=== PATIENT | female | born 1940 | race Caucasian/White ===

== ENCOUNTER 2022-09-12 12:41 | Emergency (ER) | payer MEDICARE, SELFPAY ==
[2022-09-12] VITALS (17 sets, daily range): BP systolic 127–182; BP diastolic 63–80; PULSE 52–98; RESP 16–25; TEMP 36.7; O2SAT 95–100; BMI 26.5
--- NOTE | 2022-09-12 12:49 | XR_ITS ---
The [address] [address] Patient Name: BETY JOHNSON MRN: [id number] date: 1940 Sex: F Assigned Patient Location: ER Current Patient Location: ER Accession/Order Number: [id number] Exam Date: 09/12/2022 13:03 Report Date: 09/12/2022 13:20 At the request of: CONSUELO LO Procedure: XR chest 1V EXAM: XR chest 1V HISTORY: chest pain COMPARISON: None. TECHNIQUE: Single view of the chest FINDINGS: Heart size normal. No focal consolidation, pleural effusion, pulmonary congestion or pneumothorax. XR/XR chest 1V IMPRESSION: No acute findings. Electronically authenticated by: WILIAN RAM Date: 09/12/2022 13:20
--- NOTE | 2022-09-12 12:49 | ECG_ITS ---
The [facility] Test Date: 2022-09-12 Pat Name: BETY JOHNSON Department: Room: - Gender: Female [employer]: : 1940 Requested By: ALEXIS PEREYRA Order Number: [id number] Reading MD: IRIS ELY Measurements Intervals [place] Rate: 68 P: 37 PA: 174 QRS: 50 QRSD: 82 T: 51 QT: 384 QTc: 402 Interpretive Statements 1100 Sinus rhythm 8102 Low QRS voltage in chest leads 9120 atypical ECG No previous ECG available for comparison Electronically Signed On 09-13-2022 7:07:44 EDT by IRIS ELY
--- NOTE | 2022-09-12 12:51 | ED.CHESTPAI1 ---
HPI - Chest Pain General Chief Complaint: Chest Pain Stated Complaint: CHEST PAIN AND DIZZINESS Time Seen by Provider: 09/12/22 12:46 History of Present Illness HPI narrative: 81-year-old female presents to the emergency department for chest pain. It started fifteen or twenty minutes ago when she was sitting at home. It's on the right side of her chest and goes through to her back. She states she got clammy when it happened. She has no personal history of heart disease. She states that the pain is letting up somewhat now. It was moderate. No unusual activity or any sort of injury. Related Data Home Medications Medication Instructions Recorded Confirmed amlodipine 5 mg tablet 5 mg PO DAILY 09/12/22 09/12/22 dorzolamide 22.3 mg-timolol 6.8 1 drp ophthalmic (eye) Q12H 09/12/22 09/12/22 mg/mL eye drops latanoprost 0.005 % eye drops 1 drp ophthalmic (eye) DAILY 09/12/22 09/12/22 lisinopril 10 mg tablet 10 mg PO DAILY 09/12/22 09/12/22 meclizine 12.5 mg tablet 12.5 mg PO TID PRN dizziness 09/12/22 09/12/22 omeprazole 20 mg capsule,delayed 20 mg PO DAILY 09/12/22 09/12/22 release Allergies Allergy/AdvReac Type Severity Reaction Status Date / Time No Known Drug Allergies Allergy Verified 09/12/22 12:53 Review of Systems ROS Narrative A ten point review of systems is negative except as noted above. Exam Narrative Exam Narrative: Nurses note and vital signs reviewed and patient is not hypoxic. General: The patient appears well and in no apparent distress. Patient is resting comfortably on cart. Skin: Warm, dry, no pallor noted. There is no rash noted. Head: Normocephalic, atraumatic Eye: Normal conjunctiva, no drainage Ears, Nose, Mouth, and Throat: oral mucosa is moist. Nares patent. Cardiovascular: Regular Rate and Rhythm Respiratory: Patient is in no distress, no accessory muscle use, lungs are clear to auscultation, no wheezing, rales or rhonchi Back: non-tender GI: soft and nontender Musculoskeletal: The patient has no evidence of calf tenderness, no pitting edema, symmetrical pulses noted bilaterally Neurological: A&O, normal speech Psychiatric: Cooperative Constitutional Vital Signs, click to edit/add: Last Vital Signs Temp 98.1 F 09/12/22 12:45 Pulse 54 L 09/12/22 14:40 Resp 19 09/12/22 14:40 BP 151/74 H 09/12/22 14:30 Pulse Ox 99 09/12/22 14:40 O2 Del Method Room Air 09/12/22 12:45 Course Vital Signs Vital signs: Vital Signs Temperature 98.1 F 09/12/22 12:45 Pulse Rate 78 09/12/22 12:45 Respiratory Rate 20 09/12/22 12:45 Blood Pressure 182/78 H 09/12/22 12:45 Pulse Oximetry 100 09/12/22 12:45 Oxygen Delivery Method Room Air 09/12/22 12:45 Temperature 98.1 F 09/12/22 12:45 Pulse Rate 54 L 09/12/22 14:40 Respiratory Rate 19 09/12/22 14:40 Blood Pressure 151/74 H 09/12/22 14:30 Pulse Oximetry 99 09/12/22 14:40 Oxygen Delivery Method Room Air 09/12/22 12:45 MDM - Chest Pain MDM Narrative Medical decision making narrative: workup is negative including two sets of troponin. Chest x-ray also negative. She's been having side effects of the lisinopril including a cough. She was supposed to see her PCP today. We'll have her stop the lisinopril for now and she'll call her PCP and reschedule the appointment, preferably in a few days. Treatment diagnosis and follow-up were discussed with the patient. At this point I do not suspect cardiac etiology. Treatment, diagnosis and follow-up were discussed with the patient and her . Differential Diagnosis Differential diagnosis: Likely pneumothorax, stable angina, atypical chest pain, st elevation myocardial infarction, costochondritis and chest pain Lab Data Attestation: I reviewed the patient's lab results. Labs: Lab Results 09/12/22 09/12/22 Range/Units 12:55 13:58 WBC 6.0 (4.0-11.0) 10^3/uL RBC 4.60 (4.20-5.40) 10^6/uL Hgb 14.3 (12.0-16.0) g/dL Hct 41.5 (36.0-48.0) % MCV 90.2 (81.0-99.0) fL MCH 31.1 (26.7-34.0) pg MCHC 34.5 (29.9-35.2) g/dL RDW 12.1 (11.0-15.0) % Plt Count 318 (150-450) 10^3/uL MPV 9.1 L (9.5-13.5) fL Neut % (Auto) 65.0 (43.0-75.0) % Lymph % (Auto) 25.9 (20.5-60.0) % Hickman % (Auto) 6.8 (1.7-12.0) % Eos % (Auto) 1.3 (0.9-7.0) % Baso % (Auto) 0.7 (0.2-2.0) % Neut # (Auto) 3.9 (1.4-6.5) 10^3/uL Lymph # (Auto) 1.6 (1.2-3.8) 10^3/uL Hickman # (Auto) 0.4 (0.3-0.8) 10^3/uL Eos # (Auto) 0.1 (0.0-0.7) 10^3/uL Baso # (Auto) 0.0 (0.0-0.1) 10^3/uL Abs Immat Gran (auto) 0.02 (0.00-0.03) 10^3/uL Imm/Tot Granulo (auto) 0.3 (0.0-0.5) % Sodium 135 L (136-145) mmol/L Potassium 4.1 (3.5-5.1) mmol/L Chloride 101 (98-107) mmol/L Carbon Dioxide 25.2 (21.0-32.0) mmol/L Anion Gap 12.9 BUN 10.0 (7.0-18.0) mg/dL Creatinine 0.75 (0.55-1.02) mg/dL Est GFR ( Amer) >60 (>=60) Est GFR (Non-Af Amer) >60 (>=60) BUN/Creatinine Ratio 13.3 Glucose 138 H (74-106) mg/dL Calcium 9.3 (8.5-10.1) mg/dL Troponin I High Sens 17.3 15.7 (4.0-51.3) pg/mL Imaging Data Chest x-ray: Radiologist's impression: no acute findings ECG Data Attestation: I personally reviewed and interpreted this ECG as follows: (EKG on my interpretation shows sinus rhythm with a rate of 68. No acute changes.) ECG interpretation date: 09/12/22 ECG interpretation time: 12:54 Heart Score History: Slightly/Non-Suspicious ECG: Normal Age: >65 years Risk Factors: 1 or 2 Risk Factors Troponin: <Normal Limit Total Heart Score Recommendations & Risks:: 3 Discharge Plan Discharge Chief Complaint: Chest Pain Clinical Impression: Chest pain Patient Disposition: Home, Self-Care Time of Disposition Decision: 14:50 Condition: Good Mode of Transportation: Private Vehicle Prescriptions / Home Meds: No Action amlodipine 5 mg tablet 5 mg PO DAILY dorzolamide-timolol 22.3-6.8 mg/mL drops 1 drp ophthalmic (eye) Q12H latanoprost 0.005 % drops 1 drp OPHTHALMIC (EYE) DAILY lisinopril 10 mg tablet 10 mg PO DAILY meclizine 12.5 mg tablet 12.5 mg PO TID PRN (Reason: dizziness) omeprazole 20 mg capsule,delayed release(DR/EC) 20 mg PO DAILY Instructions: Chest Pain (ED) Additional Instructions: discontinue lisinopril; call today to reschedule your appointment with Dr. Pérez Stand Alone Forms: Portal Instructions Referrals: Vidya Pérez MD [Primary Care Provider] - 1 week
[2022-09-12] MEDS: NITROGLYCERIN 0.4 MG TAB.SUBL PO ×2 (12:59→13:30)
[2022-09-12] MEDS: ASPIRIN 81 MG TAB.CHEW 324 MG PO (13:00)
[2022-09-12 13:06] LABS: Basophils Percent Auto 0.7 % (0.2-2.0); Eosinophils Absolute Auto 0.1 10^3/uL (0.0-0.7); Eosinophils Percent Auto 1.3 % (0.9-7.0); Hematocrit 41.5 % (36.0-48.0); Hemoglobin 14.3 g/dL (12.0-16.0); Immature Granulocytes Abs Auto 0.02 10^3/uL (0.00-0.03); Immature Granulocytes Pct Auto 0.3 % (0.0-0.5); Lymphocytes Absolute Auto 1.6 10^3/uL (1.2-3.8); Lymphocytes Percent Auto 25.9 % (20.5-60.0); Mean Corpuscular HGB Conc 34.5 g/dL (29.9-35.2); Mean Corpuscular Hemoglobin 31.1 pg (26.7-34.0); Mean Corpuscular Volume 90.2 fL (81.0-99.0); Mean Platelet Volume 9.1 fL (9.5-13.5); Monocytes Absolute Auto 0.4 10^3/uL (0.3-0.8); Monocytes Percent Auto 6.8 % (1.7-12.0); Neutrophils Absolute Auto 3.9 10^3/uL (1.4-6.5); Platelet Count 318 10^3/uL (150-450); Red Cell Distribution Width 12.1 % (11.0-15.0)
[2022-09-12 13:19] LABS: Anion Gap 12.9; BUN Creatinine Ratio 13.3; Calcium 9.3 mg/dL (8.5-10.1); Carbon Dioxide 25.2 mmol/L (21.0-32.0); Chloride 101 mmol/L (98-107); Estimated GFR (African America >60 (>=60); Estimated GFR (Non-African Ame >60 (>=60); Glucose 138 mg/dL (74-106); Potassium 4.1 mmol/L (3.5-5.1); Sodium 135 mmol/L (136-145); Troponin I High Sensitivity 17.3 pg/mL (4.0-51.3)
[2022-09-12 14:21] LABS: Troponin I High Sensitivity 15.7 pg/mL (4.0-51.3)
== END 2022-09-12 14:58 | disposition home or self-care (01) ==
PROVIDERS: Emergency Provider Emergency Medicine; PCP Family Medicine
DX: R07.9 Chest pain, unspecified (principal); Z79.899 Other long term (current) drug therapy
CPT/HCPCS: 36415; 71045; 80048; 84484; 85025; 93005; 99285

== ENCOUNTER 2022-11-07 07:50 | Outpatient (OUT) | payer MEDICARE, SELFPAY ==
--- NOTE | 2022-11-07 | NM_ITS ---
Patient: BETY JOHNSON Exam Date: 11/07/2022 : 1940 Gender:F Ordering : RICHMOND GR Admission #: [id number] Family : DR Vidya Pérez M.D. Order #: [id number] CLICK HERE TO VIEW EXAM RADIOLOGY REPORT PROCEDURE: NM WILBUR PERF SPECT REST STR COMPARISON: None. INDICATIONS: CHEST PAIN TECHNIQUE: Exam Description: Stress/Rest one day protocol gated SPECT Rest Imagin.6 mCi Tc-99m Cardiolite IV on 11/07/2022 Stress Imaging 31.5 mCi Tc-99m Cardiolite IV on 11/07/2022 Exercise Protocol: Power Heart Rate (bpm): Rest: 53 Max: 121 PMHR: 85 Blood Pressure: Rest: 124/78 Max: 184/86 Exercise Time: Minutes: 4 Seconds: 32 Stage Reached: Stage: 1 Mets 4.6 Symptoms: Rest and peak stress ECG findings were normal and the exercise portion of the study was normal per attending physician Dr. Gr . For more details please see separate cardiac stress test report. FINDINGS: QUALITY OF STUDY: Excellent. PERFUSION DEFECT: None. LOCATION: N/A SIZE: N/A. SEVERITY: N/A. TYPE: N/A. WALL MOTION: Normal. LV SIZE: Normal. 55 mL. TID / TCD: None; 0.8 LVEF: Normal. Calculated EF 78%. SUMMARY: Myocardial perfusion imaging study is NORMAL. CONCLUSION: 1. No reversible ischemia 2. Normal exercise test Dictated by: Storm Hernandez MD on 11/08/2022 at 10:54 Approved by: Storm Hernandez MD on 11/08/2022 at 10:56
--- NOTE | 2022-11-07 | PCN_ITS ---
CARDIAC STRESS TEST Requesting Physician:? Savanna Ramos M.D. Procedure Date:? 11/07/2022 ORDERING PROVIDER:? Savanna Ramos M.D. INDICATIONS:? Chest pain. STRESS TEST TYPE:? Treadmill with nuclear myocardial perfusion scan. Resting EKG:? Sinus bradycardia. Protocol:? Power Resting heart rate:? 53 Peak heart rate:? 121 Peak maximal heart rate percentage:? 85% Resting blood pressure:? 124/78 Peak blood pressure:? 184/86 Exercise time:? 4 minutes, 32 seconds Stage reached:? 1 Max METS:? 4.6 Reason for termination:? Target heart rate achieved. Heart rate recovery:? Normal. Chronotropic response index:? Abnormal, 0.77. Functional capacity:? Average. Blood pressure response:? Normal. CONCLUSIONS: 1.? Abnormal resting EKG with sinus bradycardia. 2.? No definite EKG changes meeting criteria for ischemia. 3.? Reyes treadmill score of 4, portending intermediate risk for angiographic coronary artery disease.? 4.? Please refer to separately interpreted and reported nuclear myocardial perfusion imaging. [facility]
== END 2022-11-07 07:51 | disposition home or self-care (01) ==
LOC: NM 07:51
PROVIDERS: PCP Family Medicine; Visit Provider Internal Medicine Cardiovascular Disease
DX: R07.9 Chest pain, unspecified (principal)
CPT/HCPCS: 78452; 93017; A9500

== ENCOUNTER 2022-11-09 09:57 | Outpatient (OUT) | payer MEDICARE, SELFPAY ==
--- NOTE | 2022-11-09 10:38 | CA_ITS ---
Patient: BETY JOHNSON Exam Date: 11/09/2022 : 1940 Gender:F Ordering : RICHMOND GR Admission #: [id number] Family : DR Vidya Pérez M.D. Order #: [id number] CLICK HERE TO VIEW EXAM ECHOCARDIOGRAM REPORT PROCEDURE: CA ECHO DOPPLER COMPLETE INDICATIONS: Dyspnea, hypertension COMPARISON: None. DESCRIPTION: COMPLETE ECHOCARDIOGRAM Real-time transthoracic echocardiography with 2D, M-mode, spectral and color flow Doppler performed. QUALITY: Technical quality was good. LEFT VENTRICLE: Normal chamber size. Mild concentric left ventricular hypertrophy. LV EF: Global left ventricular systolic function is normal; visually estimated ejection fraction is 60 to 65%. No obvious wall motion abnormalities. DIASTOLIC: Normal diastolic function. ATRIAL SEPTUM: Visually appears intact. LEFT ATRIUM: Normal chamber size. RIGHT ATRIUM: Normal chamber size. RIGHT VENTRICLE: Normal chamber size. Normal right ventricular systolic function. TRICUSPID VALVE: Normal mobility and thickness. No stenosis with trivial regurgitation. No evidence of pulmonary hypertension. RVSP 28 mmHg MITRAL VALVE: Normal mobility and thickness. No evidence of mitral valve stenosis. There is no mitral annular calcification. Mild mitral regurgitation. AORTIC VALVE: Normal trileaflet appearance. No visible sclerosis. Normal leaflet mobility. No evidence of aortic valve stenosis. Mild aortic regurgitation. AORTIC ROOT: Normal diameter and appearance. PULMONIC VALVE: Normal thickness and mobility. No stenosis. Mild regurgitation. PERICARDIUM: No evidence of pericardial effusion. IVC: Collapses with inspirations. CONCLUSION: 1. Global left ventricular systolic function is normal; visually estimated ejection fraction is 60 to 65% 2. Mildly increased left ventricular wall thickness 3. Normal diastolic function 4. Right ventricle is normal in size and systolic function 5. Mild mitral regurgitation 6. Mild aortic regurgitation 7. Mild pulmonic regurgitation Adult Echocardiography Procedure Report Left Ventricle LVEDD (3.7 - 5.6 cm): 3.72 cm LVESD (2.2 - 4.0 cm): 2.85 cm LVIVS thickness (0.6 - 1.2 cm): 1.06 cm LVPW thickness (0.5 - 1.0 cm): 1.02 cm e': 0.12 m/s E - e': 7.46 LVOT Max Gradient: 4.63 mm[Hg] LVOT Area (cm2): 1.08 m/s Peak Velocity (LVOT): 1.08 m/s Mean Velocity (LVOT): 0.73 m/s LVOT Diameter 1.79 cm Left Atrium LA Volume Index (2D A2C): 31.71 ml/m2 Left Atrium Systolic Dimension: 3.69 cm Mitral Valve MV E to A Ratio: 0.89 Mitral Valve A-Wave Peak Velocity: 0.97 m/s Mitral Valve E-Wave Peak Velocity: 0.86 m/s Right Ventricle Aorta AO Root Diam: 2.79 cm Aortic Valve AoV Area (Peak Cassius): 2.38 cm2, 2.38 cm2 Peak Velocity(Antegrade Flow): 1.13 m/s Peak Gradient(Antegrade Flow): 5.15 mm[Hg] Tricuspid Valve Peak Velocity (Regurgitant Flow): 2.26 m/s, 2.51 m/s, 2.49 m/s Pulmonic Valve Mean Gradient: 1.78 mm[Hg], 2.03 mm[Hg] Mean Velocity: 0.62 m/s, 0.66 m/s Peak Velocity: 0.92 m/s, 0.88 m/s Peak Gradient: 3.10 mm[Hg], 3.22 mm[Hg], 3.50 mm[Hg] Right Atrium Right Atrium Systolic Pressure: 32.02 ml, 32.02 ml Dictated by: Jacqueline Eric M.D. on 11/10/2022 at 16:45 Approved by: Jacqueline Eric M.D. on 11/10/2022 at 16:50
== END 2022-11-09 09:58 | disposition home or self-care (01) ==
LOC: CARD 09:57
PROVIDERS: PCP Family Medicine; Visit Provider Internal Medicine Cardiovascular Disease
DX: R06.02 Shortness of breath (principal); I08.8 Other rheumatic multiple valve diseases
CPT/HCPCS: 93306

== ENCOUNTER 2023-01-01 15:01 | Outpatient (OUT) | payer MEDICARE, SELFPAY ==
[2023-01-01 15:53] LABS: Anion Gap 13.5; BUN Creatinine Ratio 19.2; Calcium 8.2 mg/dL (8.5-10.1); Carbon Dioxide 28.1 mmol/L (21.0-32.0); Chloride 106 mmol/L (98-107); Estimated GFR (African America >60 (>=60); Estimated GFR (Non-African Ame >60 (>=60); Glucose 91 mg/dL (74-106); Potassium 3.6 mmol/L (3.5-5.1); Sodium 144 mmol/L (136-145)
== END 2023-01-01 15:02 | disposition home or self-care (01) ==
LOC: LAB 15:02
PROVIDERS: PCP Family Medicine; Visit Provider Internal Medicine Cardiovascular Disease
DX: I11.9 Hypertensive heart disease without heart failure (principal)
CPT/HCPCS: 36415; 80048

== ENCOUNTER 2023-04-06 10:51 | Outpatient (OUT) | payer MEDICARE, SELFPAY ==
--- NOTE | 2023-04-06 10:54 | MM_ITS ---
Patient Name: BETY JOHNSON MR#: [id number] : 1940 Exam Date: 04/06/2023 Ordering Doctor: DR Vidya Préez M.D. RADIOLOGY REPORT PROCEDURE: MM TOMOSYNTHESIS SCREENING BI COMPARISON: MG MAMM SCREEN CHRIS W CAD, 10/18/2018. MG MAMM SCREEN 3D CHRIS CAD, 12/07/2021. INDICATIONS: screening Calculator Name NCI Breast Cancer Risk Assessment Tool 5 Year Breast Cancer Risk 2.00% Lifetime Breast Cancer Risk 3.00% Personal Breast Cancer No Personal Ovarian Cancer No Treatments None Family Cancers None LOCATION: The [facility] BREAST COMPOSITION: Heterogeneously dense,which may obscure small masses. FINDINGS: DIAGNOSTIC CATEGORY 2--BENIGN FINDING. NO CHANGE FROM COMPARISON. Scattered benign-appearing calcifications are present. Scattered benign-appearing lymph nodes are present. RIGHT BREAST: No significant suspicious finding. LEFT BREAST: No significant suspicious finding. RECOMMENDATIONS: ROUTINE MAMMOGRAM AND CLINICAL EVALUATION IN 12 MONTHS. PLEASE NOTE: A NORMAL MAMMOGRAM DOES NOT EXCLUDE THE POSSIBILITY OF BREAST CANCER. A CLINICALLY SUSPICIOUS PALPABLE LUMP SHOULD BE BIOPSIED. Dictated by: Storm Hernandez MD on 04/06/2023 at 12:47 Approved by: Storm Hernandez MD on 04/06/2023 at 13:00
--- OUTSIDE RECORDS SUMMARY | 2023-04-06 11:01 | XMS_ITS | CCD ---
Author Name Unknown Address [address] [place] [address] Organization [facility] Care Team Providers Care Organizational Effectiveness Director Name Role Phone DR VIDYA PEREYRA Primary Care Unavailable GABI WARD Admitting Unavailable GABI WARD Attending Unavailable GABI WARD Consulting Unavailable ALINA MATOS Consulting UnavailVERNON Mariscal Consulting Unavailable HAFSA, DR VIDYA Mello Admitting Unavailable HAFSA, DR VIDYA Mello Attending Unavailable HAFSA, DR VIDYA Mello Primary Care Unavailable ROACH, DR VINICIUS Gonzalez Consulting Unavailable HAFSA, DR VIDYA Mello Consulting Unavailable Vidya Pereyra Unavailable Sneha Jaramillo Unavailable DO Joce Moreno Primary Care Provider MD Vidya Pereyra Attending Provider [phone] Vidya Pereyra Admitting Unavailable Vidya Pereyra Attending Unavailable Joce Moreno Primary Care Unavailable EULA NIETO Attending Unavailable SAVANNA RAMOS Attending Unavailable SAVANNA RAMOS Attending Unavailable Allergies Allergy Classification Reported Allergen(s) Allergy Type Date of Onset Reaction(s) Facility (1 source) Sulfonamides (Antibiotic) Drug allergy (disorder) [facility] Repository (8 sources) Sulfacetamide / Sulfur Drug Allergy Unknown [employer] Other (6 sources) Sulfamethoxazole / Trimethoprim Drug Allergy 09-01-19 Unknown [employer] Other (1 source) patient allergy list reviewed by nurse or physicia Propensity to adverse reactions 04-21-19 Comment:Done [employer] Other (1 source) Allergies Reconciled Propensity to adverse reactions Unknown [employer] Other (1 source) Sulfamethoxazole / Trimethoprim; Translations: [SULFAMETHOXAZOLE-T RIMETHOPRIM] Drug Allergy 10-28-19 [facility] Repository (1 source) Sulfonamides (Antibiotic); Translations: [SULFA (SULFONAMIDE ANTIBIOTICS)] Propensity to adverse reactions to drug (disorder) 10-28-19 [facility] Repository Medications Current Medications Medication Drug Class(es) Dates Sig (Normalized) Sig (Original) amLODIPine 5 mg oral tablet (8 sources) Dihydropyridine Calcium Channel Nhung amLODIPine Besylate 5 MG TAKE 1 TABLET BY MOUTH EVERY DAY FOR 90 DAYS for 90 Active azithromycin 250 mg oral tablet (1 source) Macrolide Antimicrobial Start: 06-15-2022 Azithromycin 250 MG as directed Orally 2 tabs po today, then 1 tab daily x 4 more days for 5 June, Active ciprofloxacin 250 mg oral tablet (2 sources) Quinolone Antimicrobial Start: 12-05-2022 take 1 tablet by mouth every twelve hours Ciprofloxacin HCl 250 MG 1 tablet Orally every 12 hrs for 5 day(s) Nov, Active lisinopril 10 mg oral tablet (4 sources) Angiotensin Converting Enzyme Inhibitor take 1 tablet by mouth every twenty-four hours Lisinopril 10 MG 1 tablet Orally Once a day for 90 days Active losartan potassium 50 mg oral tablet (4 sources) Angiotensin 2 Receptor Nhung take 1 tablet by mouth every twenty-four hours Losartan Potassium 50 MG 1 tablet once a day for 30 days Active take 1 tablet by tiana th every twenty-four hours Losartan Potassium 25 MG 1 tablet Orally Once a day for 30 days Active meclizine hydrochloride 12.5 mg oral tablet (2 sources) Antiemetic Start: 09-06-2022 take 1 tablet by mouth every eight hours Meclizine HCl 12.5 MG 1 tablet as needed Orally every 8 hrs for 10 days Sep, Active omeprazole 20 mg delayed release oral capsule (8 sources) Proton Pump Inhibitor take 1 capsule by mouth once daily Omeprazole 20 MG Take 1 capsule by mouth once daily for 90 Active take 1 tablet by mouth once manny y Omeprazole 20 MG 1 tablet 30 minutes before morning meal Orally Once a day Active simvastatin 20 mg oral tablet (8 sources) HMG-CoA Reductase Inhibitor take 1 tablet by mouth every twenty-four hours Simvastatin 20 MG 1 tablet in the evening Orally Once a day Active Completed/Discontinued Medications Medication Drug Class(es) Dates Sig (Normalized) Sig (Original) acetaminophen 325 mg / HYDROcodone bitartrate 5 mg oral tablet (1 source) Opioid Agonist take 1 tablet by tiana th every six hours HYDROcodone-Acetami nophen 5-325 MG 1 tablet as needed Orally every 6 hrs Not-Taking Problems Active Problems Problem Classification Problem Date Documented Date Episodic/Chronic Chronic obstructive pulmonary disease and bronchiectasis (1 source) Bronchitis, not specified as acute or chronic Episodic Conditions associated with dizziness or vertigo (6 sources) Benign paroxysmal positional vertigo; Translations: [Benign paroxysmal vertigo, unspecified ear] Onset: 05-29-2017 Episodic Disorders of lipid metabolism (7 sources) Hyperlipidemia, unspecified; Translations: [Hyperlipidemia] Onset: 12-07-2021 Chronic E Codes: Struck by; against (1 source) Striking against or struck by other objects, initial encounter; Translations: [STRIKING AGNST/STRUCK OTH OBJ INIT] Onset: 02-01-2022 Episodic Esophageal disorders (3 sources) Gastroesophageal reflux disease without esophagitis; Translations: [Gastro-esophageal reflux disease without esophagitis] Chronic Essential hypertension (14 sources) Essential (primary) hypertension; Translations: [Essential hypertension] Onset: 02-01-2022 Chronic Genitourinary symptoms and ill-defined conditions (5 sources) Dysuria; Translations: [Dysuria] Onset: 10-12-2016 Episodic Headache; including migraine (4 sources) Headache; including migraine; Translations: [HEADACHE UNSPECIFIED] Onset: 01-28-2022 Heart valve disorders (4 sources) Nonrheumatic aortic (valve) insufficiency; Translations: [Nonrheumatic mitral (valve) insufficiency] Onset: 12-18-2022 Chronic Hypertension with complications and secondary hypertension (2 sources) Hypertensive heart disease without heart failure; Translations: [Hypertensive heart disease without heart failure] Onset: 12-18-2022 Chronic Immunizations and screening for infectious disease (3 sources) Vaccination given; Translations: [Encounter for immunization] Episodic Nonspecific chest pain (11 sources) Chest pain; Translations: [Chest pain, unspecified] Onset: 04-20-2014 Episodic Osteoarthritis (3 sources) Osteoarthritis; Translations: [Polyosteoarthritis, unspecified] Onset: 04-27-2014 Chronic Other aftercare (1 source) Other chcf (current) drug therapy; Translations: [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 THERAPY] Onset: 02-01-2022 Episodic Other injuries and conditions due to external causes (3 sources) History of fall; Translations: [History of falling] Episodic Other screening for suspected conditions (not mental disorders or infectious disease) (1 source) Encounter for screening mammogram for malignant neoplasm of breast; Translations: [ENC SCR MAMMO MALIG NEOPLASM BREAST] Onset: 12-12-2021 Episodic Past or Other Problems Problem Classification Problem Date Documented Da te Episodic/Chronic Acute bronchitis (3 sources) Acute bronchitis; Translations: [Acute bronchitis, unspecified] Onset: 04-28-2015 Episodic Headache; including migraine (1 source) Headache; Translations: [Headache] Onset: 05-29-2017 Episodic Inflammatory diseases of female pelvic organs (3 sources) Acute vaginitis; Translations: [Acute vaginitis] Onset: 09-14-2014 Episodic Other gastrointestinal disorders (3 sources) Heartburn; Translations: [Heartburn] Onset: 04-20-2014 Episodic Other injuries and conditions due to external causes (1 source) Closed fracture; Translations: [Closed fracture of unspecified bone] Onset: 01-28-2013 Episodic Other lower respiratory disease (2 sources) Other forms of dyspnea; Translations: [Other forms of dyspnea] Onset: 10-27-2022 Episodic Spondylosis; intervertebral disc disorders; other back problems (2 sources) Low back pain; Translations: [Lumbago] Onset: 01-27-2013 Episodic Results Test Name Value Interpretation Reference Range Facility Office Visiton 03-02-2023 Follow-up visit [id number] Ana Mays 1940 F Date Provider Department Center 03/02/2023 120-EULA NIETO LYNDA [place] Family History Problem Relation Age of Onset Coronary artery disease Father Cancer Daughter Family Status - Relation Status Age at Father Daughter Other Level of Service:66448 CO OFFICE/OUTPATIENT ESTABLISHED LOW MDM 20 MIN Normal [facility] Office Visiton 12-18-2022 Follow-up visit [id number] Ana Mays 1940 F Date Provider Department Center 12/18/2022 3848-SAVANNA RAMOS Family History Problem Relation Age of Onset Coronary artery disease Father Cancer Daughter Family Status - Relation Status Age at Father Daughter Other Level of Service:30766 CO OFFICE/OUTPATIENT ESTABLISHED MOD MDM 30-39 MIN Normal [facility] Urine Cultureon 12-05-2022 Bacteria identified Cx Nom (U) Reason for Exam Dysuria Urine Reason for Exam: Dysuria : Urine 20,000 colonies/ml mixed bacterial skin contaminants 2 Days PERFORMED BY: [facility] [address] [id number] PATHOLOGIST [employer]ER WILFRED SALAS M.D. Normal [facility] Comment on above: Performed By: #### C UU #### [facility] [address] [place] [address] [facility] Office Visiton 10-27-2022 Follow-up visit [id number] Ana Mays 1940 F Date Provider Department Center 10/27/2022 SAVANNA MCDANIEL [facility] Family History Problem Relation Age of Onset Coronary artery disease Father Cancer Daughter Family Status - Relation Status Age at Father Daughter Other Level of Service:29900 CO OFFICE/OUTPATIENT NEW MODERATE MDM 45-59 MINUTES Normal [facility] CARDIAC CRIS ADMITon 022 CK [Catalytic activity/Vol] 58 U/L Normal 26-192 [facility] Comment on above: Performed By: #### C MADM #### [facility] [address] [address] [address] Lamberto Hamm CK.MB [Mass/Vol] 1.23 ng/mL Normal <=3.[address] [facility] Comment on above: Performed By: #### C MADM #### [facility] [address] [address] [address] Lamberto Hamm HSTROP 10.2 pg/mL Normal 4.0-51.3 [facility] Comment on above: Result Comment: CUT- OFF POINTS HAVE BEEN ESTABLISHED BASED ON THE FOURTH UNIVERSAL DEFINITIONS OF MYOCARDIAL INFARCTION. THE UPPER REFERENCE LIMIT (URL) OF TROPONIN, DEFINED THE 99TH PERCENTILE OF cTnI DISTRIBUTION IN A REFERENCE POPULATION, HAS BEEN CONFIRMED THE DECISION THRESHOLD FOR [place] DIAGNOSIS. Performed By: #### C MADM #### [facility] [address] [address] [address] Lamberto Hamm WILBUR 59 ng/mL Normal 9-82 [facility] Comment on above: Performed By: #### C MADM #### [facility] [address] [place] [address] Dr. Lamberto Hamm CBC AUTO DIFFon 01-28-2022 BASO # 0.0 103/ul Normal 0.0-0.1 [facility] Comment on above: Performed By: #### C BC #### [facility] [address] [place] [address] Dr. Lamberto Hamm Basophils/100 WBC (Bld) 0.5 % Normal 0.2-2.0 [facility] Comment on above: Performed By: #### C BC #### [facility] [address] [place] [address] Dr. Lamberto Hamm EO # 0.2 103/ul Normal 0.0-0.7 [facility] Comment on above: Performed By: #### C BC #### [facility] [address] [place] [address] Dr. Lamberto Hamm Eosinophils/100 WBC (Bld) 3.2 % Normal 0.9-7.0 [facility] Comment on above: Performed By: #### C BC #### [facility] [address] [place] [address] Dr. Lamberto Hamm Erythrocyte distribution width (RBC) [Ratio] 12.4 % Normal 11.0-15.0 [facility] Comment on above: Performed By: #### C BC #### [facility] [address] [place] [address] Dr. Lamberto Hamm Hematocrit (Bld) [Volume fraction] 40.3 % Normal 36.0-48.0 [facility] Comment on above: Performed By: #### C BC #### [facility] [address] [place] [address] Dr. Lamberto Hamm Hemoglobin (Bld) [Mass/Vol] 13.9 g/dL Normal 12.0-16.0 [facility] Comment on above: Performed By: #### C BC #### [facility] [address] [place] [address] Dr. Lamberto Hamm IG # 0.01 10e3/ul Normal 0.00-0.03 [facility] Comment on above: Performed By: #### C BC #### [facility] [address] [place] [address] Dr. Lamberto Hamm IG % 0.2 % Normal 0.0-0.5 [facility] Comment on above: Performed By: #### C BC #### [facility] [address] [place] [address] Dr. Lamberto Hamm LYMPH # 1.0 103/ul Critically low 1.2-3.8 [facility] Comment on above: Performed By: #### C BC #### [facility] [address] [place] [address] Dr. Lamberto Hamm Lymphocytes/100 WBC (Bld) 17.4 % Critically low 20.5-60.0 [facility] Comment on above: Performed By: #### C BC #### [facility] [address] [place] [address] Dr. Lamberto Hamm MANUAL DIFF REQ NO Normal [facility] Comment on above: Performed By: #### C BC #### [facility] [address] [place] [address] Dr. Lamberto Hamm MCH (RBC) [Entitic mass] 30.8 pg Normal 26.7-34.0 [facility] Comment on above: Performed By: #### C BC #### [facility] [address] [place] [address] Dr. Lamberto Hamm MCHC (RBC) [Mass/Vol] 34.5 g/dL Normal 29.9-35.2 [facility] Comment on above: Performed By: #### C BC #### [facility] [address] [place] [address] Dr. Lamberto Hamm MCV (RBC) [Entitic vol] 89.2 fL Normal 81.0-99.0 [facility] Comment on above: Performed By: #### C BC #### [facility] [address] [place] [address] Dr. Lamberto Hamm MONO # 0.5 103/ul Normal 0.3-0.8 [facility] Comment on above: Performed By: #### C BC #### [facility] [address] [place] [address] Dr. Lamberto Hamm Monocytes/100 WBC (Bld) 7.7 % Normal 1.7-12.0 [facility] Comment on above: Performed By: #### C BC #### [facility] [address] [place] [address] Dr. Lamberto Hamm NEUT # 4.2 103/ul Normal 1.4-6.5 [facility] Comment on above: Performed By: #### C BC #### [facility] [address] [place] [address] Dr. Lamberto Hamm Neutrophils/100 WBC (Bld) 71.0 % Normal 43.0-75.0 [facility] Comment on above: Performed By: #### C BC #### [facility] [address] [place] [address] Dr. Lamberto Hamm Platelet mean volume (Bld) [Entitic vol] 9.5 fL Normal 9.5-13.5 [facility] Comment on above: Performed By: #### C BC #### [facility] [address] [place] [address] Dr. Lamberto Hamm PLT 284 103/ul Normal 150-450 [facility] Comment on above: Performed By: #### C BC #### [facility] [address] [place] [address] Dr. Lamberto Hamm RBC 4.52 106/ul Normal 4.20-5.40 [facility] Comment on above: Performed By: #### C BC #### [facility] [address] [place] [address] Dr. Lamberto Hamm WBC 5.9 103/ul Normal 4.0-11.0 [facility] Comment on above: Performed By: #### C BC #### [facility] [address] [place] [address] HEAD WO CONon 01-28-2022 CT HEAD WO CON EXAMINATION: CT HEAD WO CON HISTORY: Headache CT head 11/12/2019 TECHNIQUE: CT examination of the head without IV contrast. Dose reduction techniques were achieved by using automated exposure control and/or adjustment of mA and/or kV according to patient size and/or use of iterative reconstruction technique. FINDINGS: Calvarium/skull base: No evidence of acute fracture or destructive lesion. Mastoids and middle ears demonstrate no substantial mucosal disease. Paranasal sinuses: No air fluid levels. Brain: No acute intracranial hemorrhage. No acute large vascular territory infarct. Minimal parenchymal volume loss with associated prominence of the ventricular system and sulci. Similar focal area of hypoattenuation along the anterior left frontal horn of the lateral ventricle unchanged from 2019 likely relating to remote infarct versus sequela small vessel disease. No mass lesion or mass effect. No hydrocephalus. Intracranial atherosclerosis. IMPRESSION: 1. No CT evidence for acute intracranial process. 2. Mild senescent changes detailed above. Electronically authenticated by: ALINA MATOS Date: 2022-01-28 09:32 Normal [facility] PROF 14(COMP METB)on 022 Albumin [Mass/Vol] 3.6 g/dL Normal 3.4-5.0 [facility] Comment on above: Performed By: #### C MP #### [facility] [address] [place] [address] Dr. Lamberto Hamm Albumin/Globulin [Mass ratio] 1.0 {ratio} Normal [facility] Comment on above: Performed By: #### C MP #### [facility] [address] [place] [address] Dr. Lamberto Hamm ALP [Catalytic activity/Vol] 84 U/L Normal 46-116 [facility] Comment on above: Performed By: #### C MP #### [facility] [address] [address] [address] Lamberto Hamm ALT [Catalytic activity/Vol] 23 U/L Normal 14-59 [facility] Comment on above: Performed By: #### C MP #### [facility] [address] [place] [address] Dr. Lamberto Hamm Anion gap [Moles/Vol] 15.1 mmol/L Normal [facility] Comment on above: Performed By: #### C MP #### [facility] [address] [address] [address] Lamberto Hamm AST [Catalytic activity/Vol] 20 U/L Normal 15-37 [facility] Comment on above: Performed By: #### C MP #### [facility] [address] [address] [address] Lamberto Hamm Bilirubin [Mass/Vol] 0.5 mg/dL Normal 0.2-1.0 [facility] Comment on above: Performed By: #### C MP #### [facility] [address] [place] [address] Dr. Lamberto Hamm Calcium [Mass/Vol] 9.0 mg/dL Normal 8.5-10.1 [facility] Comment on above: Performed By: #### C MP #### [facility] [address] [place] [address] Dr. Lamberto Hamm Chloride [Moles/Vol] 102 mmol/L Normal 98-107 [facility] Comment on above: Performed By: #### C MP #### [facility] [address] [place] [address] Dr. Lamberto Hamm CO2 [Moles/Vol] 26.8 mmol/L Normal 21.0-32.0 [facility] Comment on above: Performed By: #### C MP #### [facility] [address] [place] [address] Dr. Lamberto Hamm Creatinine [Mass/Vol] 0.66 mg/dL Normal 0.55-1.02 [facility] Comment on above: Performed By: #### C MP #### [facility] [address] [place] [address] Dr. Lamberto Hamm EGFR-AF CHADIAN >60 Normal >=[address] [facility] Comment on above: Performed By: #### C MP #### [facility] [address] [place] [address] Dr. Lamberto Hamm EGFR-NON AF CHADIAN >60 Normal >=60 [facility] Comment on above: Performed By: #### C MP #### [facility] [address] [place] [address] Dr. Lamberto Hamm Globulin (S) [Mass/Vol] 3.6 g/dL Normal [facility] Comment on above: Performed By: #### C MP #### [facility] [address] [address] [address] Lamberto Hamm Glucose [Mass/Vol] 103 mg/dL Normal 74-106 [facility] Comment on above: Performed By: #### C MP #### [facility] [address] [address] [address] Lamberto Hamm Potassium [Moles/Vol] 3.9 mmol/L Normal 3.5-5.1 [facility] Comment on above: Performed By: #### C MP #### [facility] [address] [address] [address] Lamberto Hamm Protein [Mass/Vol] 7.2 g/dL Normal 6.4-8.2 [facility] Comment on above: Performed By: #### C MP #### [facility] [address] [address] [address] Lamberto Hamm Sodium [Moles/Vol] 140 mmol/L Normal 136-145 [facility] Comment on above: Performed By: #### C MP #### [facility] [address] [address] [address] Lamberto Hamm Urea nitrogen [Mass/Vol] 8.0 mg/dL Normal 7.0-18.0 [facility] Comment on above: Performed By: #### C MP #### [facility] [address] [address] [address] Lamberto Hamm Urea nitrogen/Creatinin e [Mass ratio] 12.1 mg/mg Normal [facility] Comment on above: Performed By: #### C MP #### [facility] [address] [address] [address] Lamberto Hamm XR CHEST 1 Von 01-28-2022 XR CHEST 1 V EXAM: XR CHEST 1 V INDICATION: Dizziness. COMPARISON: None. TECHNIQUE: Single frontal view of the chest FINDINGS: Normal cardiomediastinal contours. Mild biapical pleural parenchymal scarring. No consolidative process. Probable subcentimeter calcified granuloma in the right lower lung field. No pleural effusion or pneumothorax. No acute osseous abnormality. IMPRESSION: No acute cardiopulmonary process. Electronically authenticated by: VERNON CLEANING Date: 2022-01-28 09:27 Normal [facility] CBC AUTO DIFFon 12-07-2021 BASO # 0.0 103/ul Normal 0.0-0.1 [facility] Comment on above: Performed By: #### C BC #### [facility] [address] [address] [address] Lamberto Hamm Basophils/100 WBC (Bld) 0.5 % Normal 0.2-2.0 [facility] Comment on above: Performed By: #### C BC #### [facility] [address] [place] [address] Dr. Lamberto Hamm EO # 0.1 103/ul Normal 0.0-0.7 [facility] Comment on above: Performed By: #### C BC #### [facility] [address] [place] [address] Dr. Lamberto Hamm Eosinophils/100 WBC (Bld) 1.3 % Normal 0.9-7.0 [facility] Comment on above: Performed By: #### C BC #### [facility] [address] [place] [address] Dr. Lamberto Hamm Erythrocyte distribution width (RBC) [Ratio] 12.0 % Normal 11.0-15.0 [facility] Comment on above: Performed By: #### C BC #### [facility] [address] [place] [address] Dr. Lamberto Hamm Hematocrit (Bld) [Volume fraction] 41.9 % Normal 36.0-48.0 [facility] Comment on above: Performed By: #### C BC #### [facility] [address] [place] [address] Dr. Lamberto Hamm Hemoglobin (Bld) [Mass/Vol] 13.9 g/dL Normal 12.0-16.0 [facility] Comment on above: Performed By: #### C BC #### [facility] [address] [place] [address] Dr. Lamberto Hamm IG # 0.02 10e3/ul Normal 0.00-0.03 [facility] Comment on above: Performed By: #### C BC #### [facility] [address] [place] [address] Dr. Lamberto Hamm IG % 0.3 % Normal 0.0-0.5 [facility] Comment on above: Performed By: #### C BC #### [facility] [address] [place] [address] Dr. Lamberto Hamm LYMPH # 1.7 103/ul Normal 1.2-3.8 [facility] Comment on above: Performed By: #### C BC #### [facility] [address] [place] [address] Dr. Lamberto Hamm Lymphocytes/100 WBC (Bld) 27.0 % Normal 20.5-60.0 [facility] Comment on above: Performed By: #### C BC #### [facility] [address] [place] [address] Dr. Lamberto Hamm MANUAL DIFF REQ NO Normal [facility] Comment on above: Performed By: #### C BC #### [facility] [address] [place] [address] Dr. Lamberto Hamm MCH (RBC) [Entitic mass] 30.5 pg Normal 26.7-34.0 [facility] Comment on above: Performed By: #### C BC #### [facility] [address] [place] [address] Dr. Lamberto Hamm MCHC (RBC) [Mass/Vol] 33.2 g/dL Normal 29.9-35.2 [facility] Comment on above: Performed By: #### C BC #### [facility] [address] [place] [address] Dr. Lamberto Hamm MCV (RBC) [Entitic vol] 91.9 fL Normal 81.0-99.0 [facility] Comment on above: Performed By: #### C BC #### [facility] [address] [place] [address] Dr. Lamberto Hamm MONO # 0.5 103/ul Normal 0.3-0.8 [facility] Comment on above: Performed By: #### C BC #### [facility] [address] [address] [address] Lamberto Hamm Monocytes/100 WBC (Bld) 7.9 % Normal 1.7-12.0 [facility] Comment on above: Performed By: #### C BC #### [facility] [address] [address] [address] Lamberto Hamm NEUT # 4.0 103/ul Normal 1.4-6.5 [facility] Comment on above: Performed By: #### C BC #### [facility] [address] [address] [address] Labmerto Hamm Neutrophils/100 WBC (Bld) 63.0 % Normal 43.0-75.0 [facility] Comment on above: Performed By: #### C BC #### [facility] [address] [place] [address] Dr. Lamberto Hamm Platelet mean volume (Bld) [Entitic vol] 9.6 fL Normal 9.5-13.5 [facility] Comment on above: Performed By: #### C BC #### [facility] [address] [place] [address] Dr. Lamberto Hamm PLT 308 103/ul Normal 150-450 [facility] Comment on above: Performed By: #### C BC #### [facility] [address] [place] [address] Dr. Lamberto Hamm RBC 4.56 106/ul Normal 4.20-5.40 [facility] Comment on above: Performed By: #### C BC #### [facility] [address] [place] [address] Dr. Lamberto Hamm WBC 6.4 103/ul Normal 4.0-11.0 [facility] Comment on above: Performed By: #### C BC #### [facility] [address] [place] [address] Dr. Lamberto Hamm LIPID PROFILEon 12-07-2021 CHOL-HDL RATIO NORM SEE BELOW Normal [facility] Comment on above: Result Comment: 3.3 - 4.4 LOW RISK 4.4 - 7.1 AVERAGE RISK 7.1 - 11.0 MODERATE RISK >11.0 HIGH RISK Performed By: #### C MP, LIPID #### [facility] [address] [address] [address] Lamberto Hamm Cholesterol [Mass/Vol] 218 mg/dL Critically high <=200 [facility] Comment on above: Performed By: #### C MP, LIPID #### [facility] [address] [address] [address] Lamberto Hamm Cholesterol in HDL [Mass/Vol] 77 mg/dL Critically high 40-60 [facility] Comment on above: Performed By: #### C MP, LIPID #### [facility] [address] [place] [address] Dr. Lamberto Hamm Cholesterol in LDL [Mass/Vol] 121.6 mg/dL Normal [facility] Comment on above: Performed By: #### C MP, LIPID #### [facility] [address] [place] [address] Dr. Lamberto Hamm Cholesterol.total/ Cholesterol in HDL [Mass ratio] 2.8 {ratio} Normal [facility] Comment on above: Performed By: #### C MP, LIPID #### [facility] [address] [place] [address] Dr. Lamberto Hamm HDL NORMAL > or = 60 mg/dl - LO W CARDIOVASCULAR RISK <40 mg/dl - HIGH CARDIOVASCULAR RISK Normal [facility] Comment on above: Performed By: #### C MP, LIPID #### [facility] [address] [place] [address] Dr. Lamberto Hamm LDL CALC NORMAL SEE BELOW Normal [facility] Comment on above: Result Comment: <100 mg/dl OPTIMAL 100 - 129 mg/dl NEAR OR ABOVE OPTIMAL 130 - 159 mg/dl BORDERLINE HIGH 160 - 189 mg/dl HIGH >190 mg/dl VERY HIGH Performed By: #### C MP, LIPID #### [facility] [address] [place] [address] Dr. Lamberto Hamm Triglyceride [Mass/Vol] 97 mg/dL Normal <=150 [facility] Comment on above: Performed By: #### C MP, LIPID #### [facility] [address] [address] [address] Lamberto Hamm VLDL CALC 19.4 mg/dL Normal [facility] Comment on above: Performed By: #### C MP, LIPID #### [facility] [address] [address] [address] Lamberto Hamm MG MAMM SCREEN 3D CHRIS CADon 12-07-2021 MG MAMM SCREEN 3D CHRIS CAD Patient: ANA MAYS Exam Date: 12/07/2021 : 1940 Gender:F Ordering : DR VIDYA PEREYRA M.D. Admission #: [id number] Family : Order #: [id number] CLICK HERE TO VIEW EXAM RADIOLOGY REPORT PROCEDURE: MAMMOGRAM SCREENING 3D BILATERAL CAD COMPARISON: MG MAMM SCREEN CHRIS W CAD, 06/22/2017. MG MAMM SCREEN CHRIS W CAD, 10/18/2018. INDICATIONS: Screening mammography Calculator Name NCI Breast Cancer Risk Assessment Tool 5 Year Breast Cancer Risk 2.00% Lifetime Breast Cancer Risk 3.40% Personal Breast Cancer No Personal Ovarian Cancer No Treatments None Family Cancers None LOCATION: [facility] BREAST COMPOSITION: Heterogeneously dense,which may obscure small masses. FINDINGS: DIAGNOSTIC CATEGORY 2--BENIGN FINDING. NO CHANGE FROM COMPARISON. Scattered benign-appearing calcifications are present. Scattered benign-appearing lymph nodes are present. RIGHT BREAST: No significant suspicious finding. LEFT BREAST: No significant suspicious finding. RECOMMENDATIONS: ROUTINE MAMMOGRAM AND CLINICAL EVALUATION IN 12 MONTHS. PLEASE NOTE: A NORMAL MAMMOGRAM DOES NOT EXCLUDE THE POSSIBILITY OF BREAST CANCER. A CLINICALLY SUSPICIOUS PALPABLE LUMP SHOULD BE BIOPSIED. Dictated by: Vinicius Hernandez MD on 12/07/2021 at 12:54 Approved by: Vinicius Hernandez MD on 12/07/2021 at 13:05 Normal [facility] PROF 14(COMP METB)on 022 Albumin [Mass/Vol] 3.8 g/dL Normal 3.4-5.0 [facility] Comment on above: Performed By: #### C MP, LIPID #### [facility] [address] [address] [address] Lamberto Hamm Albumin/Globulin [Mass ratio] 1.0 {ratio} Normal [facility] Comment on above: Performed By: #### C HAILY, LIPID #### [facility] [address] [address] [address] Lamberto Hamm ALP [Catalytic activity/Vol] 92 U/L Normal 46-116 [facility] Comment on above: Performed By: #### C MP, LIPID #### [facility] [address] [address] [address] Lamberto Hamm ALT [Catalytic activity/Vol] 22 U/L Normal 14-59 [facility] Comment on above: Performed By: #### C MP, LIPID #### [facility] [address] [address] [address] Lamberto Hamm Anion gap [Moles/Vol] 11.0 mmol/L Normal [facility] Comment on above: Performed By: #### C MP, LIPID #### [facility] [address] [address] [address] Lamberto Hamm AST [Catalytic activity/Vol] 17 U/L Normal 15-37 [facility] Comment on above: Performed By: #### C MP, LIPID #### [facility] [address] [address] [address] Lamberto Hamm Bilirubin [Mass/Vol] 0.6 mg/dL Normal 0.2-1.0 [facility] Comment on above: Performed By: #### C MP, LIPID #### [facility] [address] [address] [address] Lamberto Hamm Calcium [Mass/Vol] 9.4 mg/dL Normal 8.5-10.1 [facility] Comment on above: Performed By: #### C MP, LIPID #### [facility] [address] [address] [address] Lamberto Hamm Chloride [Moles/Vol] 101 mmol/L Normal 98-107 [facility] Comment on above: Performed By: #### C MP, LIPID #### [facility] [address] [address] [address] Lamberto Hamm CO2 [Moles/Vol] 30.0 mmol/L Normal 21.0-32.0 [facility] Comment on above: Performed By: #### C MP, LIPID #### [facility] [address] [address] [address] Lamberto Hamm Creatinine [Mass/Vol] 0.72 mg/dL Normal 0.55-1.02 [facility] Comment on above: Performed By: #### C MP, LIPID #### [facility] [address] [address] [address] Lamberto Hamm EGFR-AF CHADIAN >60 Normal >=[address] [facility] Comment on above: Performed By: #### C MP, LIPID #### [facility] [address] [address] [address] Lamberto Hamm EGFR-NON AF CHADIAN >60 Normal >=60 [facility] Comment on above: Performed By: #### C MP, LIPID #### [facility] [address] [place] [address] Dr. Lamberto Hamm Globulin (S) [Mass/Vol] 3.8 g/dL Normal [facility] Comment on above: Performed By: #### C MP, LIPID #### [facility] [address] [place] [address] Dr. Lamberto Hamm Glucose [Mass/Vol] 100 mg/dL Normal 74-106 [facility] Comment on above: Performed By: #### C MP, LIPID #### [facility] [address] [place] [address] Dr. Lamberto Hamm Potassium [Moles/Vol] 4.0 mmol/L Normal 3.5-5.1 [facility] Comment on above: Performed By: #### C MP, LIPID #### [facility] [address] [place] [address] Dr. Lamberto Hamm Protein [Mass/Vol] 7.6 g/dL Normal 6.4-8.2 [facility] Comment on above: Performed By: #### C MP, LIPID #### [facility] [address] [place] [address] Dr. Lamberto Hamm Sodium [Moles/Vol] 138 mmol/L Normal 136-145 [facility] Comment on above: Performed By: #### C MP, LIPID #### [facility] [address] [place], [place] [address] Dr. Lamberto Hmam Urea nitrogen [Mass/Vol] 14.0 mg/dL Normal 7.0-18.0 [facility] Comment on above: Performed By: #### C MP, LIPID #### [facility] [address] [place], [place] [address] Dr. Lamberto Hamm Urea nitrogen/Creatinin e [Mass ratio] 19.4 mg/mg Normal [facility] Comment on above: Performed By: #### C MP, LIPID #### [facility] [address] [place], [place] [address] Dr. Lamberto Hamm Vital Signs Date Time Vital Sign Value Performing Clinician Facility 12-05-2022 09:30-0400 Body height 152.4 cm Vidya Pereyra Other [facility] Other 12-05-2022 09:30-0400 Body mass index (BMI) [Ratio] 27.77 kg/m2 Vidya Pereyra Other [facility] Other 12-05-2022 09:30-0400 Body weight 64.5 kg Vidya Pereyra Other [facility] Other 12-05-2022 09:30-0400 Diastolic blood pressure 81 mm[Hg] Vidya Pereyra Other [facility] Other 12-05-2022 09:30-0400 Systolic blood pressure 145 mm[Hg] Vidya Pereyra Other [facility] Other 10-16-2022 10:30-0400 Body height 152.4 cm Vidya Pereyra Other [facility] Other 10-16-2022 10:30-0400 Body mass index (BMI) [Ratio] 27.85 kg/m2 Vidya Pereyra Other [facility] [employer] Other 10-16-2022 10:30-0400 Body weight 64.68 kg Vidya Pereyra Other [facility] Other 10-16-2022 10:30-0400 Diastolic blood pressure 81 mm[Hg] Vidya Pereyra Other [facility] [employer] Other 10-16-2022 10:30-0400 Respiratory rate 12 /min Vidya Pereyra Other [facility] Other 10-16-2022 10:30-0400 Systolic blood pressure 179 mm[Hg] Vidya Pereyra Other [facility] [employer] Other 09-15-2022 12:00-0400 Body height 152.4 cm Vidya Pereyra Other [facility] Other 09-15-2022 12:00-0400 Body mass index (BMI) [Ratio] 28.51 kg/m2 Vidya Pereyra Other [facility] Other 09-15-2022 12:00-0400 Body weight 66.23 kg Vidya Pereyra Other [facility] Other 09-15-2022 12:00-0400 Diastolic blood pressure 77 mm[Hg] Vidya Pereyra Other [facility] Other 09-15-2022 12:00-0400 Systolic blood pressure 157 mm[Hg] Vidya Pereyra Other [facility] Other 09-06-2022 13:30-0400 Body height 152.4 cm Sneha Jaramillo Other [facility] Other 09-06-2022 13:30-0400 Body mass index (BMI) [Ratio] 28.12 kg/m2 Sneha Jaramillo Other [facility] Other 09-06-2022 13:30-0400 Body weight 65.32 kg Sneha Agrawalleidy Other [facility] Other 09-06-2022 13:30-0400 Diastolic blood pressure 68 mm[Hg] nSeha Agrawalleidy Other [employer] Other 09-06-2022 13:30-0400 Systolic blood pressure 118 mm[Hg] Sneha Agrawalleidy Other [employer] Other 06-15-2022 10:45-0400 Body height 152.4 cm Vidya Pereyra Other [employer] Other 06-15-2022 10:45-0400 Body mass index (BMI) [Ratio] 27.92 kg/m2 Vidya Pereyra Other [employer] Other 06-15-2022 10:45-0400 Body temperature 97.9 [degF] Vidya Pereyra Other [facility] Other 06-15-2022 10:45-0400 Body weight 64.86 kg Vidya Pereyra Other [employer] Other 06-15-2022 10:45-0400 Diastolic blood pressure 68 mm[Hg] Vidya Pereyra Other [employer] Other 06-15-2022 10:45-0400 SaO2% (BldA) [Mass fraction] 96 % Vidya Pereyra Other [employer] Other 06-15-2022 10:45-0400 Systolic blood pressure 132 mm[Hg] Vidya Pereyra Other [employer] Other 04-10-2022 11:00-0500 Body height 152.4 cm Vidya Pereyra Other [employer] Other 04-10-2022 11:00-0500 Body mass index (BMI) [Ratio] 27.53 kg/m2 Vidya Pereyra Other [employer] Other 04-10-2022 11:00-0500 Body weight 63.96 kg Vidya Pereyra Other [employer] Other 04-10-2022 11:00-0500 Diastolic blood pressure 72 mm[Hg] Vidya Pereyra Other [employer] Other 04-10-2022 11:00-0500 SaO2% (BldA) [Mass fraction] 96 % Vidya Pereyra Other [employer] Other 04-10-2022 11:00-0500 Systolic blood pressure 138 mm[Hg] Vidya Pereyra Other [employer] Other Encounters Encounter Date Encounter Type Care Provider Facility Start: 03-02-2023 End: 03-02-2023 ambulatory EULA NIETO [facility] Start: 12-18-2022 End: 12-18-2022 [facility] Start: 12-11-2022 End: 12-11-2022 ambulatory Vidya Pereyra Other [employer] Other Start: 12-11-2022 Telephone encounter Vidya Pereyra [facility] Start: 12-05-2022 Office outpatient vi sit 15 minutes Vidya Pereyra [facility] Start: 12-05-2022 End: 12-05-2022 ambulatory Vidya Pereyra Facility:[facility] Start: 12-05-2022 End: 12-05-2022 ambulatory DO Joce Moreno Work Phone: [facility] Work Phone: Start: 12-05-2022 End: 12-05-2022 Departed Referred DO Joce Moreno Work Phone: [facility] [place] Work Phone: Start: 10-27-2022 End: 10-27-2022 ambulatory SAVANNA [facility] Start: 10-16-2022 End: 10-16-2022 ambulatory Vidya Pereyra Other [employer] Other Start: 10-16-2022 Office outpatient vi sit 15 minutes Vidya Pereyra [facility] Start: 09-15-2022 End: 09-15-2022 ambulatory Vidya Pereyra Other [employer] Other Start: 09-15-2022 Office outpatient vi sit 15 minutes Vidya Pereyra [facility] Start: 09-12-2022 End: 09-12-2022 ambulatory Vidya Pereyra Other [employer] Other Start: 09-12-2022 Telephone encounter Vidya Pereyra [facility] Start: 09-06-2022 End: 09-06-2022 ambulatory Sneha Jaramillo Other [employer] Other Start: 09-06-2022 Office outpatient vi sit 15 minutes Sneha Jaramillo [facility] Start: 06-15-2022 End: 06-15-2022 ambulatory Vidya Pereyra Other [employer] Other Start: 06-15-2022 Office outpatient vi sit 15 minutes Vidya Pereyra [facility] Start: 04-10-2022 End: 04-10-2022 ambulatory Vidya Pereyra Other [employer] Other Start: 04-10-2022 Office outpatient vi sit 15 minutes Vidya Pereyra [facility] Start: 01-31-2022 Adult health examination Sneha Ella Other [employer] Other Start: 01-28-2022 End: 01-28-[address] VIDYA PEREYRA Facility:[facility] Start: 12-07-2021 End: 12-08-[address] VIDYA PEREYRA Facility:[facility] Procedures Date Procedure Procedure Detail Performing Clinician Start: 09-14-2014 Screening mammography J tim Agrawalleidy Other Start: 11-14-2012 General examination of patient Sneha Agrawalleidy Other Screening for malign ant neoplasm of breast Sneha Agrawalleidy Other Plan of Treatment Date Care Activity Detail Author Start: 12-05-2022 Bacteria identified in Urine by Culture [facility] Immunizations Immunization Date Immunization Notes Care Provider Fa [facility] 11-12-2019 influenza virus vaccine, split virus (incl. purified surface antigen) Sneha Ella Other [employer] Other 12-04-2018 influenza virus vaccine, split virus (incl. purified surface antigen) Sneha Ella Other [employer] Other 10-10-2018 pneumococcal Conjuga te, unspecified formulation; Translations: [Need for prophylactic vaccination against Streptococcus pneumoniae (pneumococcus)] Sneha Jaramillo Other [employer] Other 10-10-2018 pneumococcal polysaccharide vaccine, 23 valent Sneha Jaramillo Other [employer] Other 11-22-2017 influenza virus vaccine, split virus (incl. purified surface antigen) Sneha Jaramillo Other [employer] Other 06-07-2017 pneumococcal conjuga te vaccine, 13 valent Sneha Ella Other [employer] Other 12-12-2016 influenza virus vaccine, split virus (incl. purified surface antigen) Sneha Ella Other [employer] Other Payers Date Payer Category Payer Self-pay [id number] 1957 Medicare [id number] 1957 Unknown [id number] 1940 Unknown [id number] 1940 Unknown [id number] [id number] Medicare Medicare Outpatient [id number] 3A [id number] Unknown [id number] [id number] Social History Date Type Detail Facility Sex Assigned At [employer] Other Start: 1940 Sex Assigned At Female F [facility] Clinical Notes 04-10-2022 to 03-02-2023 Note Date & Type Note Facility 03-02-2023 Note Hypertension is much improved in office and pt states b/p at home and review of b/p log shows HTN is well controlled at home Continue losartan 100 mg and norvasc 5 mg Repeat renal function after increased losartan dose remained stable [facility] 03-02-2023 Note [facility] CARDIOLOGY PROGR ESS NOTE HPI: Ana Mays is a 82 y.o. female here for HTN re-evaluation HPI Patient here for 3 mo follow up atypical chest pain, DEJESUS, hypertension, and valve disorder. Losartan was increased to 100mg daily at last apt in Dec [address] Ramos. She is doing well with medication increase. Still denies chest pain, SOB, and palpitations. Ana Mays is a 82 y.o. female with a past medical history of HTN. She reports b/p at home is always < 130/80 and well controlled. Lexiscan stress test and echocardiogram were performed. Lexiscan stress test with was without evidence of ischemia. Echocardiogram demonstrated mild valvular abnormalities, but otherwise, was unremarkable. Review of Systems Musculoskeletal: Positive for muscle weakness. Neurological: Positive for headaches. All other systems reviewed and are negative Visit Vitals BP 149/72 (BP Location: Left arm, Patient Position: Sitting) Pulse 57 Ht 1.549 m (5' 1 ) Wt 62.6 kg (138 lb) SpO2 99% BMI 26.07 kg/m??? Smoking Status Never BSA 1.64 m??? Allergies Allergen Reactions Bactrim [Sulfamethoxazole-Trimethoprim] Sulfa (Sulfonamide Antibiotics) Medications: Current Outpatient Medications on File Prior to Visit Medication Sig Dispense Refill amLODIPine (Norvasc) 5 mg tablet Take 5 mg by mouth in the morning. losartan (Cozaar) 100 mg tablet Take 1 tablet (100 mg) by mouth once daily as directed. 90 tablet 3 omeprazole (PriLOSEC) [address] capsule Take 20 mg by mouth in the morning. simvastatin (Zocor) 20 mg tablet Take 20 mg by mouth at bedtime. [DISCONTINUED] losartan (Cozaar) 50 mg tablet Take 1 tablet (50 mg) by mouth once daily as directed. 90 tablet 3 No current facility-administered medications on file prior to visit. Physical Exam: Constitutional: Appearance: Normal appearance. Without apparent distress HENT: Head: Normocephalic and atraumatic. Nose: Nose normal. Mouth/Throat: Mouth: Mucous membranes are moist. Eyes: Extraocular Movements: Extraocular movements intact. Conjunctiva/sclera: Conjunctivae normal. Neck: Vascular: No JVD. Cardiovascular: Rate and Rhythm: Normal rate and regular rhythm. Pulses: Dorsalis pedis pulses are 3 on the right side and 3on the left side. Posterior tibial pulses are 3 on the right side and 3 on the left side. Heart sounds: Normal heart sounds, S1 normal and S2 normal. Pulmonary: Effort: Pulmonary effort is normal. Breath sounds: Normal breath sounds. Abdominal: General: Bowel sounds are normal. Palpations: Abdomen is soft. Musculoskeletal: General: Normal range of motion. Cervical back: Normal range of motion. Right lower leg: No edema. Left lower leg: No edema. Skin: General: Skin is warm and dry. Capillary Refill: Capillary refill takes less than 2 seconds. Neurological: General: No focal deficit present. Mental Status: She is alert and oriented to person, place, and time. Psychiatric: Mood and Affect: Mood normal. Behavior: Behavior normal. Thought Content: Thought content normal. Judgment: Judgment normal. Labs: 01/01/23 renal function normal, GFR normal, K+ normal 09/12/22 CBC normal BUN 10, CR 0.75, GFR > 60 - normal Last lab values have been reviewed CV Testing: No echocardiogram results found for the past 12 months Assessment/Plan: Primary hypertension Hypertension is much improved in office and pt states b/p at home and review of b/p log shows HTN is well controlled at home Continue losartan 100 mg and norvasc 5 mg Repeat renal function after increased losartan dose remained stable Continue meds as prescribed, RTC 3-6 months [facility] 03-02-2023 Note Patient here for 3 m o follow up atypical chest pain, DEJESUS, hypertension, and valve disorder. Losartan was increased to 100mg daily at last apt in Dec [address] Ramos. She is doing well with medication increase. Still denies chest pain, SOB, and palpitations. Review of Systems Musculoskeletal: Positive for muscle weakness. Neurological: Positive for headaches. All other systems reviewed and are negative. [facility] 12-18-2022 Note Cardiology Clinic No te Chief Complaint: chest pain HPI: Ana Mays is a 82 y.o. female with a past medical history of HTN referred to Cardiology clinic for evaluation of single episode of chest pain. Given her symptoms, Lexiscan stress test and echocardiogram were performed. Lexiscan stress test with was without evidence of ischemia. Echocardiogram demonstrated mild valvular abnormalities, but otherwise, was unremarkable. He presents today for follow-up. Patient adamantly denies any cardiac complaints or concerns. Patient denies any chest pain or shortness of breath. Patient denies any lower extremity edema, orthopnea, or proximal nocturnal dyspnea. No near-syncope or syncope. No dizziness or lightheadedness. She denies any recurrence of chest pain. She does state that her Bp has been elevated at home, in the 140'-160's systolic. Cardiology ROS: GENERAL: Denies fever, chills, night sweats, weight loss. HEENT: Denies changes in vision, photophobia, changes in hearing, epistaxis, oral bleeding. CARDIOVASCULAR: As per HPI RESPIRATORY: Denies SOB, coughing, wheezing GI: Denies abdominal pain, nausea/vomiting, heartburn, melena/hematochezia. RENAL: Denies dysuria, hematuria, flank pain. MSK: Denies muscle weakness/pain, arthralgias/joint pain. NEUROLOGIC: Denies LOC, weakness, numbness, headaches. SKIN: Denies abnormal rashes or bleeding. PSYCH: Denies significant anxiety, depression, sleep disturbances. Past Medical History She has a past medical history of Dizziness, GERD (gastroesophageal reflux disease), Hyperlipidemia, and Hypertension. Surgical History She has a past surgical history that includes Tubal ligation and Kyphosis surgery. Social History She reports that she has never smoked. She has never used smokeless tobacco. She reports that she does not currently use alcohol. No history on file for drug use. Family History Family History Problem Relation Name Age of Onset Coronary artery disease Father Cancer Daughter Medications Current Outpatient Medications on File Prior to Visit Medication Sig Dispense Refill amLODIPine (Norvasc) 5 mg tablet Take 5 mg by mouth in the morning. losartan (Cozaar) 50 mg tablet Take 1 tablet (50 mg) by mouth once daily as directed. 90 tablet 3 omeprazole (PriLOSEC) [address] capsule Take 20 mg by mouth in the morning. simvastatin (Zocor) 20 mg tablet Take 20 mg by mouth at bedtime. No current facility-administered medications on file prior to visit. Allergies Bactrim [sulfamethoxazole-trimethoprim] and Sulfa (sulfonamide antibiotics) Physical Exam VITAL SIGNS: BP 165/71 (BP Location: Left arm, Patient Position: Sitting) Pulse 63 Ht 1.549 m (5' 1 ) Wt 65.8 kg (145 lb) SpO2 98% BMI 27.40 kg/m??? Constitutional: Well developed, Well nourished, No acute distress, Non-toxic appearance. HENT: Normocephalic, Atraumatic, Bilateral external ears have normal appearance, Nose appears normal, nares are patent. Eyes: PERRLA, EOMI, Conjunctiva normal, No discharge. Neck: Normal range of motion, No tenderness, Supple, No stridor. No cervical lymphadenopathy noted. Cardiovascular: Normal heart rate, Normal rhythm, No murmurs, No rubs, No gallops. Thorax & Lungs: Normal breath sounds, No respiratory distress, No wheezing, No chest tenderness to palpation. Abdomen: Bowel sounds normal, Soft, Nontender, No masses, No pulsatile masses. Skin: Warm, Dry, No erythema, No rash. Back: No tenderness, No CVA tenderness. Extremities: Intact distal pulses, No edema, No tenderness, No cyanosis, No clubbing. Musculoskeletal: Grossly normal strength in extremities Neurologic: Alert & oriented x 3, no gross focal neurological deficits Psychiatric: Affect normal, Judgment normal, Mood normal. EKG results: No results found for this or any previous visit (from the past 4464 hour(s)). Echo results: No echocardiogram results found for the past 12 months Radiology: No image results found. Impression: -Atypical chest pain, low risk lexiscan stress test -Dyspnea on exertion, echo and stress test unremarkable. This has resolved. 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 All questions were answered. Patient voices understanding and is agreeable with current plan. -Patient was educated on red flag symptoms. Strict return precautions were provided. Patient verbalizes understanding -Follow-up in cardiology clinic in 3 months, or sooner as needed Savanna Ramos MD Interventional Cardiology [facility] 12-18-2022 Note Patient here for fol low up echo and stress test. Losartan was increased to 50mg in Oct 2022 at last apt. She states BP has been running around 139-140's systolic. She says dizziness and palpitations have resolved. Denies chest pain and SOB. Review of Systems Musculoskeletal: Positive for muscle weakness. Neurological: Positive for headaches. All other systems reviewed and are negative. [facility] 12-05-2022 Evaluation note Encounter Date Diagnosis Assessment Notes Nov, Dysuria (ICD-10 - R30.0) Culture pending. Treat empirically in meantime. Improve hydration. [employer] Other 09-22-2023 NoteNew patient here to establish care. Ref from Dr. Pereyra for hypertension and dizziness. She was seen in [facility] ED in Sep [address] Pereyra ordered stress test but she has declined for now. She denies recurrent chest pain and SOB. Dizziness is improving she says. Does feel occasional palpitations. Review of Systems Cardiovascular: Positive for palpitations. Musculoskeletal: Positive for muscle weakness. Neurological: Positive for dizziness, headaches and light-headedness. All other systems reviewed and are negative.[facility] 10-27-2022 NoteCardiology Clinic Note Chief Complaint: chest pain HPI: Ana Mays is a 81 y.o. female with a past medical history of HTN referred to Cardiology clinic for evaluation of chest pain. Patient States that she had a single episode of chest pain that radiated from her back towards her right flank area. She denies any substernal chest pain. No recurrence of chest pain. This single episode occurred at rest. She denies any recurrence. She denies any lower extremity edema, orthopnea, paroxysmal nocturnal dyspnea. She does endorse some shortness of breath with exertion, but states that this has been ongoing. No additional complaints or concerns at the present time. Patient denies any previous history of CVA, PVD, DM, HTN, Depressed LVEF, and CAD. Cardiology ROS: GENERAL: Denies fever, chills, night sweats, weight loss. HEENT: Denies changes in vision, photophobia, changes in hearing, epistaxis, oral bleeding. CARDIOVASCULAR: As per HPI RESPIRATORY: Denies SOB, coughing, wheezing GI: Denies abdominal pain, nausea/vomiting, heartburn, melena/hematochezia. RENAL: Denies dysuria, hematuria, flank pain. MSK: Denies muscle weakness/pain, arthralgias/joint pain. NEUROLOGIC: Denies LOC, weakness, numbness, headaches. SKIN: Denies abnormal rashes or bleeding. PSYCH: Denies significant anxiety, depression, sleep disturbances. Past Medical History She has a past medical history of Dizziness, GERD (gastroesophageal reflux disease), Hyperlipidemia, and Hypertension. Surgical History She has a past surgical history that includes Tubal ligation and Kyphosis surgery. Social History She reports that she has never smoked. She has never used smokeless tobacco. She reports that she does not currently use alcohol. No history on file for drug use. Family History Family History Problem Relation Name Age of Onset Coronary artery disease Father Cancer Daughter Medications Current Outpatient Medications on File Prior to Visit Medication Sig Dispense Refill amLODIPine (Norvasc) 5 mg tablet Take 5 mg by mouth in the morning. losartan (Cozaar) 25 mg tablet 25 mg 1 (one) time each day. omeprazole (PriLOSEC) [address] capsule Take 20 mg by mouth in the morning. simvastatin (Zocor) 20 mg tablet No current facility-administered medications on file prior to visit. Allergies Bactrim [sulfamethoxazole-trimethoprim] and Sulfa (sulfonamide antibiotics) Physical Exam VITAL SIGNS: BP 162/85 (BP Location: Left arm, Patient Position: Sitting) Pulse 61 Ht 1.549 m (5' 1 ) Wt 65.3 kg (144 lb) SpO2 99% BMI 27.21 kg/m??? Constitutional: Well developed, Well nourished, No acute distress, Non-toxic appearance. HENT: Normocephalic, Atraumatic, Bilateral external ears have normal appearance, Nose appears normal, nares are patent. Eyes: PERRLA, EOMI, Conjunctiva normal, No discharge. Neck: Normal range of motion, No tenderness, Supple, No stridor. No cervical lymphadenopathy noted. Cardiovascular: Normal heart rate, Normal rhythm, No murmurs, No rubs, No gallops. Thorax & Lungs: Normal breath sounds, No respiratory distress, No wheezing, No chest tenderness to palpation. Abdomen: Bowel sounds normal, Soft, Nontender, No masses, No pulsatile masses. Skin: Warm, Dry, No erythema, No rash. Back: No tenderness, No CVA tenderness. Extremities: Intact distal pulses, No edema, No tenderness, No cyanosis, No clubbing. Musculoskeletal: Grossly normal strength in extremities Neurologic: Alert & oriented x 3, no gross focal neurological deficits Psychiatric: Affect normal, Judgment normal, Mood normal. EKG results: No results found for this or any previous visit (from the past 4464 hour(s)). Echo results: No echocardiogram results found for the past 12 months Radiology: No image results found. Impression: -Atypical chest pain -Dyspnea on exertion -Hypertension, poorly controlled Plan: -Given episode of chest pain and dyspnea on exertion, will obtain Lexiscan myocardial perfusion scan to assess for ischemia -We will obtain echocardiogram to assess LVEF, wall motion, and valvular function -We will increase losartan to 50 mg daily for better control blood pressure -Optimize medical management -Aggressive risk factor modification -Plan of care discussed with patient. All questions were answered. Patient voices understanding and is agreeable with current plan. -Patient was educated on red flag symptoms. Strict return precautions were provided. Patient verbalizes understanding -Follow-up in cardiology clinic in 6 weeks, or sooner as needed Thank you for allowing us to participate in the care of your patient. Please do not hesitate to contact cardiology with any questions or concerns. Savanna Ramos MD Interventional Cardiology [facility]09-11-2023 Evaluation note* Encounter Date Diagnosis Assessment Notes Treatment Notes Treatment Clinical Notes Oct, Essential (primary) hypertension (ICD-10 - I10) 158/64 on recheck. est w Dr. Garcia. She agrees to referral as her bps are labile. She declines stress test that was ordered in September - denies further chest pain from the 09/12 ER visit. Oct, Lightheaded (ICD-10 - R42) Discussed differential - notes visual issues (cataracts, glaucoma, ) and labile bps at home and at office. Will proceed with the referral to Cardiology. [employer] Other 08-11-2023 Evaluation note* Encounter Date Diagnosis Assessment Notes Treatment Notes Treatment Clinical Notes Sep, Essential (primary) hypertension (ICD-10 - I10) Add losartan to the Norvasc for improved BP control. Limit salt and walk daily as able. Apr, Chest pain, unspecified (ICD-10 - R07.9) Chest pain Discussed symptoms. Pt agrees to stress test. Will arrange at the hospital to r/o CAD. [employer] Other 08-02-2023 Evaluation note* Encounter Date Diagnosis Assessment Notes Treatment Notes Treatment Clinical Notes Sep, Vertigo (ICD-10 - R42) Discussed diagnosis with patient and instructed to take medications as prescribed. Antivert 12.5 mg po Q8 hours prn. Do not lie flat on your back. Prop yourself up slightly and keep eyes open - this may reduce the spinning feeling. Move slowly so that you do not fall. Do not drive while you are having vertigo. Seek immediate evaluation with any new or worsening SX, otherwise follow up with PCP. Continue to monitor blood pressure and call next week with updated numbers [employer] Other 05-11-2023 Evaluation note* Encounter Date Diagnosis Assessment Notes Treatment Notes Treatment Clinical Notes June, Bronchitis (ICD-10 - J40) Encouraged her to continue mucinex, rest, fluids. Call or ER if not improving. [employer] Other 03-06-2023 Evaluation note* Encounter Date Diagnosis Assessment Notes Treatment Notes Treatment Clinical Notes Apr, Essential (primary) hypertension (ICD-10 - I10) Blood pressure remains well controlled at this time. Denies cardiac symptoms. Shows no signs or symptoms or poor control. Patient to continue with above medication and we will continue to monitor. Advised to pay attention to body and symptoms. Any developing patterns. Stay well hydrated. [employer] Other Evaluation noteNo InformationNort [employer] Other Evaluation noteNo assessment information available [facility] Work Phone: History general Narrative - Reported* Type Description Date Medical History Esophageal reflux Medical History high cholesterol Surgical History tubal ligation Hospitalization History see above [employer] Other Summary Purpose Family History No Family History Records FoundNo Family History Records FoundNo Family History Records Found Advance Directives No Advanced Directives Records Found Advance Directive Response Recorded Date/ Time Advance Directives No January 8:55pm Reason for Referral Reason *FU 10/23 Dr. Janki jerez at [facility]3]. - Last OV and today, [facility] on 09/12 - lightheadedness, uncontrolled HTN Diagnosis 1 Essential (primary) hypertension (I10) Referral Organization [facility] cassia Referring Provider First Name Vidya Referring Provider Last Name Hafsa Referring Provider Specialty Family [facility] cine Referred Organization [facility] Referred Provider Alcon Cormier V Referred Address [address] [place], [place],[address] Referred Provider Specialty Cardiovascul ar Disease Referral Priority Routine General Notes Veronica Mahan 11:39:32 AM >received today, attachments made, notes locked, referral faxed Clinical Notes P: [phone] F: [id number] Additional Source Comments INFORMATION SOURCE (unrecogn ized section and content) DATE CREATED AUTHOR 02/01/2022 [facility] DATE CREATED AUTHOR AUTHOR'S ORGANIZ ATION 12/11/2022 [facility] DATE CREATED AUTHOR AUTHOR'S ORGANIZ ATION 03/03/2023 [facility] REASON FOR VISIT (unrecogniz ed section and content) BLOOD PRESSURESore Throat- C OVID NegativeBPER Follow UpTBHBP/ Stress Test Discussionuti, pressure on bladderurine culture Care Teams (unrecognized sec tion and content) Team Status: Active Member Role Status Dates Joce Moreno DO Primary Care Provider Active Team Status: Inactive Member Role Status Dates Joce Moreno DO Primary Care Provider Active Vidya Pereyra MD Attending Provider Active Goals (unrecognized section and content) Goals may be documented in a n alternate section FOR RECORDS PERTAINING TO PATIENTS WHO ARE OR HAVE BEEN ENROLLED IN A CHEMICAL DEPENDENCY/SUBSTANCEABUSE PROGRAM, SOME INFORMATION MAY BE OMITTED. This clinical summary was aggregated from multiple sources. Caution should be exercised in using it in the provision of clinical care. This summary normalizes information from multiple sources, and as a consequence, information in this document may materially change the coding, format and clinical context of patient data. In addition, data may be omitted in some cases. CLINICAL DECISIONS SHOULD BE BASED ON THE PRIMARY CLINICAL RECORDS. [facility] [employer]. provides no warranty or guarantee of the accuracy or completeness of information in this document.
== END 2023-04-06 10:52 | disposition home or self-care (01) ==
LOC: MAMMO 10:51
PROVIDERS: PCP Family Medicine; Visit Provider Family Medicine
DX: Z12.31 Encounter for screening mammogram for malignant neoplasm of breast (principal)
CPT/HCPCS: 77063; 77067

== ENCOUNTER 2023-08-02 10:35 | Outpatient (OUT) | payer MEDICARE, SELFPAY ==
--- NOTE | 2023-08-02 10:43 | US_ITS ---
The [address] [address] Patient Name: BETY JOHNSON MRN: [id number] date: 1940 Sex: F Assigned Patient Location: [place] Current Patient Location: [place] Accession/Order Number: [id number] Exam Date: 08/02/2023 10:45 Report Date: 08/02/2023 11:46 At the request of: ALEXIS PEREYRA Procedure: US pelvis EXAMINATION: US pelvis HISTORY: r10.30, abdominal pain COMPARISON: No relevant comparison available. FINDINGS: Transabdominal images The uterus is poorly visualized, grossly normal in size, contour and echotexture measuring 4.6 x 1.9 x 4 cm. 5 mm echogenic focus in the lower uterine segment likely a calcification, nonspecific. The endometrium is not clearly visualized The ovaries are not seen US/US pelvis IMPRESSION: Very limited transabdominal images demonstrating a 5 mm nonspecific myometrial calcification Nonvisualization of the ovaries and endometrium Electronically authenticated by: VINICIUS DELONG Date: 08/02/2023 11:46
--- OUTSIDE RECORDS SUMMARY | 2023-08-02 10:56 | XMS_ITS | CCD ---
Author Organization [facility] Care Team Providers Care Budget Counselor Name Role Phone DR VIDYA PEREYRA Primary Care Unavailable GABI WARD Admitting Unavailable GABI WARD Attending Unavailable GABI WARD Consulting Unavailable ALINA MATOS Consulting UnavailVERNON Mariscal Consulting Unavailable HAFSA, DR VIDYA Mello Admitting Unavailable HAFSA, DR VIDYA Mello Attending Unavailable HAFSA, DR VIDYA Mello Primary Care Unavailable WEST, DR VINICIUS Gonzalez Consulting Unavailable HAFSA, DR VIDYA Mello Consulting Unavailable Vidya Pereyra Unavailable Sneha Jaramillo Unavailable DO Joce Moreno Primary Care Provider MD Vidya Pereyra Attending Provider EULA NIETO Attending Unavailable SAVANNA RAMOS Attending Unavailable SAVANNA RAMOS Attending Unavailable SAVANNA RAMOS Attending Unavailable DO Joce Moreno Primary Care Provider MD Vidya Pereyra Attending Provider Vidya Pereyra Attending Unavailable Vidya Pereyra Admitting Unavailable Joce Moreno Primary Care Unavailable Joce Moreno Primary Care Unavailable Vidya Pereyra Attending Unavailable Vidya Pereyra Admitting Unavailable Allergies Allergy Classification Reported Allergen(s) Allergy Type Date of Onset Reaction(s) Facility (1 source) Sulfonamides (Antibiotic) Drug allergy (disorder) [facility] Repository (8 sources) Sulfacetamide / Sulfur Drug Allergy Unknown [facility] Other (6 sources) Sulfamethoxazole / Trimethoprim Drug Allergy 09-01-19 15 Unknown [facility] Other (1 source) patient allergy list reviewed by nurse or physicia Propensity to adverse reactions 04-21-19 15 Comment:Done [facility] Other (1 source) Allergies Reconciled Propensity to adverse reactions Unknown [facility] Other (1 source) Sulfamethoxazole / Trimethoprim; Translations: [SULFAMETHOXAZOLE-T RIMETHOPRIM] Drug Allergy 10-28-19 [facility] Repository (1 source) Sulfonamides (Antibiotic); Translations: [SULFA (SULFONAMIDE ANTIBIOTICS)] Propensity to adverse reactions to drug (disorder) 10-28-19 [facility] Repository (3 sources) Sulfacetamide; Translations: [sulfacetamide] Drug Allergy 07-23-19 [facility] (3 sources) Sulfamethoxazole; Translations: [sulfamethoxazole] Drug Allergy 07-23-19 [facility] (3 sources) Sulfur; Translations: [sulfur] Drug Allergy 07-23-19 [facility] (3 sources) Trimethoprim; Translations: [trimethoprim] Drug Allergy 07-23-19 [facility] Medications Current Medications Medication Drug Class(es) Dates Sig (Normalized) Sig (Original) amLODIPine 5 mg oral tablet (10 sources) Dihydropyridine Calcium Channel Nhung Start: 07-23-2023 take 1 tablet by mouth once daily Amlodipine Active 1 TAB PO Daily July 23, 2023 12:00am FreeTextSig: TAKE 1 TABLET BY MOUTH EVERY DAY FOR 90 DAYS; Note: Source Status: Taking; Refills: 1; Qty: 90 Tablet; Provider: Hafsa Mello amLODIPine Besyl ate 5 MG TAKE 1 TABLET BY MOUTH [...] Active losartan potassium 50 mg oral tablet (6 sources) Angiotensin 2 Receptor Nhung Start: 07-23-2023 take 1 tablet by mouth once daily Losartan Active 100 MG PO Daily July 23, 2023 12:00am FreeTextSi tablet once a day; Note: Source Status: Taking; Refills: 2; Qty: 30 Tablet; Provider: Hafsa Dasilva ( ) take 1 tablet by tiana th every twenty-four hours Losartan Potassium 50 MG [...] 8 hrs for 10 days Sep, Active nitrofurantoin, macrocrystals 25 mg / nitrofurantoin, monohydrate 75 mg oral capsule (2 sources) Nitrofuran Antibacterial Start: 07-23-2023 take 1 capsule by mouth twice daily at mealtime Nitrofurantoin Monohyd/M-Cryst (Macrobid) 100 mg capsule Active 100 MG PO Twice daily July 23, 2023 12:00am must administer with a meal/food omeprazole 20 mg delayed release oral capsule (12 sources) Proton Pump Inhibitor Start: 04-27-2023 End: 04-27-2023 take 20 mg by mouth once daily Omeprazole Active 20 MG PO Daily April 27, 2023 2:04pm take 1 capsule by mouth once bhupinder ly Omeprazole 20 MG Take 1 capsule by mouth once daily for 90 Active take 1 tablet by mouth once manny y Omeprazole 20 MG 1 tablet 30 minutes before morning meal Orally Once a day Active simvastatin 20 mg oral tablet (10 sources) HMG-CoA Reductase Inhibitor Start: 07-23-2023 take 1 tablet by mouth once daily in the evening Simvastatin Active 20 MG PO Daily July 23, 2023 12:00am FreeTextSi tablet in the evening Orally Once a day; Note: Source Status: Taking; Provider: Hafsa Dasilva ( ) take 1 tablet by tiana th every twenty-four hours Simvastatin 20 MG 1 tablet in the evenin g Orally Once a day Active Completed/Discontinued Medications Medication Drug Class(es) Dates Sig (Normalized) Sig (Original) acetaminophen 325 mg / HYDROcodone bitartrate 5 mg oral tablet (1 source) Opioid Agonist take 1 tablet by every six hours HYDROcodone-Acetami nophen 5-325 MG 1 tablet as needed Orally every 6 hrs Not-Taking Problems Active Problems Problem Classification Problem Date Documented Date Episodic/Chronic Abdominal pain (5 sources) Abdominal pain; Translations: [Unspecified abdominal pain] Onset: 07-23-2023 07-23-2023 Episodic Chronic obstructive pulmonary disease and bronchiectasis (1 [...] hypertension; Translations: [Essential hypertension] Onset: 02-01-2022 Chronic Headache; including migraine (4 sources) Headache; including [...] Vaccination given; Translations: [Encounter for immunization] Episodic Osteoarthritis (3 sources) Osteoarthritis; Translations: [Polyosteoarthritis, unspecified] Onset: 04-27-2014 Chronic Other aftercare (1 source) Other buttermaker (current) drug therapy; 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] Onset: 02-01-2022 Episodic Other [...] Translations: [Acute bronchitis, unspecified] Onset: 04-28-2015 Episodic Genitourinary symptoms and ill-defined conditions (5 sources) Dysuria; Translations: [Dysuria] Onset: 10-12-2016 Episodic Headache; including migraine (1 source) Headache; Translations: [Headache] Onset: 05-29-2017 Episodic Inflammatory diseases of female pelvic organs (3 sources) Acute vaginitis; Translations: [Acute vaginitis] Onset: 09-14-2014 Episodic Nonspecific chest pain (11 sources) Chest pain; Translations: [Chest pain, unspecified] Onset: 04-20-2014 Episodic Other gastrointestinal disorders (3 sources) Heartburn; [...] Test Name Value Interpretation Reference Range Facility Urine Cultureon 07-23-2023 Bacteria identified Cx Nom (U) 50,000 colonies/ml mixed bacterial skin contaminants 2 Days PERFORMED BY: [address] [place] [address] PATHOLOGIST CERAMIC ENGINEERING PROFESSOR WILFRED Scott [facility] Comment on above: Performed By: #### C UU #### [address] Office Visiton 03-02-2023 Follow-up visit [id number] Ana Mays 1940 Date Provider Department Center 03/02/2023 EULA MILES LYNDA Osorio [facility] Family History Problem Relation Age of Onset Coronary artery disease Father Cancer Daughter Family Status - Relation Status Age at Father Daughter Other Level of Service:00240 AL OFFICE/OUTPATIENT ESTABLISHED LOW MDM 20 MIN Normal [facility] Office Visiton 12-18-2022 Follow-up visit [id number] Ana Mays 1940 Date Provider Department [facility] Jo [facility] Family History Problem Relation Age of Onset Coronary artery disease Father Cancer Daughter Family Status - Relation Status Age at Father Daughter Other Level of Service:36471 AL OFFICE/OUTPATIENT ESTABLISHED MOD MDM 30-39 MIN Normal [facility] Urine Cultureon 12-05-2022 Bacteria identified Cx Nom (U) Reason for Exam Dysuria Urine Reason for Exam: Dysuria : Urine 20,000 colonies/ml mixed bacterial skin contaminants 2 Days PERFORMED BY: [place] [address] PATHOLOGIST CERAMIC ENGINEERING PROFESSOR WILFRED SALAS M.D. Normal [facility] Comment on above: Performed By: #### C UU #### [address] Office Visiton 10-27-2022 Follow-up visit [id number] Ana Mays 1940 Provider Department [facility] Family History Problem Relation Age of Onset Coronary artery disease Father Cancer Daughter Family Status - Relation Status Age at Father Daughter Other Level of Service:28503 AL OFFICE/OUTPATIENT NEW MODERATE MDM 45-59 MINUTES Normal [facility] CARDIAC CRIS ADMITon 022 CK [Catalytic activity/Vol] 58 U/L Normal 26-192 [facility] Comment on above: Performed By: #### C MADM #### [facility] [address] [address] [address] Lamberto Hamm CK.MB [Mass/Vol] 1.23 ng/mL Normal <=3.60 [facility] Comment on above: Performed By: #### C MADM #### [facility] [address] [place] [address] Dr. Lamberto Hamm HSTROP 10.2 pg/mL Normal 4.0-51.3 [facility] Comment on above: Result Comment: CUT- OFF POINTS HAVE BEEN ESTABLISHED BASED ON THE FOURTH UNIVERSAL DEFINITIONS OF MYOCARDIAL INFARCTION. THE UPPER REFERENCE LIMIT (URL) OF TROPONIN, DEFINED THE 99TH PERCENTILE OF cTnI DISTRIBUTION IN A REFERENCE POPULATION, HAS BEEN CONFIRMED THE DECISION THRESHOLD FOR SD DIAGNOSIS. Performed By: #### C MADM #### [facility] [address] [place] [address] Dr. Lamberto Hamm WILBUR 59 ng/mL Normal 9-82 [facility] Comment on above: Performed By: #### C MADM #### [facility] [address] [place] [address] Dr. Lamberto Hamm CBC AUTO DIFFon 01-28-2022 BASO # 0.0 103/ul Normal 0.0-0.1 [facility] Comment on above: Performed By: #### C BC #### [facility] [address] [place] [address] Dr. Lamberto Hamm Basophils/100 WBC (Bld) 0.5 % Normal 0.2-2.0 [facility] Comment on above: Performed By: #### C BC #### [facility] [address] [place] [address] Dr. Lamberto Hamm EO # 0.2 103/ul Normal 0.0-0.7 [facility] Comment on above: Performed By: #### C BC #### [facility] [address] [place] [address] Dr. Lamberto Hamm Eosinophils/100 WBC (Bld) 3.2 % Normal 0.9-7.0 [facility] Comment on above: Performed By: #### C BC #### [facility] [address] [place] [address] Dr. Lamberto Hamm Erythrocyte distribution width (RBC) [Ratio] 12.4 % Normal 11.0-15.0 [facility] Comment on above: Performed By: #### C BC #### [facility] [address] [place] [address] Dr. Lamberto Hamm Hematocrit (Bld) [Volume fraction] 40.3 % Normal 36.0-48.0 [facility] Comment on above: Performed By: #### C BC #### [facility] [address] [place] [address] Dr. Lamberto Hamm Hemoglobin (Bld) [Mass/Vol] 13.9 g/dL Normal 12.0-16.0 [facility] Comment on above: Performed By: #### C BC #### [facility] [address] [place] [address] Dr. Lamberto Hamm IG # 0.01 10e3/ul Normal 0.00-0.03 [facility] Comment on above: Performed By: #### C BC #### [facility] [address] [place] [address] Dr. Lamberto Hamm IG % 0.2 % Normal 0.0-0.5 [facility] Comment on above: Performed By: #### C BC #### [facility] [address] [place] [address] Dr. Lamberto Hamm LYMPH # 1.0 103/ul Critically low 1.2-3.8 [facility] Comment on above: Performed By: #### C BC #### [facility] [address] [place] [address] Dr. Lamberto Hamm Lymphocytes/100 WBC (Bld) 17.4 % Critically low 20.5-60.0 [facility] Comment on above: Performed By: #### C BC #### [facility] [address] [place] [address] Dr. Lamberto Hamm MANUAL DIFF REQ NO Normal [facility] Comment on above: Performed By: #### C BC #### [facility] [address] [place] [address] Dr. Lamberto Hamm MCH (RBC) [Entitic mass] 30.8 pg Normal 26.7-34.0 [facility] Comment on above: Performed By: #### C BC #### [facility] [id number] Lamberto Hamm MCHC (RBC) [Mass/Vol] 34.5 g/dL Normal 29.9-35.2 [facility] Comment on above: Performed By: #### C BC #### [facility] [address] [address] [address] Lamberto Hamm MCV (RBC) [Entitic vol] 89.2 fL Normal 81.0-99.0 [facility] Comment on above: Performed By: #### C BC #### [facility] [address] [place] [address] Dr. Lamberto Hamm MONO # 0.5 103/ul Normal 0.3-0.8 [facility] Comment on above: Performed By: #### C BC #### [facility] [address] [place] [address] Dr. Lamberto Hamm Monocytes/100 WBC (Bld) 7.7 % Normal 1.7-12.0 [facility] Comment on above: Performed By: #### C BC #### [facility] [address] [place] [address] Dr. Lamberto Hamm NEUT # 4.2 103/ul Normal 1.4-6.5 [facility] Comment on above: Performed By: #### C BC #### [facility] [address] [place] [address] Dr. Lamberto Hamm Neutrophils/100 WBC (Bld) 71.0 % Normal 43.0-75.0 [facility] Comment on above: Performed By: #### C BC #### [facility] [address] [place] [address] Dr. Lamberto Hamm Platelet mean volume (Bld) [Entitic vol] 9.5 fL Normal 9.5-13.5 [facility] Comment on above: Performed By: #### C BC #### [facility] [address] [place] [address] Dr. Lamberto Hamm PLT 284 103/ul Normal 150-450 [facility] Comment on above: Performed By: #### C BC #### [facility] [address] [address] [address] Lamberto Hamm RBC 4.52 106/ul Normal 4.20-5.40 [facility] Comment on above: Performed By: #### C BC #### [facility] [address] [address] [address] Lamberto Hamm WBC 5.9 103/ul Normal 4.0-11.0 [facility] Comment on above: Performed By: #### C BC #### [facility] [address] [address] [address] HEAD WO CONon [...] ALINA MATOS Date: 2022-01-28 09:32 Normal [facility] PROF 14(COMP METB)on 022 Albumin [Mass/Vol] 3.6 g/dL Normal 3.4-5.0 [facility] Comment on above: Performed By: #### C MP #### [facility] [address] [place] [address] Dr. Lamberto Hamm Albumin/Globulin [Mass ratio] 1.0 {ratio} Normal [facility] Comment on above: Performed By: #### C MP #### [facility] [address] [place] [address] Dr. Lamberto Hamm ALP [Catalytic activity/Vol] 84 U/L Normal 46-116 [facility] Comment on above: Performed By: #### C MP #### [facility] [address] [address] [address] Lamberto Hamm ALT [Catalytic activity/Vol] 23 U/L Normal 14-59 [facility] Comment on above: Performed By: #### C MP #### [facility] [address] [place] [address] Dr. Lamberto Hamm Anion gap [Moles/Vol] 15.1 mmol/L Normal [facility] Comment on above: Performed By: #### C MP #### [facility] [address] [place] [address] Dr. Lamberto Hamm AST [Catalytic activity/Vol] 20 U/L Normal 15-37 [facility] Comment on above: Performed By: #### C MP #### [facility] [address] [place] [address] Dr. Lamberto Hamm Bilirubin [Mass/Vol] 0.5 mg/dL Normal 0.2-1.0 [facility] Comment on above: Performed By: #### C MP #### [facility] [address] [place] [address] Dr. Lamberto Hamm Calcium [Mass/Vol] 9.0 mg/dL Normal 8.5-10.1 [facility] Comment on above: Performed By: #### C MP #### [facility] [address] [address] [address] Lamberto Hamm Chloride [Moles/Vol] 102 mmol/L Normal 98-107 [facility] Comment on above: Performed By: #### C MP #### [facility] [address] [address] [address] Lamberto Hamm CO2 [Moles/Vol] 26.8 mmol/L Normal 21.0-32.0 [facility] Comment on above: Performed By: #### C MP #### [facility] [address] [place] [address] Dr. Lamberto Hamm Creatinine [Mass/Vol] 0.66 mg/dL Normal 0.55-1.02 [facility] Comment on above: Performed By: #### C MP #### [facility] [address] [address] [address] Lamberto Hamm EGFR-AF GIBRALTARIAN >60 Normal >=60 [facility] Comment on above: Performed By: #### C MP #### [facility] [address] [address] [address] Lamberto Hamm EGFR-NON AF GIBRALTARIAN >60 Normal >=60 [facility] Comment on above: Performed By: #### C MP #### [facility] [address] [address] [address] Lamberto Hamm Globulin (S) [Mass/Vol] 3.6 g/dL Normal [facility] Comment on above: Performed By: #### C MP #### [facility] [address] [address] [address] Lamberto Hamm Glucose [Mass/Vol] 103 mg/dL Normal 74-106 [facility] Comment on above: Performed By: #### C MP #### [facility] [address] [address] [address] Lamberto Hamm Potassium [Moles/Vol] 3.9 mmol/L Normal 3.5-5.1 [facility] Comment on above: Performed By: #### C MP #### [facility] [address] [address] [address] Lamberto Hamm Protein [Mass/Vol] 7.2 g/dL Normal 6.4-8.2 [facility] Comment on above: Performed By: #### C MP #### [facility] [address] [address] [address] Lamberto Hamm Sodium [Moles/Vol] 140 mmol/L Normal 136-145 [facility] Comment on above: Performed By: #### C MP #### [facility] [address] [address] [address] Lamberto Hamm Urea nitrogen [Mass/Vol] 8.0 mg/dL Normal 7.0-18.0 [facility] Comment on above: Performed By: #### C MP #### [facility] [address] [address] [address] Lamberto Hamm Urea nitrogen/Creatinin e [Mass ratio] 12.1 mg/mg Normal [facility] Comment on above: Performed By: #### C MP #### [facility] [address] [place] [address] Dr. Lamberto Hamm XR CHEST 1 Von [...] VERNON CLEANING Date: 2022-01-28 09:27 Normal [facility] CBC AUTO DIFFon 12-07-2021 BASO # 0.0 103/ul Normal 0.0-0.1 [facility] Comment on above: Performed By: #### C BC #### [facility] [address] [place] [address] Dr. Lamberto Hamm Basophils/100 WBC (Bld) 0.5 % Normal 0.2-2.0 [facility] Comment on above: Performed By: #### C BC #### [facility] [address] [place] [address] Dr. Lamberto Hamm EO # 0.1 103/ul Normal 0.0-0.7 [facility] Comment on above: Performed By: #### C BC #### [facility] [address] [address] [address] Lamberto Hamm Eosinophils/100 WBC (Bld) 1.3 % Normal 0.9-7.0 [facility] Comment on above: Performed By: #### C BC #### [facility] [address] [address] [address] Lamberto Hamm Erythrocyte distribution width (RBC) [Ratio] 12.0 % Normal 11.0-15.0 [facility] Comment on above: Performed By: #### C BC #### [facility] [address] [place] [address] Dr. Lamberto Hamm Hematocrit (Bld) [Volume fraction] 41.9 % Normal 36.0-48.0 [facility] Comment on above: Performed By: #### C BC #### [facility] [address] [place] [address] Dr. Lamberto Hamm Hemoglobin (Bld) [Mass/Vol] 13.9 g/dL Normal 12.0-16.0 [facility] Comment on above: Performed By: #### C BC #### [facility] [address] [place] [address] Dr. Lamberto Hamm IG # 0.02 10e3/ul Normal 0.00-0.03 [facility] Comment on above: Performed By: #### C BC #### [facility] [address] [place] [address] Dr. Lamberto Hamm IG % 0.3 % Normal 0.0-0.5 [facility] Comment on above: Performed By: #### C BC #### [facility] [address] [place] [address] Dr. Lamberto Hamm LYMPH # 1.7 103/ul Normal 1.2-3.8 [facility] Comment on above: Performed By: #### C BC #### [facility] [address] [place] [address] Dr. Lamberto Hamm Lymphocytes/100 WBC (Bld) 27.0 % Normal 20.5-60.0 [facility] Comment on above: Performed By: #### C BC #### [facility] [address] [place] [address] Dr. Lamberto Hamm MANUAL DIFF REQ NO Normal [facility] Comment on above: Performed By: #### C BC #### [facility] [address] [place] [address] Dr. Lamberto Hamm MCH (RBC) [Entitic mass] 30.5 pg Normal 26.7-34.0 [facility] Comment on above: Performed By: #### C BC #### [facility] [address] [place] [address] Dr. Lamberto Hamm MCHC (RBC) [Mass/Vol] 33.2 g/dL Normal 29.9-35.2 [facility] Comment on above: Performed By: #### C BC #### [facility] [address] [place] [address] Dr. Lamberto Hamm MCV (RBC) [Entitic vol] 91.9 fL Normal 81.0-99.0 [facility] Comment on above: Performed By: #### C BC #### [facility] [address] [address] [address] Lamberto Hamm MONO # 0.5 103/ul Normal 0.3-0.8 [facility] Comment on above: Performed By: #### C BC #### [facility] [address] [place] [address] Dr. Lamberto Hamm Monocytes/100 WBC (Bld) 7.9 % Normal 1.7-12.0 [facility] Comment on above: Performed By: #### C BC #### [facility] [address] [place] [address] Dr. Lamberto Hamm NEUT # 4.0 103/ul Normal 1.4-6.5 [facility] Comment on above: Performed By: #### C BC #### [facility] [address] [place] [address] Dr. Lamberto Hamm Neutrophils/100 WBC (Bld) 63.0 % Normal 43.0-75.0 [facility] Comment on above: Performed By: #### C BC #### [facility] [address] [place] [address] Dr. Lamberto Hamm Platelet mean volume (Bld) [Entitic vol] 9.6 fL Normal 9.5-13.5 [facility] Comment on above: Performed By: #### C BC #### [facility] [address] [place] [address] Dr. Lamberto Hamm PLT 308 103/ul Normal 150-450 [facility] Comment on above: Performed By: #### C BC #### [facility] [address] [place] [address] Dr. Lamberto Hamm RBC 4.56 106/ul Normal 4.20-5.40 [facility] Comment on above: Performed By: #### C BC #### [facility] [address] [address] [address] Lamberto Hamm WBC 6.4 103/ul Normal 4.0-11.0 [facility] Comment on above: Performed By: #### C BC #### [facility] [address] [address] [address] Lamberto Hamm LIPID PROFILEon 12-07-2021 CHOL-HDL RATIO NORM SEE BELOW Normal [facility] Comment on above: Result Comment: 3.3 - 4.4 LOW RISK 4.4 - 7.1 AVERAGE RISK 7.1 - 11.0 MODERATE RISK >11.0 HIGH RISK Performed By: #### C MP, LIPID #### [facility] [address] [place] [address] Dr. Lamberto Hamm Cholesterol [Mass/Vol] 218 mg/dL Critically high <=200 [facility] Comment on above: Performed By: #### C MP, LIPID #### [facility] [address] [place] [address] Dr. Lamberto Hamm Cholesterol in HDL [Mass/Vol] 77 mg/dL Critically high 40-60 [facility] Comment on above: Performed By: #### C MP, LIPID #### [facility] [address] [address] [address] Lamberto Hamm Cholesterol in LDL [Mass/Vol] 121.6 mg/dL Normal [facility] Comment on above: Performed By: #### C MP, LIPID #### [facility] [address] [place] [address] Dr. Lamberto Hamm Cholesterol.total/ Cholesterol in HDL [Mass ratio] 2.8 {ratio} Normal [facility] Comment on above: Performed By: #### C MP, LIPID #### [facility] [address] [place] [address] Dr. Lamberto Hamm HDL NORMAL > or = 60 mg/dl - LO W CARDIOVASCULAR RISK <40 mg/dl - HIGH CARDIOVASCULAR RISK Normal [facility] Comment on above: Performed By: #### C MP, LIPID #### [facility] [address] [address] [address] Lamberto Hamm LDL CALC NORMAL SEE BELOW Normal [facility] Comment on above: Result Comment: <100 mg/dl OPTIMAL 100 - 129 mg/dl NEAR OR ABOVE OPTIMAL 130 - 159 mg/dl BORDERLINE HIGH 160 - 189 mg/dl HIGH >190 mg/dl VERY HIGH Performed By: #### C MP, LIPID #### [facility] [address] [address] [address] Lamberto Hamm Triglyceride [Mass/Vol] 97 mg/dL Normal <=150 [facility] Comment on above: Performed By: #### C MP, LIPID #### [facility] [address] [address] [address] Lamberto Hamm VLDL CALC 19.4 mg/dL Normal [facility] Comment on above: Performed By: #### C MP, LIPID #### [facility] [address] [address] [address] Lamberto Hamm MG MAMM SCREEN 3D CHRIS CADon 12-07-2021 MG MAMM SCREEN 3D CHRIS CAD Patient: ANA MAYS Exam Date: 12/07/2021 : 1940 Gender:F Ordering : DR VIDYA PEREYRA M.D. Admission #: [id number] Family : Order #: [id number] CLICK HERE TO VIEW EXAM RADIOLOGY REPORT [...] Treatments None Family Cancers None LOCATION: [facility] BREAST COMPOSITION: Heterogeneously dense,which may obscure small [...] Hernandez MD on 12/07/2021 at 13:05 Normal [facility] PROF 14(COMP METB)on 022 Albumin [Mass/Vol] 3.8 g/dL Normal 3.4-5.0 [facility] Comment on above: Performed By: #### C MP, LIPID #### [facility] [address] [place] [address] Dr. Lamberto Hamm Albumin/Globulin [Mass ratio] 1.0 {ratio} Normal [facility] Comment on above: Performed By: #### C MP, LIPID #### [facility] [address] [place] [address] Dr. Lamberto Hamm ALP [Catalytic activity/Vol] 92 U/L Normal 46-116 [facility] Comment on above: Performed By: #### C MP, LIPID #### [facility] [address] [place] [address] Dr. Lamberto Hamm ALT [Catalytic activity/Vol] 22 U/L Normal 14-59 [facility] Comment on above: Performed By: #### C MP, LIPID #### [facility] [address] [place] [address] Dr. Lamberto Hamm Anion gap [Moles/Vol] 11.0 mmol/L Normal [facility] Comment on above: Performed By: #### C MP, LIPID #### [facility] [address] [place] [address] Dr. Lamberto Hamm AST [Catalytic activity/Vol] 17 U/L Normal 15-37 [facility] Comment on above: Performed By: #### C MP, LIPID #### [facility] [address] [place] [address] Dr. Lamberto Hamm Bilirubin [Mass/Vol] 0.6 mg/dL Normal 0.2-1.0 [facility] Comment on above: Performed By: #### C MP, LIPID #### [facility] [address] [place] [address] Dr. Lamberto Hamm Calcium [Mass/Vol] 9.4 mg/dL Normal 8.5-10.1 [facility] Comment on above: Performed By: #### C MP, LIPID #### [facility] [address] [place] [address] Dr. Lamberto Hamm Chloride [Moles/Vol] 101 mmol/L Normal 98-107 [facility] Comment on above: Performed By: #### C MP, LIPID #### [facility] [address] [place] [address] Dr. Lamberto Hamm CO2 [Moles/Vol] 30.0 mmol/L Normal 21.0-32.0 [facility] Comment on above: Performed By: #### C MP, LIPID #### [facility] [address] [place] [address] Dr. Lamberto Hamm Creatinine [Mass/Vol] 0.72 mg/dL Normal 0.55-1.02 [facility] Comment on above: Performed By: #### C MP, LIPID #### [facility] [address] [place] [address] Dr. Lamberto Hamm EGFR-AF GIBRALTARIAN >60 Normal >=60 [facility] Comment on above: Performed By: #### C MP, LIPID #### [facility] [address] [place] [address] Dr. Lamberto Hamm EGFR-NON AF GIBRALTARIAN >60 Normal >=60 [facility] Comment on above: Performed By: #### C MP, LIPID #### [facility] [address] [place] [address] Dr. Lamberto Hamm Globulin (S) [Mass/Vol] 3.8 g/dL Normal [facility] Comment on above: Performed By: #### C MP, LIPID #### [facility] [address] [place] [address] Dr. Lamberto Hamm Glucose [Mass/Vol] 100 mg/dL Normal 74-106 [facility] Comment on above: Performed By: #### C MP, LIPID #### [facility] [address] [place] [address] Dr. Lamberto Hamm Potassium [Moles/Vol] 4.0 mmol/L Normal 3.5-5.1 [facility] Comment on above: Performed By: #### C MP, LIPID #### [facility] [address] [address] [address] Lamberto Hamm Protein [Mass/Vol] 7.6 g/dL Normal 6.4-8.2 [facility] Comment on above: Performed By: #### C MP, LIPID #### [facility] [address] [address] [address] Lamberto Hamm Sodium [Moles/Vol] 138 mmol/L Normal 136-145 [facility] Comment on above: Performed By: #### C MP, LIPID #### [facility] [address] [address] [address] Lamberto Hamm Urea nitrogen [Mass/Vol] 14.0 mg/dL Normal 7.0-18.0 [facility] Comment on above: Performed By: #### C MP, LIPID #### [facility] [address] [address] [address] Lamberto Hamm Urea nitrogen/Creatinin e [Mass ratio] 19.4 mg/mg Normal [facility] Comment on above: Performed By: #### C MP, LIPID #### [facility] [address] [address] [address] Lamberto Hamm Vital Signs Date Time Vital Sign Value Performing Clinician Facility 07-23-2023 15:47-0400 Body height 152.4 cm DO Joce FNZ Work Phone: [facility] 07-23-2023 10:08-0400 Body height 152.4 cm [facility] 07-23-2023 10:08-0400 Body mass index (BMI) [Ratio] 27.1 kg/m2 [facility] 07-23-2023 10:08-0400 Body weight 63.04 kg [facility] 07-23-2023 10:08-0400 Diastolic blood pressure 73 mm[Hg] [facility] 07-23-2023 10:08-0400 Heart rate 55 /min [facility] 07-23-2023 10:08-0400 Systolic blood pressure 169 mm[Hg] [facility] 12-05-2022 09:30-0400 Body height 152.4 cm Vidya Pereyra Other [facility] Other 12-05-2022 09:30-0400 Body mass index (BMI) [Ratio] 27.77 kg/m2 Vidya Pereyra Other [facility] Other 12-05-2022 09:30-0400 Body weight 64.5 kg Vidya Pereyra Other [facility] Other 12-05-2022 09:30-0400 Diastolic blood pressure 81 mm[Hg] Vidya Pereyra Other [facility] Other 12-05-2022 09:30-0400 Systolic blood pressure 145 mm[Hg] Vidya Pereyra Other [facility] Other 10-16-2022 10:30-0400 Body height 152.4 cm Vidya Pereyra Other [facility] Other 10-16-2022 10:30-0400 Body mass index (BMI) [Ratio] 27.85 kg/m2 Vidya Pereyra Other [facility] Other 10-16-2022 10:30-0400 Body weight 64.68 kg Vidya Pereyra Other [facility] Other 10-16-2022 10:30-0400 Diastolic blood pressure 81 mm[Hg] Vidya Pereyra Other [facility] Other 10-16-2022 10:30-0400 Respiratory rate 12 /min Vidya Pereyra Other [facility] Other 10-16-2022 10:30-0400 Systolic blood pressure 179 mm[Hg] Vidya Pereyra Other [facility] Other 09-15-2022 12:00-0400 Body height 152.4 cm Vidya Pereyra Other [facility] Other 09-15-2022 12:00-0400 Body mass index (BMI) [Ratio] 28.51 kg/m2 Vidya Pereyra Other [facility] Other 09-15-2022 12:00-0400 Body weight 66.23 kg Viday Pereyra Other [facility] Other 09-15-2022 12:00-0400 Diastolic blood pressure 77 mm[Hg] Vidya Pereyra Other [facility] Other 09-15-2022 12:00-0400 Systolic blood pressure 157 mm[Hg] Vidya Pereyra Other [facility] Other 09-06-2022 13:30-0400 Body height 152.4 cm Sneha Jaramillo Other [facility] Other 09-06-2022 13:30-0400 Body mass index (BMI) [Ratio] 28.12 kg/m2 Sneha Jaramillo Other [facility] Other 09-06-2022 13:30-0400 Body weight 65.32 kg Sneha Jaramillo Other [facility] Other 09-06-2022 13:30-0400 Diastolic blood pressure 68 mm[Hg] Sneha Jaramillo Other [facility] Other 09-06-2022 13:30-0400 Systolic blood pressure 118 mm[Hg] Sneha Jaramillo Other [facility] Other 06-15-2022 10:45-0400 Body height 152.4 cm Vidya Pereyra Other [facility] Other 06-15-2022 10:45-0400 Body mass index (BMI) [Ratio] 27.92 kg/m2 Vidya Pereyra Other [facility] Other 06-15-2022 10:45-0400 Body temperature 97.9 [degF] Vidya Pereyra Other [facility] Other 06-15-2022 10:45-0400 Body weight 64.86 kg Vidya Pereyra Other [facility] Other 06-15-2022 10:45-0400 Diastolic blood pressure 68 mm[Hg] Vidya Pereyra Other [facility] Other 06-15-2022 10:45-0400 SaO2% (BldA) [Mass fraction] 96 % Vidya Pereyra Other [facility] Other 06-15-2022 10:45-0400 Systolic blood pressure 132 mm[Hg] Vidya Pereyra Other [facility] Other 04-10-2022 11:00-0500 Body height 152.4 cm Vidya Pereyra Other [facility] Other 04-10-2022 11:00-0500 Body mass index (BMI) [Ratio] 27.53 kg/m2 Vidya Pereyra Other [facility] Other 04-10-2022 11:00-0500 Body weight 63.96 kg Vidya Pereyra Other [facility] Other 04-10-2022 11:00-0500 Diastolic blood pressure 72 mm[Hg] Vidya Pereyra Other [facility] Other 04-10-2022 11:00-0500 SaO2% (BldA) [Mass fraction] 96 % Vidya Pereyra Other [facility] Other 04-10-2022 11:00-0500 Systolic blood pressure 138 mm[Hg] Vidya Pereyra Other [facility] Other Encounters Encounter Date Encounter Type Care Provider Facility Start: 07-23-2023 End: 07-23-2023 Departed Referred DO Joce FNZ Work Phone: [facility] [place] Work Phone: Start: 07-23-2023 End: 07-23-2023 ambulatory DO Joce FNZ Work Phone: [facility] Work Phone: Start: 07-23-2023 End: 07-23-2023 Patient encounter procedure [facility] Work Phone: Start: 05-15-2023 End: 05-15-[address] [facility] Start: 04-27-2023 Non-patient / Non-visit [facility] [employer] Work Phone: Start: 03-02-2023 End: 03-02-2023 ambulatory [facility] Start: 12-18-2022 End: 12-18-[address] [facility] Start: 12-11-2022 End: 12-11-2022 ambulatory Vidya Pereyra Other [facility] [employer] Other Start: 12-11-2022 Telephone encounter Vidya Pereyra [facility] Start: 12-05-2022 Office outpatient vi sit 15 minutes Vidya Pereyra [facility] Start: 12-05-2022 End: 12-05-2022 ambulatory DO Joce Moreno Work Phone: [facility] Work Phone: Start: 12-05-2022 End: 12-05-2022 Departed Referred DO Joce FNZ Work Phone: [facility] [place] Work Phone: Start: 10-27-2022 End: 10-27-2022 ambulatory [facility]AV[facility]NA [facility] Start: 10-16-2022 End: 10-16-2022 ambulatory Vidya Pereyra Other [facility] Other Start: 10-16-2022 Office outpatient vi sit 15 minutes Vidya Pereyra [facility] Start: 09-15-2022 End: 09-15-2022 ambulatory Vidya Pereyra Other [facility] Other Start: 09-15-2022 Office outpatient vi sit 15 minutes Vidya Pereyra [facility] Start: 09-12-2022 End: 09-12-2022 ambulatory Vidya Pereyra Other [facility] Other Start: 09-12-2022 Telephone encounter Vidya Pereyra [facility] Start: 09-06-2022 End: 09-06-2022 ambulatory Sneha Jaramillo Other [facility] Other Start: 09-06-2022 Office outpatient vi sit 15 minutes Sneha Jaramillo [facility] Start: 06-15-2022 End: 06-15-2022 ambulatory Vidya Pereyra Other [facility] Other Start: 06-15-2022 Office outpatient vi sit 15 minutes Vidya Pereyra [facility] Start: 04-10-2022 End: 04-10-2022 ambulatory Vidya Pereyra Other [facility] Other Start: 04-10-2022 Office outpatient vi sit 15 minutes Vidya Pereyra [facility] Start: 01-31-2022 Adult health examination Sneha Jaramillo Other [facility] Other Start: 01-28-2022 End: 01-28-[address] VIDYA PEREYRA Facility:[facility] Start: 12-07-2021 End: 12-08-[address] VIDYA PEREYRA Facility:[facility] Procedures Date Procedure Procedure Detail Performing Clinician Start: 05-15-2023 Follow-up visit Follow-up SAVANNA RAMOS Start: 09-14-2014 Screening mammography Eva Jaramillo Other Start: 11-14-2012 General examination of patient Sneha Jaramillo Other Screening for malign ant neoplasm of breast Sneha Jaramillo Other Plan of Treatment Date Care Activity Detail Author Start: 07-24-2023 Bacteria identified in Urine by Culture [facility] Start: 07-23-2023 Bacteria identified in Urine by Culture [facility] Start: 12-05-2022 Bacteria identified in Urine by Culture [facility] Immunizations Immunization Date Immunization Notes Care Provider Fa cility 11-12-2019 influenza virus vaccine, split virus (incl. purified surface antigen) Sneha Jaramillo Other [facility] Other 11-12-2019 influenza virus vaccine, unspecified formulation [facility] 12-04-2018 influenza virus vaccine, split virus (incl. purified surface antigen) Sneha Jaramillo Other [facility] Other 12-04-2018 influenza virus vaccine, unspecified formulation [facility] 10-10-2018 pneumococcal Conjuga te, unspecified formulation; Translations: [Need for prophylactic vaccination against Streptococcus pneumoniae (pneumococcus)] Sneha Wall[employer]pana Other [email or web address] Other 10-10-2018 pneumococcal polysaccharide vaccine, 23 valent Sneha Jaramillo Other [facility] 11-22-2017 influenza virus vaccine, split virus (incl. purified surface antigen) Sneha Jaramillo Other [facility] [employer] Other 11-22-2017 influenza virus vaccine, unspecified formulation [facility] 06-07-2017 pneumococcal conjuga te vaccine, 13 valent Sneha Jaramillo Other [facility] 12-12-2016 influenza virus vaccine, split virus (incl. purified surface antigen) Sneha Jaramillo Other [facility] [employer] Other 12-12-2016 influenza virus vaccine, unspecified formulation [facility] Payers Date Payer Category Payer Self-pay [id number] 1957 Medicare [id number] 1957 Unknown [id number] 1940 Unknown [id number] 1940 Unknown [id number] [id number] [id number] Medicare Medicare Outpatient [id number] 3A [id number] Unknown [id number] Unknown [id number] [id number] [id number] Social History Date Type Detail Facility Sex Assigned At [facility] [employer] Other Start: 1940 Sex Assigned At Female [facility] Clinical Notes 04-10-2022 to 03-02-2023 Note Date & Type Note Facility 03-02-2023 Note Hypertension is much improved in office and pt states b/p at home and review of b/p log shows HTN is well controlled at home Continue losartan 100 mg and norvasc 5 mg Repeat renal function after increased losartan dose remained stable [facility] 03-02-2023 Note [facility]TP CARDIOLOGY PROGR ESS NOTE [...] Continue meds as prescribed, RTC 3-6 months [facility] 03-02-2023 Note Patient here for 3 m o follow up atypical chest pain, DEJEUSS, hypertension, and valve disorder. Losartan was increased to 100mg daily at last apt in Dec [address] Ramos. She is doing well with medication increase. Still denies chest pain, SOB, and palpitations. Review of Systems Musculoskeletal: Positive for muscle weakness. Neurological: Positive for headaches. All other systems reviewed and are negative. [facility] 12-18-2022 Note Cardiology Clinic No te Chief [...] as needed Savanna Ramos MD Interventional Cardiology [facility] 12-18-2022 Note Patient here for fol low up echo and stress test. Losartan was increased to 50mg in Oct 2022 at last apt. She states BP has been running around 139-140's systolic. She says dizziness and palpitations have resolved. Denies chest pain and SOB. Review of Systems Musculoskeletal: Positive for muscle weakness. Neurological: Positive for headaches. All other systems reviewed and are negative. [facility] 12-05-2022 Evaluation note Encounter Date Diagnosis Assessment Notes Nov, Dysuria (ICD-10 - R30.0) Culture pending. Treat empirically in meantime. Improve hydration. [facility] Other 09-22-2023 NoteNew patient here to establish care. Ref from Dr. Pereyra for hypertension and dizziness. She was seen in [facility] ED in Sep [address] Pereyra ordered stress test but she has declined for now. She denies recurrent chest pain and SOB. Dizziness is improving she says. Does feel occasional palpitations. Review of Systems Cardiovascular: Positive for palpitations. Musculoskeletal: Positive for muscle weakness. Neurological: Positive for dizziness, headaches and light-headedness. All other systems reviewed and are negative.[facility] 10-27-2022 NoteCardiology Clinic Note Chief Complaint: chest [...] or concerns. Savanna Ramos MD Interventional Cardiology [facility]09-11-2023 Evaluation note* Encounter Date Diagnosis Assessment Notes [...] Will proceed with the referral to Cardiology. [facility] Other 08-11-2023 Evaluation note* Encounter Date Diagnosis Assessment Notes Treatment Notes Treatment Clinical Notes Sep, Essential (primary) hypertension (ICD-10 - I10) Add losartan to the Norvasc for improved BP control. Limit salt and walk daily as able. Apr, Chest pain, unspecified (ICD-10 - R07.9) Chest pain Discussed symptoms. Pt agrees to stress test. Will arrange at the hospital to r/o CAD. [facility] Other 08-02-2023 Evaluation note* Encounter Date Diagnosis [...] and call next week with updated numbers [facility] Other 05-11-2023 Evaluation note* Encounter Date Diagnosis Assessment Notes Treatment Notes Treatment Clinical Notes June, Bronchitis (ICD-10 - J40) Encouraged her to continue mucinex, rest, fluids. Call or ER if not improving. [facility] Other 03-06-2023 Evaluation note* Encounter Date Diagnosis [...] symptoms. Any developing patterns. Stay well hydrated. [facility] Other Evaluation noteNo [employer] Other Evaluation noteNo assessment information available [facility] Work Phone: Evaluation note* Diagnosis Onset Date Resolution Status Abdominal pain acute [facility] Work Phone: History general Narrative - Reported* Type Description Date Medical History Esophageal reflux Medical History high cholesterol Surgical History tubal ligation Hospitalization History see above [facility] Other Summary Purpose Family History No Family History Records Found Relationship Condition Age at Onset Recorded Date/T collin brother Unknown daughter Malignant neoplasm Unknown father Heart disease Unknown Unknown family member Unknown Not Specified Unknown Advance Directives No Advanced Directives Records Found Advance Directive Response Recorded Date/ Time Advance Directives No January 8:55pm Reason for Referral Reason *FU 10/23 Dr. Janki jerez at [facility]. - Last OV and today, [facility] on 09/12 - lightheadedness, uncontrolled HTN Diagnosis 1 Essential (primary) hypertension (I10) Referral Organization [facility] Referring Provider First Name Vidya Referring Provider Last Name Hafsa Referring Provider Specialty Family Medi cine Referred Organization [facility] Referred Provider Alcon Cormier V Referred Address [address],[place], [place],[address] Referred Provider Specialty Cardiovascul ar Disease Referral Priority Routine General Notes Veronica Mahan 11:39:32 AM >received today, attachments made, notes locked, referral faxed Clinical Notes P: [id number] F: [id number] Chief Complaint and Reason for Visit Chief Complaint Amb Documentation possible UTI Reason for Visit Abdominal pain Additional Source Comments INFORMATION SOURCE (unrecogn ized section and content) DATE CREATED AUTHOR 02/01/2022 [facility] DATE CREATED AUTHOR AUTHOR'S ORGANIZ ATION 05/16/2023 [facility] DATE CREATED AUTHOR AUTHOR'S ORGANIZ ATION 07/27/2023 [facility] REASON FOR VISIT (unrecogniz ed section and content) BLOOD PRESSURESore Throat- C OVID NegativeBPER Follow UpTBHBP/ Stress Test Discussionuti, pressure on bladderurine culture Care Teams (unrecognized sec tion and content) Team Status: Active Member Role Status Dates Joce Moreno DO Primary Care Provider Active Team Status: Active Member Role Status Dates Joce Moreno DO Primary Care Provider Active Start: April 27, 2023 SUMI Larson Attending Provider Active Start : April 27, 2023 Team Status: Inactive Member Role Status Dates Joce Moreno DO Primary Care Provider Active Start: July 23, 2023 End: July 23, 2023 Vidya Pereyra MD Attending Provider Active St art: July 23, 2023 End: July 23, 2023 Team Status: Inactive Member Role Status Dates Joce Moreno , Primary Care Provider Active Vidya Pereyra MD [...] BE BASED ON THE PRIMARY CLINICAL RECORDS. [email or web address] [facility]. provides no warranty or guarantee of the accuracy or completeness of information in this document.
== END 2023-08-02 10:36 | disposition home or self-care (01) ==
PROVIDERS: PCP Family Medicine; Visit Provider Family Medicine
DX: R10.30 Lower abdominal pain, unspecified (principal)
CPT/HCPCS: 76856

== ENCOUNTER 2023-08-29 08:53 | Outpatient (OUT) | payer MEDICARE, SELFPAY ==
--- NOTE | 2023-08-29 09:13 | CT_ITS ---
[address] [address] Patient Name: BETY JOHNSON MRN: [id number] date: 1940 Sex: F Assigned Patient Location: LAB Current Patient Location: Accession/Order Number: [id number] Exam Date: 08/29/2023 10:15 Report Date: 08/30/2023 07:57 At the request of: ALEXIS PEREYRA Procedure: CT abdomen pelvis w con EXAMINATION: CT abdomen pelvis w con HISTORY: Abdominal Pain R10.9 COMPARISON: No relevant comparison available. TECHNIQUE: CT images were created with IV contrast. Axial, Coronal, and Sagittal images. Dose reduction techniques were achieved by using automated exposure control and/or adjustment of mA and/or kV according to patient size and/or use of iterative reconstruction technique. FINDINGS: LUNG BASES: No visible pulmonary or pleural disease. LIVER: No enlargement, atrophy, abnormal density, or significant focal lesion. BILIARY: No visible dilatation or calcification. PANCREAS: No lesion, fluid collection, ductal dilatation, or atrophy. SPLEEN: No enlargement or focal lesion. ADRENALS: No mass or enlargement. KIDNEYS: No obstructive uropathy. Right renal cortical hypodensities, simple cysts BOWEL/MESENTERY: No visible mass, obstruction, or bowel wall thickening. AORTA/VASCULAR: No aortic aneurysm. Moderate calcific atherosclerosis RETROPERITONEUM: No mass or adenopathy. LYMPH NODES: No adenopathy. URINARY BLADDER: No visible focal wall thickening, lesion, or calculus. PELVIC ORGANS: No visible mass. Pelvic organs appropriate for patient age. ABDOMINAL WALL: No mass or hernia. BONES: Moderate degenerative changes with no acute fracture or spondylolisthesis. 5 mm anterolisthesis of L5 in relation S1. T12 kyphoplasty OTHER: Negative. CT/CT abdomen pelvis w con IMPRESSION: No acute intraperitoneal abnormality Electronically authenticated by: VINICIUS DELONG Date: 08/30/2023 07:57
--- OUTSIDE RECORDS SUMMARY | 2023-08-29 09:15 | XMS_ITS | CCD ---
Author Organization [facility] Care Team Providers Care Sed Special Education Teacher Name Role Phone DR VIDYA PEREYRA Primary [...] Care Provider MD Vidya Pereyra Attending Provider DO Joce Moreno Primary Care Provider [phone] MD Vidya Pereyra Attending Provider [phone] Vidya Pereyra Attending Unavailable Vidya Pereyra Admitting Unavailable Joce Moreno Primary Care Unavailable Joce Moreno Primary Care Unavailable Vidya Pereyra Attending Unavailable Vidya Pereyra Admitting Unavailable SAVANNA RAMOS Attending Unavailable SAVANNA RAMOS Attending Unavailable EULA NIETO Attending Unavailable SAVANNA RAMOS Attending Unavailable Allergies Allergy Classification Reported Allergen(s) Allergy Type Date of Onset Reaction(s) Facility (1 source) Sulfonamides (Antibiotic) Drug allergy (disorder) [facility] (8 sources) Sulfacetamide / Sulfur Drug Allergy Unknown [facility] Other (6 sources) Sulfamethoxazole / Trimethoprim Drug Allergy 09-01-19 15 Unknown [facility] Other (1 source) patient allergy list reviewed by nurse or physicia Propensity to adverse reactions 04-21-19 15 Comment:Done [facility] Other (1 source) Allergies Reconciled Propensity to adverse reactions Unknown [facility] Other (4 sources) Sulfacetamide; Translations: [sulfacetamide] Drug Allergy 07-23-19 24 [facility] (4 sources) Sulfamethoxazole; Translations: [sulfamethoxazole] Drug Allergy 07-23-19 [facility] (4 sources) Sulfur; Translations: [sulfur] Drug Allergy 07-23-19 [facility] (4 sources) Trimethoprim; Translations: [trimethoprim] Drug Allergy 07-23-19 [facility] (1 source) Sulfamethoxazole / Trimethoprim; Translations: [SULFAMETHOXAZOLE-T RIMETHOPRIM] Drug Allergy 10-28-19 [facility] (1 source) Sulfonamides (Antibiotic); Translations: [SULFA (SULFONAMIDE ANTIBIOTICS)] Propensity to adverse reactions to drug (disorder) 10-28-19 [facility] Medications Current Medications Medication Drug Class(es) Dates Sig (Normalized) Sig (Original) amLODIPine 5 mg oral tablet (11 sources) Dihydropyridine Calcium Channel Nhung Start: 07-23-2023 [...] Active losartan potassium 50 mg oral tablet (7 sources) Angiotensin 2 Receptor Nhung Start: 07-23-2023 [...] / nitrofurantoin, monohydrate 75 mg oral capsule (3 sources) Nitrofuran Antibacterial Start: 07-23-2023 take 1 capsule by mouth twice daily at mealtime Nitrofurantoin Monohyd/M-Cryst (Macrobid) 100 mg capsule Active 100 MG PO Twice daily July 23, 2023 12:00am must administer with a meal/food omeprazole 20 mg delayed release oral capsule (15 sources) Proton Pump Inhibitor Start: 04-27-2023 End: 08-14-2023 take 20 mg by mouth once daily Omeprazole Active 20 MG PO Daily August 14, 2023 11:02am take 1 capsule by mouth once bhupinder ly Omeprazole 20 MG Take 1 capsule by mouth once daily for 90 Active take 1 tablet by mouth once manny y Omeprazole 20 MG 1 tablet 30 minutes before morning meal Orally Once a day Active simvastatin 20 mg oral tablet (12 sources) HMG-CoA Reductase Inhibitor Start: 07-23-2023 End: 08-14-2023 take 1 tablet by mouth once daily in the evening Simvastatin Active 20 MG PO Daily August 14, 2023 11:02am [employer] tablet in the evening Orally Once [...] Problem Date Documented Date Episodic/Chronic Abdominal pain (8 sources) Abdominal pain; Translations: [Unspecified abdominal pain] [...] 04-27-2014 Chronic Other aftercare (1 source) Other shelter (current) drug therapy; Translations: [OTH DENIAL MANAGEMENT REPRESENTATIVE CURRENT DRUG THERAPY] Onset: 02-01-2022 Episodic Other [...] Test Name Value Interpretation Reference Range Facility Laboratory - Chemistry and C hemistry - challengeon 07-23-2023 Bilirubin Ql (U) Negative [facility] Glucose (U) [Mass/Vol] Negative [facility] Ketones Ql (U) Negative [facility] pH (U) 5 [pH] [facility] Specific gravity (U) [Rel density] 1.000 [facility] Urobilinogen (U) [Mass/Vol] 0.2 mg/dL [facility] Laboratory - Specimen inform ationon 07-23-2023 Appearance (U) clear [facility] Color (U) yellow [facility] Laboratory - Urinalysison Leukocyte esterase Test strip Ql (U) Negative [facility] Nitrite Ql (U) Negative [facility] Protein Ql (U) Negative [facility] No Panel Informationon 07-22 Urine Occult Blood Negative [facility] Urine Cultureon 07-23-2023 Bacteria identified Cx Nom (U) 50,000 colonies/ml mixed bacterial skin contaminants 2 Days PERFORMED BY: [place] [address] PATHOLOGIST [employer] TEXTILE SUPERVISOR WILFRED SALAS M.D. Normal [facility] Comment on above: Performed By: #### C UU #### [address] Urine culture routineOrdered By: Vidya Pereyra on 07-23-2023 Bacteria identified Cx Nom (U) 2 Days [facility] Office Visiton 05-15-2023 Follow-up visit [id number] Ana Mays 1940 F Date Provider Department Center 05/15/2023 SAVANNA MCDANIEL Family History Problem Relation Age of Onset Coronary artery disease Father Cancer Daughter Family Status - Relation Status Age at Father Daughter Other Level of Service:[address]35 [place] OFFICE/OUTPATIENT ESTABLISHED LOW MDM 20 MIN Reason for Visit and Comments: Follow-up [363558] - 3 month follow up Normal [facility] Office Visiton 03-02-2023 Follow-up visit [id number] Ana Mays 1940 F Date Provider Department Center 03/02/2023 EULA MILES Family History Problem Relation Age of Onset Coronary artery disease Father Cancer Daughter Family Status - Relation Status Age at Father Daughter Other Level of Service:26294 [place] OFFICE/OUTPATIENT ESTABLISHED LOW MDM 20 MIN Normal [facility] Office Visiton 12-18-2022 Follow-up visit [id number] Ana Mays 1940 F Date Provider Department Center 12/18/2022 SAVANNA MCDANIEL Family History Problem Relation Age of Onset Coronary artery disease Father Cancer Daughter Family Status - Relation Status Age at Father Daughter Other Level of Service:56565 [place] OFFICE/OUTPATIENT ESTABLISHED MOD MDM 30-39 MIN Normal [facility] Urine Cultureon 12-05-2022 Bacteria identified Cx Nom (U) Reason for Exam Dysuria Urine Reason for Exam: Dysuria : Urine 20,000 colonies/ml mixed bacterial skin contaminants 2 Days PERFORMED BY: [facility] [address] [id number] PATHOLOGIST [employer] TEXTILE SUPERVISOR WILFRED SALAS M.D. Normal [facility] Comment on above: Performed By: #### C UU #### [place] [id number] [facility] Office Visiton 10-27-2022 Follow-up visit [id number] Ana Mays 1940 F Date Provider Department Center 10/27/[address] [facility] Family History Problem Relation Age of Onset Coronary artery disease Father Cancer Daughter Family Status - Relation Status Age at Father Daughter Other Level of Service:55245 [place] OFFICE/OUTPATIENT NEW MODERATE MDM 45-59 MINUTES Normal [facility] CARDIAC CRIS ADMITon 022 CK [Catalytic activity/Vol] 58 U/L Normal 26-192 [facility] Comment on above: Performed By: #### C MADM #### [facility] [address], [place] [address] Dr. Lamberto Hamm CK.MB [Mass/Vol] 1.23 ng/mL Normal <=3.60 [facility] Comment on above: Performed By: #### C MADM #### [facility] [address], [place] [address] Dr. Lamberto Hamm HSTROP 10.2 pg/mL Normal 4.0-51.3 [facility] Comment on above: Result Comment: CUT- OFF POINTS HAVE BEEN ESTABLISHED BASED ON THE FOURTH UNIVERSAL DEFINITIONS OF MYOCARDIAL INFARCTION. THE UPPER REFERENCE LIMIT (URL) OF TROPONIN, DEFINED THE 99TH PERCENTILE OF cTnI DISTRIBUTION IN A REFERENCE POPULATION, HAS BEEN CONFIRMED THE DECISION THRESHOLD FOR AR DIAGNOSIS. Performed By: #### C MADM #### [facility] [address] [place] [address] Dr. Lamberto Hamm WILBUR 59 ng/mL Normal 9-82 [facility] Comment on above: Performed By: #### C MADM #### [facility] [address] [place] [address] Dr. Lamberto Hamm CBC AUTO DIFFon 01-28-2022 BASO # 0.0 103/ul Normal 0.0-0.1 [facility] Comment on above: Performed By: #### C BC #### [facility] [address] [place] [address] Dr. Lamberto Hamm Basophils/100 WBC (Bld) 0.5 % Normal 0.2-2.0 [facility] Comment on above: Performed By: #### C BC #### [facility] [address] [place] [address] Dr. Lamberto Hamm EO # 0.2 103/ul Normal 0.0-0.7 [facility] Comment on above: Performed By: #### C BC #### [facility] [address] [place] [address] Dr. Lamberto Hamm Eosinophils/100 WBC (Bld) 3.2 % Normal 0.9-7.0 [facility] Comment on above: Performed By: #### C BC #### [facility] [address] [place] [address] Dr. Lamberto Hamm Erythrocyte distribution width (RBC) [Ratio] 12.4 % Normal 11.0-15.0 [facility] Comment on above: Performed By: #### C BC #### [facility] [address] [place] [address] Dr. Lamberto Hamm Hematocrit (Bld) [Volume fraction] 40.3 % Normal 36.0-48.0 [facility] Comment on above: Performed By: #### C BC #### [facility] [address] [place] [address] Dr. Lamberto Hamm Hemoglobin (Bld) [Mass/Vol] 13.9 g/dL Normal 12.0-16.0 [facility] Comment on above: Performed By: #### C BC #### [facility] [address] [place] [address] Dr. Lamberto Hamm IG # 0.01 10e3/ul Normal 0.00-0.03 [facility] Comment on above: Performed By: #### C BC #### [facility] [address] [place] [address] Dr. Lamberto Hamm IG % 0.2 % Normal 0.0-0.5 [facility] Comment on above: Performed By: #### C BC #### [facility] [address] [place] [address] Dr. Lamberto Hamm LYMPH # 1.0 103/ul Critically low 1.2-3.8 [facility] Comment on above: Performed By: #### C BC #### [facility] [address] [place] [address] Dr. Lamberto Hamm Lymphocytes/100 WBC (Bld) 17.4 % Critically low 20.5-60.0 [facility] Comment on above: Performed By: #### C BC #### [facility] [address] [place] [address] Dr. Lamberto Hamm MANUAL DIFF REQ NO Normal [facility] Comment on above: Performed By: #### C BC #### [facility] [address] [place] [address] Dr. Lamberto Hamm MCH (RBC) [Entitic mass] 30.8 pg Normal 26.7-34.0 [facility] Comment on above: Performed By: #### C BC #### [facility] [address] [place] [address] Dr. Lamberto Hamm MCHC (RBC) [Mass/Vol] 34.5 g/dL Normal 29.9-35.2 [facility] Comment on above: Performed By: #### C BC #### [facility] [address] [place] [address] Dr. Lamberto Hamm MCV (RBC) [Entitic vol] 89.2 fL Normal 81.0-99.0 [facility] Comment on above: Performed By: #### C BC #### [facility] [address] [place] [address] Dr. Lamberto Hamm MONO # 0.5 103/ul Normal 0.3-0.8 [facility] Comment on above: Performed By: #### C BC #### [facility] [address] [place] [address] Dr. Lamberto Hamm Monocytes/100 WBC (Bld) 7.7 % Normal 1.7-12.0 [facility] Comment on above: Performed By: #### C BC #### [facility] [address] [place] [address] Dr. Lamberto Hamm NEUT # 4.2 103/ul Normal 1.4-6.5 [facility] Comment on above: Performed By: #### C BC #### [facility] [address] [place] [address] Dr. Lamberto Hamm Neutrophils/100 WBC (Bld) 71.0 % Normal 43.0-75.0 [facility] Comment on above: Performed By: #### C BC #### [facility] [address] [place] [address] Dr. Lamberto Hamm Platelet mean volume (Bld) [Entitic vol] 9.5 fL Normal 9.5-13.5 [facility] Comment on above: Performed By: #### C BC #### [facility] [address] [place] [address] Dr. Lamberto Hamm PLT 284 103/ul Normal 150-450 [facility] Comment on above: Performed By: #### C BC #### [facility] [address] [place] [address] Dr. Lamberto Hamm RBC 4.52 106/ul Normal 4.20-5.40 [facility] Comment on above: Performed By: #### C BC #### [facility] [address] [place] [address] Dr. Lamberto Hamm WBC 5.9 103/ul Normal 4.0-11.0 [facility] Comment on above: Performed By: #### C BC #### [facility] [address] [place] [address] HEAD WO CONon [...] ALINA MATOS Date: 2022-01-28 09:32 Normal [facility] PROF 14(COMP METB)on 01-28- 022 Albumin [Mass/Vol] 3.6 g/dL Normal 3.4-5.0 [facility] Comment on above: Performed By: #### C MP #### [facility] [address] [place] [address] Dr. Lamberto Hamm Albumin/Globulin [Mass ratio] 1.0 {ratio} Normal [facility] Comment on above: Performed By: #### C MP #### [facility] [address] [place] [address] Dr. Lamberto Hamm ALP [Catalytic activity/Vol] 84 U/L Normal 46-116 [facility] Comment on above: Performed By: #### C MP #### [facility] [address] [place] [address] [address] Lamberto Hamm ALT [Catalytic activity/Vol] 23 U/L Normal 14-59 [facility] Comment on above: Performed By: #### C MP #### [facility] [address] [place] [address] Dr. Lamberto Hamm Anion gap [Moles/Vol] 15.1 mmol/L Normal [facility] Comment on above: Performed By: #### C MP #### [facility] [address] [place] [address] [address] Lamberto Hamm AST [Catalytic activity/Vol] 20 U/L Normal 15-37 [facility] Comment on above: Performed By: #### C MP #### [facility] [address] [place] [address] [address] Lamberto Hamm Bilirubin [Mass/Vol] 0.5 mg/dL Normal 0.2-1.0 [facility] Comment on above: Performed By: #### C MP #### [facility] [address] [place] [address] [address] Lamberto Hamm Calcium [Mass/Vol] 9.0 mg/dL Normal 8.5-10.1 [facility] Comment on above: Performed By: #### C MP #### [facility] [address] [place] [address] [address] Lamberto Hamm Chloride [Moles/Vol] 102 mmol/L Normal 98-107 [facility] Comment on above: Performed By: #### C MP #### [facility] [address] [place] [address] [address] Lamberto Hamm CO2 [Moles/Vol] 26.8 mmol/L Normal 21.0-32.0 [facility] Comment on above: Performed By: #### C MP #### [facility] [address] [place] [address] [address] Lamberto Hamm Creatinine [Mass/Vol] 0.66 mg/dL Normal 0.55-1.02 [facility] Comment on above: Performed By: #### C MP #### [facility] [address] [place] [address] [address] Lamberto Hamm EGFR-AF SENEGALESE >60 Normal >=60 [facility] Comment on above: Performed By: #### C MP #### [facility] [address] [place] [address] [address] Lamberto Hamm EGFR-NON AF SENEGALESE >60 Normal >=60 [facility] Comment on above: Performed By: #### C MP #### [facility] [address] [place] [address] [address] Lamberto Hamm Globulin (S) [Mass/Vol] 3.6 g/dL Normal [facility] Comment on above: Performed By: #### C MP #### [facility] [address] [place] [address] [address] aLmberto Hamm Glucose [Mass/Vol] 103 mg/dL Normal 74-106 [facility] Comment on above: Performed By: #### C MP #### [facility] [address] [place] [address] [address] Lamberto Hamm Potassium [Moles/Vol] 3.9 mmol/L Normal 3.5-5.1 [facility] Comment on above: Performed By: #### C MP #### [facility] [address] [place] [address] [address] Lamberto Hamm Protein [Mass/Vol] 7.2 g/dL Normal 6.4-8.2 [facility] Comment on above: Performed By: #### C MP #### [facility] [address] [place] [address] [address] Lamberto Hamm Sodium [Moles/Vol] 140 mmol/L Normal 136-145 [facility] Comment on above: Performed By: #### C MP #### [facility] [address] [place] [address] [address] Lamberto Hamm Urea nitrogen [Mass/Vol] 8.0 mg/dL Normal 7.0-18.0 [facility] Comment on above: Performed By: #### C MP #### [facility] [address] [place] [address] [address] Lamberto Hamm Urea nitrogen/Creatinine [Mass ratio] 12.1 mg/mg Normal [facility] Comment on above: Performed By: #### C MP #### [facility] [address] [place] [address] [address] Lamberto Hamm XR CHEST 1 Von [...] VERNON CLEANING Date: 2022-01-28 09:27 Normal [facility] CBC AUTO DIFFon 12-07-2021 BASO # 0.0 103/ul Normal 0.0-0.1 [facility] Comment on above: Performed By: #### C BC #### [facility] [address] [place] [address] [address] Lamberto Hamm Basophils/100 WBC (Bld) 0.5 % Normal 0.2-2.0 [facility] Comment on above: Performed By: #### C BC #### [facility] [address] [place] [address] [address] Lamberto Hamm EO # 0.1 103/ul Normal 0.0-0.7 [facility] Comment on above: Performed By: #### C BC #### [facility] [address] [place] [address] [address] Lamberto Hamm Eosinophils/100 WBC (Bld) 1.3 % Normal 0.9-7.0 [facility] Comment on above: Performed By: #### C BC #### [facility] [address] [place] [address] [address] Lamberto Hamm Erythrocyte distribution width (RBC) [Ratio] 12.0 % Normal 11.0-15.0 [facility] Comment on above: Performed By: #### C BC #### [facility] [address] [place] [address] [address] Lamberto Hamm Hematocrit (Bld) [Volume fraction] 41.9 % Normal 36.0-48.0 [facility] Comment on above: Performed By: #### C BC #### [facility] [address] [address] [address] Lamberto Hamm Hemoglobin (Bld) [Mass/Vol] 13.9 g/dL Normal 12.0-16.0 [facility] Comment on above: Performed By: #### C BC #### [facility] [address] [place] [address] Dr. Lamberto Hamm IG # 0.02 10e3/ul Normal 0.00-0.03 [facility] Comment on above: Performed By: #### C BC #### [facility] [address] [place] [address] Dr. Lamberto Hamm IG % 0.3 % Normal 0.0-0.5 [facility] Comment on above: Performed By: #### C BC #### [facility] [address] [place] [address] Dr. Lamberto Hamm LYMPH # 1.7 103/ul Normal 1.2-3.8 [facility] Comment on above: Performed By: #### C BC #### [facility] [address] [place] [address] Dr. Lamberto Hamm Lymphocytes/100 WBC (Bld) 27.0 % Normal 20.5-60.0 [facility] Comment on above: Performed By: #### C BC #### [facility] [address] [place] [address] Dr. Lamberto Hamm MANUAL DIFF REQ NO Normal [facility] Comment on above: Performed By: #### C BC #### [facility] [address] [place] [address] Dr. Lamberto Hamm MCH (RBC) [Entitic mass] 30.5 pg Normal 26.7-34.0 [facility] Comment on above: Performed By: #### C BC #### [facility] [address] [place] [address] Dr. Lamberto Hamm MCHC (RBC) [Mass/Vol] 33.2 g/dL Normal 29.9-35.2 [facility] Comment on above: Performed By: #### C BC #### [facility] [address] [place] [address] Dr. Lamberto Hamm MCV (RBC) [Entitic vol] 91.9 fL Normal 81.0-99.0 [facility] Comment on above: Performed By: #### C BC #### [facility] [address] [place] [address] Dr. Lamberto Hamm MONO # 0.5 103/ul Normal 0.3-0.8 [facility] Comment on above: Performed By: #### C BC #### [facility] [address] [place] [address] Dr. Lamberto Hamm Monocytes/100 WBC (Bld) 7.9 % Normal 1.7-12.0 [facility] Comment on above: Performed By: #### C BC #### [facility] [address] [place] [address] Dr. Lamberto Hamm NEUT # 4.0 103/ul Normal 1.4-6.5 [facility] Comment on above: Performed By: #### C BC #### [facility] [address] [place] [address] Dr. Lamberto Hamm Neutrophils/100 WBC (Bld) 63.0 % Normal 43.0-75.0 [facility] Comment on above: Performed By: #### C BC #### [facility] [address] [place] [address] Dr. Lamberto Hamm Platelet mean volume (Bld) [Entitic vol] 9.6 fL Normal 9.5-13.5 [facility] Comment on above: Performed By: #### C BC #### [facility] [address] [place] [address] Dr. Lamberto Hamm PLT 308 103/ul Normal 150-450 [facility] Comment on above: Performed By: #### C BC #### [facility] [address] [place] [address] Dr. Lamberto Hamm RBC 4.56 106/ul Normal 4.20-5.40 [facility] Comment on above: Performed By: #### C BC #### [facility] [address] [place] [address] Dr. Lamberto Hamm WBC 6.4 103/ul Normal 4.0-11.0 [facility] Comment on above: Performed By: #### C BC #### [facility] [address] [place] [address] Dr. Lamberto Hamm LIPID PROFILEon 12-07-2021 CHOL-HDL RATIO NORM SEE BELOW Normal [facility] Comment on above: Result Comment: 3.3 - 4.4 LOW RISK 4.4 - 7.1 AVERAGE RISK 7.1 - 11.0 MODERATE RISK >11.0 HIGH RISK Performed By: #### C MP, LIPID #### [facility] [address] [place] [address] [address] Lamberto Hamm Cholesterol [Mass/Vol] 218 mg/dL Critically high <=200 [facility] Comment on above: Performed By: #### C MP, LIPID #### [facility] [address] [place] [address] [address] Lamberto Hamm Cholesterol in HDL [Mass/Vol] 77 mg/dL Critically high 40-60 [facility] Comment on above: Performed By: #### C MP, LIPID #### [facility] [address] [place] [address] [address] Lamberto Hamm Cholesterol in LDL [Mass/Vol] 121.6 mg/dL Normal [facility] Comment on above: Performed By: #### C MP, LIPID #### [facility] [address] [place] [address] [address] Lamberto Hamm Cholesterol.total/C holesterol in HDL [Mass ratio] 2.8 {ratio} Normal [facility] Comment on above: Performed By: #### C MP, LIPID #### [facility] [address] [address] [address] Lamberto Hamm HDL NORMAL > or = 60 mg/dl - LO W CARDIOVASCULAR RISK <40 mg/dl - HIGH CARDIOVASCULAR RISK Normal [facility] Comment on above: Performed By: #### C MP, LIPID #### [facility] [address] [address] [address] Lamberto Hamm LDL CALC NORMAL SEE BELOW Normal [facility] Comment on above: Result Comment: <100 mg/dl OPTIMAL 100 - 129 mg/dl NEAR OR ABOVE OPTIMAL 130 - 159 mg/dl BORDERLINE HIGH 160 - 189 mg/dl HIGH >190 mg/dl VERY HIGH Performed By: #### C MP, LIPID #### [facility] [address] [address] [address] Lamberto Hamm Triglyceride [Mass/Vol] 97 mg/dL Normal <=150 [facility] Comment on above: Performed By: #### C MP, LIPID #### [facility] [address] [address] [address] Lamberto Hamm VLDL CALC 19.4 mg/dL Normal [facility] Comment on above: Performed By: #### C MP, LIPID #### [facility] [address] [address] [address] Lamberto Hamm MG MAMM SCREEN 3D CHRIS CADon 12-07-2021 MG MAMM SCREEN 3D CHRIS CAD Patient: ANA MAYS Exam Date: 12/07/2021 : 1940 Gender:F Ordering : DR VIDYA PEREYRA M.D. Admission #: [id number] Family : Order #: [id number] CLICK HERE TO VIEW EXAM RADIOLOGY REPORT [...] Treatments None Family Cancers None LOCATION: [facility] BREAST COMPOSITION: Heterogeneously dense,which may obscure [...] MD on 12/07/2021 at 13:05 Normal [facility] PROF 14(COMP METB)on 022 Albumin [Mass/Vol] 3.8 g/dL Normal 3.4-5.0 [facility] Comment on above: Performed By: #### C MP, LIPID #### [facility] [address] [address] [address] Lamberto Hamm Albumin/Globulin [Mass ratio] 1.0 {ratio} Normal [facility] Comment on above: Performed By: #### C MP, LIPID #### [facility] [address] [place] [address] Dr. Lamberto Hamm ALP [Catalytic activity/Vol] 92 U/L Normal 46-116 [facility] Comment on above: Performed By: #### C MP, LIPID #### [facility] [address] [address] [address] Lamberto Hamm ALT [Catalytic activity/Vol] 22 U/L Normal 14-59 [facility] Comment on above: Performed By: #### C MP, LIPID #### [facility] [address] [place] [address] Dr. Lamberto Hamm Anion gap [Moles/Vol] 11.0 mmol/L Normal [facility] Comment on above: Performed By: #### C MP, LIPID #### [facility] [address] [place] [address] Dr. Lamberto Hamm AST [Catalytic activity/Vol] 17 U/L Normal 15-37 [facility] Comment on above: Performed By: #### C MP, LIPID #### [facility] [address] [place] [address] Dr. Lamberto Hamm Bilirubin [Mass/Vol] 0.6 mg/dL Normal 0.2-1.0 [facility] Comment on above: Performed By: #### C MP, LIPID #### [facility] [address] [place] [address] Dr. Lamberto Hamm Calcium [Mass/Vol] 9.4 mg/dL Normal 8.5-10.1 [facility] Comment on above: Performed By: #### C MP, LIPID #### [facility] [address] [place] [address] Dr. Lamberto Hamm Chloride [Moles/Vol] 101 mmol/L Normal 98-107 [facility] Comment on above: Performed By: #### C MP, LIPID #### [facility] [address] [address] [address] Lamberto Hamm CO2 [Moles/Vol] 30.0 mmol/L Normal 21.0-32.0 [facility] Comment on above: Performed By: #### C MP, LIPID #### [facility] [address] [address] [address] Lamberto Hamm Creatinine [Mass/Vol] 0.72 mg/dL Normal 0.55-1.02 [facility] Comment on above: Performed By: #### C MP, LIPID #### [facility] [address] [address] [address] Lamberto Hamm EGFR-AF SENEGALESE >60 Normal >=60 [facility] Comment on above: Performed By: #### C MP, LIPID #### [facility] [address] [address] [address] Lamberto Hamm EGFR-NON AF SENEGALESE >60 Normal >=60 [facility] Comment on above: Performed By: #### C MP, LIPID #### [facility] [address] [address] [address] Lamberto Hamm Globulin (S) [Mass/Vol] 3.8 g/dL Normal [facility] Comment on above: Performed By: #### C MP, LIPID #### [facility] [address] [address] [address] Lamberto Hamm Glucose [Mass/Vol] 100 mg/dL Normal 74-106 [facility] Comment on above: Performed By: #### C MP, LIPID #### [facility] [address] [address] [address] Lamberto Hamm Potassium [Moles/Vol] 4.0 mmol/L Normal 3.5-5.1 [facility] Comment on above: Performed By: #### C MP, LIPID #### [facility] [address] [address] [address] Lamberto Hamm Protein [Mass/Vol] 7.6 g/dL Normal 6.4-8.2 [facility] Comment on above: Performed By: #### C MP, LIPID #### [facility] [address] [address] [address] Lamberto Hamm Sodium [Moles/Vol] 138 mmol/L Normal 136-145 [facility] Comment on above: Performed By: #### C MP, LIPID #### [facility] [address], [place] [address] Dr. Lamberto Hamm Urea nitrogen [Mass/Vol] 14.0 mg/dL Normal 7.0-18.0 [facility] Comment on above: Performed By: #### C MP, LIPID #### [facility] [address], [place] [address] Dr. Lamberto Hamm Urea nitrogen/Creatinine [Mass ratio] 19.4 mg/mg Normal [facility] Comment on above: Performed By: #### C MP, LIPID #### [facility] [address], [place] [address] Dr. Lamberto Hamm Vital Signs Date Time Vital Sign Value Performing Clinician Facility 08-14-2023 10:42-0400 Body height 152.4 cm DO Joce Ball Work Phone: [facility] 08-14-2023 10:42-0400 Body mass index (BMI) [Ratio] 26.9 kg/m2 DO Joce Ball Work Phone: [facility] 08-14-2023 10:42-0400 Body weight 62.59 kg DO Joce Ball Work Phone: [facility] 08-14-2023 10:42-0400 Diastolic blood pressure 73 mm[Hg] DO Joce Ball Work Phone: [facility] 08-14-2023 10:42-0400 Heart rate 56 /min DO Joce Ball Work Phone: [facility] 08-14-2023 10:42-0400 Systolic blood pressure 170 mm[Hg] DO Joce Ball Work Phone: [facility] 07-23-2023 15:47-0400 Body height 152.4 cm DO Joce Ball Work Phone: [facility] 07-23-2023 10:08-0400 Body height 152.4 cm [facility] 07-23-2023 10:08-0400 Body mass index (BMI) [Ratio] 27.1 kg/m2 [facility] 07-23-2023 10:08-0400 Body weight 63.04 kg [facility] 07-23-2023 10:08-0400 Diastolic blood pressure 73 mm[Hg] [facility] 07-23-2023 10:08-0400 Heart rate 55 /min [facility] 07-23-2023 10:08-0400 Systolic blood pressure 169 mm[Hg] [facility] 12-05-2022 09:30-0400 Body height 152.4 cm Vidya Pereyra Other [facility] [employer] Other 12-05-2022 09:30-0400 Body mass index (BMI) [Ratio] 27.77 kg/m2 Vidya Pereyra Other [facility] Other 12-05-2022 09:30-0400 Body weight 64.5 kg Vidya Pereyra Other [facility] Other 12-05-2022 09:30-0400 Diastolic blood pressure 81 mm[Hg] Vidya Pereyra Other [facility] Other 12-05-2022 09:30-0400 Systolic blood pressure 145 mm[Hg] Vidya Pereyra Other [facility] Other 10-16-2022 10:30-0400 Body height 152.4 cm Vidya Pereyra Other [facility] Other 10-16-2022 10:30-0400 Body mass index (BMI) [Ratio] 27.85 kg/m2 Vidya Pereyra Other [facility] Other 10-16-2022 10:30-0400 Body weight 64.68 kg Vidya Pereyra Other [facility] Other 10-16-2022 10:30-0400 Diastolic blood pressure 81 mm[Hg] Vidya Pereyra Other [facility] Other 10-16-2022 10:30-0400 Respiratory rate 12 /min Vidya Pereyra Other [facility] Other 10-16-2022 10:30-0400 Systolic blood pressure 179 mm[Hg] Vidya Pereyra Other [facility] Other 09-15-2022 12:00-0400 Body height 152.4 cm Vidya Pereyra Other [facility] Other 09-15-2022 12:00-0400 Body mass index (BMI) [Ratio] 28.51 kg/m2 Vidya Pereyra Other [facility] Other 09-15-2022 12:00-0400 Body weight 66.23 kg Vidya Pereyra Other [facility] Other 09-15-2022 12:00-0400 Diastolic blood pressure 77 mm[Hg] Vidya Pereyra Other [facility] Other 09-15-2022 12:00-0400 Systolic blood pressure 157 mm[Hg] Vidya Pereyra Other [facility] Other 09-06-2022 13:30-0400 Body height 152.4 cm Sneha Jaramillo Other [facility] Other 09-06-2022 13:30-0400 Body mass index (BMI) [Ratio] 28.12 kg/m2 Sneha Jaramillo Other [facility] Other 09-06-2022 13:30-0400 Body weight 65.32 kg Sneha Jaramillo Other [facility] Other 09-06-2022 13:30-0400 Diastolic blood pressure 68 mm[Hg] Sneha Ella Other [facility] Other 09-06-2022 13:30-0400 Systolic blood pressure 118 mm[Hg] Sneha Ella Other [facility] Other 06-15-2022 10:45-0400 Body height 152.4 cm Vidya Pereyra Other [facility] Other 06-15-2022 10:45-0400 Body mass index (BMI) [Ratio] 27.92 kg/m2 Vidya Pereyra Other [facility] Other 06-15-2022 10:45-0400 Body temperature 97.9 [degF] Vidya Pereyra Other [facility] Other 06-15-2022 10:45-0400 Body weight 64.86 kg Vidya Pereyra Other [facility] Other 06-15-2022 10:45-0400 Diastolic blood pressure 68 mm[Hg] Vidya Pereyra Other [facility] Other 06-15-2022 10:45-0400 SaO2% (BldA) [Mass fraction] 96 % Vidya Pereyra Other [facility] Other 06-15-2022 10:45-0400 Systolic blood pressure 132 mm[Hg] Vidya Pereyra Other [facility] Other 04-10-2022 11:00-0500 Body height 152.4 cm Vidya Pereyra Other [facility] Other 04-10-2022 11:00-0500 Body mass index (BMI) [Ratio] 27.53 kg/m2 Vidya Pereyra Other [facility] Other 04-10-2022 11:00-0500 Body weight 63.96 kg Vidya Pereyra Other [facility] Other 04-10-2022 11:00-0500 Diastolic blood pressure 72 mm[Hg] Vidya Pereyra Other [facility] Other 04-10-2022 11:00-0500 SaO2% (BldA) [Mass fraction] 96 % Vidya Pereyra Other [facility] Other 04-10-2022 11:00-0500 Systolic blood pressure 138 mm[Hg] Vidya Pereyra Other [facility] Other Encounters Encounter Date Encounter Type Care Provider Facility Start: 08-14-2023 End: 08-14-2023 ambulatory DO Joce [email or web address].ly Work Phone: [facility] Work Phone: Start: 08-14-2023 End: 08-14-2023 Patient encounter procedure DO Joce Lingua.ly Work Phone: [facility] Work Phone: Start: 07-23-2023 End: 07-23-2023 Departed Referred DO Joce Ball Work Phone: [facility] Work Phone: Start: 07-23-2023 End: 07-23-2023 ambulatory DO Joce Ball Work Phone: [facility] Work Phone: Start: 07-23-2023 End: 07-23-2023 Patient encounter procedure [facility] Work Phone: Start: 05-15-2023 End: 05-15-2023 ambulatory [facility] Start: 04-27-2023 Non-patient / Non-visit [facility] [employer] Work Phone: Start: 03-02-2023 End: 03-02-2023 ambulatory EULA NIETO [facility] Start: 12-18-2022 End: 12-18-2022 ambulatory [facility] Start: 12-11-2022 End: 12-11-2022 ambulatory Vidya Pereyra Other [employer] Other Start: 12-11-2022 Telephone encounter Vidya Pereyra [facility] Start: 12-05-2022 Office outpatient vi sit 15 minutes Vidya Pereyra [facility] Start: 12-05-2022 End: 12-05-2022 ambulatory DO Joce Moreno Work Phone: [facility] Work Phone: Start: 12-05-2022 End: 12-05-2022 Departed Referred DO Joce Lingua[employer]ly Work Phone: [facility] Work Phone: Start: 10-27-2022 End: 10-27-2022 ambulatory [facility] Start: 10-16-2022 End: 10-16-2022 ambulatory Vidya Pereyra Other [facility] Other Start: 10-16-2022 Office outpatient vi sit 15 minutes Vidya Pereyra [facility] Start: 09-15-2022 End: 09-15-2022 ambulatory Vidya Pereyra Other [facility] Other Start: 09-15-2022 Office outpatient vi sit 15 minutes Vidya Pereyra [facility] Start: 09-12-2022 End: 09-12-2022 ambulatory Vidya Pereyra Other [facility] Other Start: 09-12-2022 Telephone encounter Vidya Pereyra [facility] Start: 09-06-2022 End: 09-06-2022 ambulatory Sneha Agrawalleidy Other [facility] Other Start: 09-06-2022 Office outpatient vi sit 15 minutes Snehawilliam Jaramillo [facility] Start: 06-15-2022 End: 06-15-2022 ambulatory Vidya Pereyra Other [facility] Other Start: 06-15-2022 Office outpatient vi sit 15 minutes Vidya Pereyra [facility] Start: 04-10-2022 End: 04-10-2022 ambulatory Vidya Pereyra Other [facility] Other Start: 04-10-2022 Office outpatient vi sit 15 minutes Vidya Pereyra [facility] Start: 01-31-2022 Adult health examination Sneha Ella Other [facility] Other Start: 01-28-2022 End: 01-28-[address] VIDYA PEREYRA Facility:[facility] Start: 12-07-2021 End: 12-08-[address] VIDYA PEREYRA Facility:[facility] Procedures Date Procedure Procedure Detail Performing Clinician Start: 07-23-2023 Urine culture DO Benjam in [place] Work Phone: Start: 05-15-2023 Follow-up visit Follow-up SAVANNA RAMOS Start: 09-14-2014 Screening mammography J tim Ella Other Start: 11-14-2012 General examination of patient Sneha Agrawalleidy Other Screening for malign ant neoplasm of breast Sneha Ella Other Plan of Treatment Date Care Activity Detail Author Start: 08-14-2023 Patient referral [facility] Work Phone: Start: 07-24-2023 Bacteria identified in Urine by Culture [facility] Start: 07-23-2023 Bacteria identified in Urine by Culture [facility] Start: 12-05-2022 Bacteria identified in Urine by Culture [facility] CT Abdomen and Pelvi s W contrast IV [facility] Patient referral [facility] Work Phone: Immunizations Immunization Date Immunization Notes Care Provider Fa cili 11-12-2019 influenza virus vaccine, split virus (incl. purified surface antigen) Sneha Jaramillo Other [facility] [employer] Other 11-12-2019 influenza virus vaccine, unspecified formulation [facility] 12-04-2018 influenza virus vaccine, split virus (incl. purified surface antigen) Sneha Jaramillo Other [facility] [employer] Other 12-04-2018 influenza virus vaccine, unspecified formulation [facility] 10-10-2018 pneumococcal Conjuga te, unspecified formulation; Translations: [Need for prophylactic vaccination against Streptococcus pneumoniae (pneumococcus)] Sneha Jaramillo Other [facility] [employer] Other 10-10-2018 pneumococcal polysaccharide vaccine, 23 valent Sneha Jaramillo Other [facility] 11-22-2017 influenza virus vaccine, split virus (incl. purified surface antigen) Sneha Jaramillo Other [facility] [employer] Other 11-22-2017 influenza virus vaccine, unspecified formulation [facility] 06-07-2017 pneumococcal conjuga te vaccine, 13 valent Sneha Jaramillo Other [facility] 12-12-2016 influenza virus vaccine, split virus (incl. purified surface antigen) Sneha Jaramillo Other [facility] [employer] Other 12-12-2016 influenza virus vaccine, unspecified formulation [facility] Payers Date Payer Category Payer Self-pay [id number] 1957 Medicare [id number] 1957 Unknown [id number] 1940 Unknown [id number] 1940 Unknown [id number] Medicare Medicare Outpatient [id number] 3A [id number] Unknown [id number] [id number] Unknown [id number] [id number] Social History Date Type Detail Facility Sex Assigned At [facility] Other Start: 1940 Sex Assigned At Female F [facility] Clinical Notes 04-10-2022 to 05-15-2023 Note Date & Type Note Facility 05-15-2023 Note [facility] CARDIOLOGY PROGR ESS NOTE HPI: Ana Mays is a 82 y.o. female here for HTN re-evaluation HPI Patient here for 3 mo follow up atypical chest pain, hypertension. Patient adamantly denies any cardiac complaints or concerns. Patient denies any chest pain or shortness of breath. Patient denies any lower extremity edema, orthopnea, or proximal nocturnal dyspnea. No near-syncope or syncope. No dizziness or lightheadedness. Lexiscan stress test and echocardiogram were performed. Lexiscan stress test with was without evidence of ischemia. Echocardiogram demonstrated mild valvular abnormalities, but otherwise, was unremarkable. Review of Systems Musculoskeletal: Positive for muscle weakness. Neurological: Positive for headaches. All other systems reviewed and are negative Visit Vitals BP 110/70 (BP Location: Left arm, Patient Position: Sitting, BP Cuff Size: Adult) Pulse 56 Resp 12 Ht 1.549 m (5' 1 ) Wt 63.8 kg (140 lb 9.6 oz) SpO2 98% BMI 26.57 kg/m??? Smoking Status Never BSA 1.66 m??? Allergies Allergen Reactions Bactrim [Sulfamethoxazole-Trimethoprim] Sulfa (Sulfonamide Antibiotics) Medications: Current Outpatient Medications on File Prior to Visit Medication Sig Dispense Refill losartan (Cozaar) 100 mg tablet Take 1 [...] normal Last lab values have been reviewed A/P: Primary hypertension Hypertension is well controlled in office and pt states b/p at home and review of b/p log shows HTN is well controlled at home Continue losartan 100 mg and norvasc 5 mg Atypical chest pain Patient denies recurrence Most recent stress test is negative -Optimize medical management -Aggressive risk factor modification -Plan of care discussed with patient. All questions were answered. Patient voices understanding and is agreeable with current plan. -Patient was educated on red flag symptoms. Strict return precautions were provided. Patient verbalizes understanding -Follow-up in cardiology clinic in 3 months, or sooner as needed Savanna Ramos MD [facility] 03-02-2023 Note Hypertension is much improved in office and pt states b/p at home and review of b/p log shows HTN is well controlled at home Continue losartan 100 mg and norvasc 5 mg Repeat renal function after increased losartan dose remained stable [facility] 03-02-2023 Note [facility] CARDIOLOGY PROGR ESS [...] Continue meds as prescribed, RTC 3-6 months [facility] 03-02-2023 Note Patient here for 3 [...] All other systems reviewed and are negative. [facility] 12-18-2022 Note Cardiology Clinic No te [...] rate -Repeat echocardiogram in 1 year for MELQUIADES CARPIO -Optimize medical management -Aggressive risk factor modification -Plan of care discussed with patient. All questions were answered. Patient voices understanding and is agreeable with current plan. -Patient was educated on red flag symptoms. Strict return precautions were provided. Patient verbalizes understanding -Follow-up in cardiology clinic in 3 months, or sooner as needed Savanna Ramos MD Interventional Cardiology [facility] 12-18-2022 Note Patient here for fol [...] All other systems reviewed and are negative. [facility] 12-05-2022 Evaluation note Encounter Date Diagnosis Assessment Notes Nov, Dysuria (ICD-10 - R30.0) Culture pending. Treat empirically in meantime. Improve hydration. [facility] Other 09-22-2023 NoteNew patient here to establish care. Ref from Dr. Pereyra for hypertension and dizziness. She was seen in [facility] ED in Sep [address] Pereyra ordered stress test but she has declined for now. She denies recurrent chest pain and SOB. Dizziness is improving she says. Does feel occasional palpitations. Review of Systems Cardiovascular: Positive for palpitations. Musculoskeletal: Positive for muscle weakness. Neurological: Positive for dizziness, headaches and light-headedness. All other systems reviewed and are negative.[facility] 10-27-2022 NoteCardiology Clinic Note Chief Complaint: [...] or concerns. Savanna Ramos MD Interventional Cardiology [facility]09-11-2023 Evaluation note* Encounter Date Diagnosis Assessment Notes [...] differential - notes visual issues (cataracts, glaucoma, MD) and labile bps at home and at office. Will proceed with the referral to Cardiology. [facility] Other 08-11-2023 Evaluation note* Encounter Date Diagnosis Assessment Notes Treatment Notes Treatment Clinical Notes Sep, Essential (primary) hypertension (ICD-10 - I10) Add losartan to the Norvasc for improved BP control. Limit salt and walk daily as able. Apr, Chest pain, unspecified (ICD-10 - R07.9) Chest pain Discussed symptoms. Pt agrees to stress test. Will arrange at the hospital to r/o CAD. [facility] Other 08-02-2023 Evaluation note* Encounter Date Diagnosis [...] and call next week with updated numbers [facility] Other 05-11-2023 Evaluation note* Encounter Date Diagnosis Assessment Notes Treatment Notes Treatment Clinical Notes June, Bronchitis (ICD-10 - J40) Encouraged her to continue mucinex, rest, fluids. Call or ER if not improving. [facility] Other 03-06-2023 Evaluation note* Encounter Date Diagnosis [...] symptoms. Any developing patterns. Stay well hydrated. [facility] Other Evaluation noteNo InformationNort [employer] Other Evaluation noteNo assessment information available [facility] Work Phone: Evaluation note* Diagnosis Onset Date Resolution Status Abdominal pain acute [facility] Work Phone: Evaluation note* Diagnosis Onset Date Resolution Status Abdominal pain acute Abdominal pain acute [facility] Work Phone: History general Narrative - Reported* Type Description Date Medical History Esophageal reflux Medical History high cholesterol Surgical History tubal ligation Hospitalization History see above [facility] Other Hospital Discharge instructionsAmbulatory Orders* Referral to Gastroenterology Time Frame: 08/14/23, Location: None Selected [facility] Work Phone: Summary Purpose Family History Relationship Condition Age at Onset Recorded Date/T collin brother Unknown daughter Malignant neoplasm Unknown father Heart disease Unknown Unknown family member Unknown Not Specified Unknown Relationship Condition Age at Onset Recorded Date/T collin brother Unknown daughter Malignant neoplasm Unknown father Heart disease Unknown Unknown family member Unknown mother Unknown Advance Directives Advance Directive Response Recorded Date/ Time Advance Directives No January 8:55pm Reason for Referral Reason *FU 10/23 Dr. Janki jerez at [facility]. - Last OV and today, [place] [facility] on 09/12 - lightheadedness, uncontrolled HTN Diagnosis 1 Essential (primary) hypertension (I10) Referral Organization [facility] Referring Provider First Name Vidya Referring Provider Last Name Hafsa Referring Provider Specialty Family [facility] Referred Organization [facility] Referred Provider Alcon Cormier V Referred Address [address],[place], [place],[address] Referred Provider Specialty Cardiovascul ar Disease Referral Priority Routine General Notes Veronica Mahan 11:39:32 AM >received today, attachments made, notes locked, referral faxed Clinical Notes P: [id number] F: [id number] Chief Complaint and Reason for Visit Chief Complaint Amb Documentation possible UTI Reason for Visit Abdominal pain Chief Complaint possible UTI r10.9 follow up testing Reason for Visit Abdominal pain Abdominal pain Additional Source Comments INFORMATION SOURCE (unrecogn ized section and content) DATE CREATED AUTHOR 02/01/2022 [facility] DATE CREATED AUTHOR AUTHOR'S ORGANIZ ATION 07/27/2023 [facility] DATE CREATED AUTHOR AUTHOR'S ORGANIZ ATION 08/02/2023 [facility] REASON FOR VISIT (unrecogniz ed section and content) BLOOD PRESSURESore Throat- C OVID NegativeBPER Follow UpTBHBP/ Stress Test Discussionuti, pressure on bladderurine culture Care Teams (unrecognized sec tion and content) Team Status: Active Member Role Status Ashok Moreno DO Primary Care Provider Active Team Status: Active Member Role Status Ashok Moreno DO Primary Care Provider Active Start: April 27, 2023 SUMI Larson Attending Provider Active Start : April 27, 2023 Team Status: Inactive Member Role Status Ashok Moreno DO Primary Care Provider Active Start: July 23, 2023 End: July 23, 2023 Vidya Pereyra MD Attending Provider Active St art: July 23, 2023 End: July 23, 2023 Team Status: Inactive Member Role Status Ashok Moreno DO Primary Care Provider Active Vidya Pereyra MD Attending Provider Active Team Status: Active Member Role Status Ashok Pereyra MD Primary Care Provider Active Team Status: Inactive Member Role Status Ashok Pereyra MD Primary Care Provide r, Attending Provider Active Start: August 14, 2023 End: August 14, 2023 Goals (unrecognized section and content) Goals may [...] BE BASED ON THE PRIMARY CLINICAL RECORDS. [facility] [employer] [facility]. provides no warranty or guarantee of the accuracy or completeness of information in this document.
[2023-08-29 09:19] LABS: Estimated GFR (African America >60 (>=60); Estimated GFR (Non-African Ame >60 (>=60)
== END 2023-08-29 08:54 | disposition home or self-care (01) ==
LOC: LAB 08:54
PROVIDERS: PCP Family Medicine; Visit Provider Family Medicine
DX: R10.9 Unspecified abdominal pain (principal); R10.30 Lower abdominal pain, unspecified
CPT/HCPCS: 36415; 74177; 82565; Q9967

== ENCOUNTER 2024-05-13 11:23 | Outpatient (OUT) | payer MEDICARE, SELFPAY ==
--- NOTE | 2024-05-13 11:26 | MM_ITS ---
Patient Name: BETY JOHNSON MR#: [id number] : 1940 Exam Date: 05/13/2024 Ordering Doctor: DR Vidya Pérez M.D. RADIOLOGY REPORT PROCEDURE: MM TOMOSYNTHESIS SCREENING BI COMPARISON: MM TOMOSYNTHESIS SCREENING BI, 04/06/2023. MG MAMM SCREEN 3D CHRIS CAD, 12/07/2021. MG MAMM SCREEN CHRIS W CAD, 10/18/2018. MG MAMM CHRIS SCRN W CAD DIG, 12/16/2012. INDICATIONS: Screening Calculator Name NCI Breast Cancer Risk Assessment Tool 5 Year Breast Cancer Risk 1.90% Lifetime Breast Cancer Risk 2.80% Personal Breast Cancer No Personal Ovarian Cancer No Treatments None Family Cancers None LOCATION: [facility] BREAST COMPOSITION: The breasts are heterogeneously dense,which may obscure small masses. FINDINGS: BILATERAL BREAST: No significant suspicious finding. DIAGNOSTIC CATEGORY 1--NEGATIVE. RECOMMENDATIONS: ROUTINE MAMMOGRAM AND CLINICAL EVALUATION IN 12 MONTHS. PLEASE NOTE: A NORMAL MAMMOGRAM DOES NOT EXCLUDE THE POSSIBILITY OF BREAST CANCER. A CLINICALLY SUSPICIOUS PALPABLE LUMP SHOULD BE BIOPSIED. Dictated by: Rey Venegas DO on 05/13/2024 at 12:30 Approved by: Rey Venegas DO on 05/13/2024 at 12:36
== END 2024-05-13 11:24 | disposition home or self-care (01) ==
LOC: MAMMO 11:23
PROVIDERS: PCP Family Medicine; Visit Provider Family Medicine
DX: Z12.31 Encounter for screening mammogram for malignant neoplasm of breast (principal)
CPT/HCPCS: 77063; 77067

== ENCOUNTER 2024-12-30 08:47 | Outpatient (OUT) | payer MEDICARE, SELFPAY ==
--- OUTSIDE RECORDS SUMMARY | 2024-12-29 05:57 | XMS_ITS | Continuity of Care Document ---
Author Organization [facility] Address [address] [place] [address] Phone Care Team Providers Care Picking Belt Operator Name Role Phone Vidya Pérez MD Primary Care Provider Vidya Pérez MD Attending Provider [phone] Care Teams Patient Care Team Team Status: Active Member Role/Relationship Status Dates Vidya Pérez MD Primary Care Provider Active Patient Care Team Team Status: Inactive Member Role/Relationship Status Dates Vidya Pérez MD Primary Care Provider Active Start: December 29, 2024 End: December 29, 2024Vidya Pérez MDAttending ProviderActiveStart: December 29, 2024 End: December 29, 2024 Chief Complaint and Reason for Visit Chief Complaint Admit Date Wellness December 29, 2024 10:18am Reason for Visit Admit Date Essential (primary) hypertension Novembe r 2024 10:18am High cholesterol December 29, 2024 10:18am Allergies, Adverse Reactions, Alerts Allergen Type Severity Reaction Last Updated Verified Status Comments sulfamethoxazole Allergy Unknown Hives December 29, 2024 9:49am Yes Active Onset Date: 08/31/2014 Social History Smoking Status Status Start Date End Date Date of Observa tion Never smoked tobacco (finding) September 08, 2024 10:31am Observation Status Observation Response Date of Response Legal Sex Female (finding) [facility] 1940 Family History Relationship Condition Age at Onset Recorded Date/T collin brother Unknown daughterMalignant neoplasmUnknownfatherHeart diseaseUnknownDeceasedUnknownfamily memberDeceasedUnknownmotherDeceasedUnknown Problems Active Problems Problem Diagnosis/Recorded Date Onset Date Stat us High cholesterol July 23, 2023 9:18am Unknown A ctive Essential (primary) hypertension July 23, 2023 9:18a m Unknown Active Inactive/Resolved Problems Problem Diagnosis/Recorded Date Onset Date Stat us Ingrown toenail of right jadon t with infection October 04, 2023 9:41am Unknown Resolved Piriformis syndrome of right side July 08, 2024 2:03p m Unknown Resolved Sinusitis, acute maxillary June 11, 2024 12:23pm Unkno wn Resolved Abdominal pain July 23, 2023 9:33am Unknown Res olved Medications Medication Status Dose Units Route Directions Qty Days Refills S tart Date Stop Date End Date Reason(s) Instructions Adherence Amlodipine 10 mg tablet Discontinued 0 .ROUTE.MDKTOSI413Plftdtvu2023 4:31pmFebruary 2024 12:42pmTAKE 1 TABLET BY MOUTH DAILYAmlodipine 10 mg tabletDiscontinued0.ROUTE.TZHJTVU438 March 21, 2024 12:42pmAugust 2024 1:03pmTAKE 1 TABLET BY MOUTH DAILY Ciprofloxacin Hcl 250 mg emapsgSnmylgswfaon386JGTAAamen tkqtn774Jhpbjs 5th, 2025 11:00pmNovember 2024 10:33amAmlodipine 10 mg tabletDiscontinued0.ROUTE .XJFUTGR440Unxjlt2024 1:03pmNov2024 8:19amTAKE 1 TABLET BY MOUTH DAILYAmlodipine 10 mg tabletActive0.ROUTE.YEFZABE436Bchrvhsh2024 8:19amTAKE 1 TABLET BY MOUTH DAILYComplies with drug therapyLosartan 50 mg uvxfhuXvrhem196EKZSUskkp039Kojgfwec 17th, 2025 1:06pmFreeTextSi tablet once a day; Note: Source Status: Taking; Refills: 2; Qty: 30 Tablet; Provider: Beto Dasilva ( )Complies with drug therapyOmeprazole 20 mg capsule,delayed release(DR/EC)Ahgqdchwgviv26HJJWPdrcsOzdho 2023 11:00pm April 27, 2023 1:04pmOmeprazole 20 mg capsule,delayed release(DR/EC) Tggoprdptjyn91LOIKPncql695Escwg 2023 1:04pmJuly 2023 10:03am Amlodipine 10 mg btjmmzQwbifwytbkio41LDSCBgzui367Vhqpmi 2023 9:38am December 25, 2023 4:31pmAmoxicillin-Pot Clavulanate (Augmentin) 500-125 mg dozuzlEbqbsrsziewz2JVQTUBjdhe wpxwf641Lwxiea 2023 11:00pmMay 2024 12:58pmCefdinir 300 mg wacjwscTzvzrdcgpxxr248EBQVEegne vigcd229Fivyi 2024 11:00pmJune 2024 8:12amMeloxicam 7.5 mg tabletDiscontinued7.9RJLLWushd805 July 07, 2024 11:00pmNovember 2024 10:33amTizanidine 2 mg tablet Zsdxvhykxnms7JBPYUcpei at bedtime as needed for muscle jvdeivfdsq455Uhek 2nd, 2025 11:00pm[facility] 20[facility] 10:34amLatanoprost 0.005 % dropsActiveDROPS OPHTHALMICPikeville Medical Center 2024 12:00amComplies with drug therapyOmeprazole 20 mg capsule,delayed release(DR/EC)Cflvld20HZNPMigqi998Lnpgxekn 2024 10:44am Complies with drug therapySimvastatin 20 mg gyppkmImgaof44DMJHVhsms760Khmrrycn 2024 10:44amFreeTextSi tablet in the evening Orally Once a day; Note: Source Status: Taking; Provider: Beto Dasilva ( )Complies with drug therapyLosartan 50 mg znmmrtSbxyvwdnnoet182QYHUKfwhjKfbp 2023 11:00pm December 22, 2024 1:06pmFreeTextSi tablet once a day; Note: Source Status: Taking; Refills: 2; Qty: 30 Tablet; Provider: Beto Dasilva ( )Amlodipine 5 mg xqchffUodyupxfowbf5XLWVUFuxlwMody 2023 11:00pm October 04, 2023 9:39amFreeTextSig: TAKE 1 TABLET BY MOUTH EVERY DAY FOR 90 DAYS; Note: Source Status: Taking; Refills: 1;Qty: 90 Tablet; Provider: Beto Dasilva ESimvastatin 20 mg hskqkjRigdwxjwxxcv55KDCWUqcrlQyae 2023 11:00pm August 14, 2023 10:03amFreeTextSi tablet in the evening Orally Once a day; Note: Source Status: Taking; Provider: Beto Dasilva ( ) Nitrofurantoin Monohyd/M-Cryst (Macrobid) 100 mg mcuxilyOcyfuqjbghne394OVFZVpwom cfkid576Xvys 2023 11:00pmJune 05, 2024 12:59pmmust administer with a meal/foodOmeprazole 20 mg capsule,delayed release(DR/EC)Adeiyznyzrfv91VLLFSpiqs 900July 2023 10:02amNovember 2024 10:44amSimvastatin 20 mg tablet Iusxkfntzaxb41SORSDsiqv619Wzit 2023 10:02amNovember 2024 10:44am FreeTextSi tablet in the evening Orally Once a day; Note: Source Status: Taking; Provider: Beto Dasilva ( ) Immunizations Immunization Event Date Not Given Reason Dose Number Household Appliances Salesperson Lot Number Reason(s) Given Vaccine Information Statement (VIS) Detail Administration Location influenza, unspecified formulation December 12, 2016 influenza, unspecified formulationOctober 2017influenza, unspecified formulationOctober 2018influenza, unspecified formulationOctc[facility] 2019 Pneumococcal Conjugate Vaccine, 13 valentMay 2017Pneumococcal Polysacc. Vaccine, 23 valentSeptember 2018 Vital Signs Vital Reading Result Reference Range Collection Date/Time Height 60 [in_i] December 29, 2024 9:33mqOhvjry62.04 kgNovember 2024 9:48amHeart Rate75 /ons31-160BcfjtpgrDecember 29, 2024 9:48amRespiratory rate16 /yyu39-34EfvwjsbyDecember 29, 2024 9:48amOxygen saturation by Pulse luhxgdkj464 %95-100December 29, 2024 9:48amBP Jgmccdjn144 mm[Hg]100-140Nov 24th, 2025 9:48amBP Ilgpkjsbz64 mm[Hg]60-100December 29, 2024 9:48amBMI (Body Mass Index)27.1 kg/u5OxvoyfbqDecember 29, 2024 9:48am Advance Directives Advance Directive Response Recorded Date/ Time Advance Directives No September 08 9:31am Insurance Providers Guarantor Ana Mays Address [address] [facility] [address]Gsbfvib Info.Home Phone: Coverage Status Update:2024 Payer Group Member ID Coverage Type Subscriber Relationship to Subscriber Effective Date Expiration Date Medicare [id number] H Sassaman Id: [id number] [address] [facility] [address] Home Phone: SelfMedicare Outpatient Id: Cristy [id number] H Sassaman Id: [id number] [address] [facility] [address] Home Phone: Self Encounters Encounter Location(s) Arrival/Admit Date Discharge/Departure Date Discharge/Departure Disposition Provider(s) Departed Physician/ Provider Office Visit -[facility] December 29, 2024 10:18am December 29, 2024 10:51am Discharged to home care or self care (routine discharge) Vidya Pérez MD Recent Diagnosis Onset Date Admit Date Essential (primary) hypertension Unknown December 29, 2024 10:18am High cholesterol Unknown December 29, 2024 10:18am Assessments Diagnosis Onset Date Resolution Status Admit Date Essential (primary) hypertension acuteDecember 29, 2024 10:18amHigh cholesterolacuteDecember 29, 2024 10:18am Plan of Treatment Future Tests Future scheduled test information is unavailable Pending Tests Test Name Ordered Date Scheduled Date Comprehensive Metabolic Panel December 29 10:44am Future Visits Future appointment information is unavailable Future Procedures Procedure Name Ordered Date Scheduled Date Complete Blood Count Auto Diff December 29 10:44am Lipid PanelNov2024 10:44amMicroAlb Creat Ratio,UNovember 2024 10:46am Future Medications Future medication information is unavailable Patient Instructions Patient instructions are unavailable
--- OUTSIDE RECORDS SUMMARY | 2024-12-30 08:54 | XMS_ITS | Clinical Summary ---
Author Organization [facility] Address [address] [place] [address] Care Team Providers Care Rooms Director Name Role Phone Vidya Pérez MD Primary Care Provider [phone] Allergies Active AllergyReactionsCriticalityNoted DateComments Sulfamethoxazole-Sgydetstetwm82/22/2023Sulfa (Sulfonamide Antibiotics)10/27/2022 Medications MedicationSigDispense QuantityRefillsLast FilledStart DateEnd DateStatus simvastatin (Zocor) 20 mg tablet Take 20 mg by mouth at bedtime.11/29/2021ctive omeprazole (PriLOSEC) [address] capsule Take 20 mg by mouth in the morning.10/07/2022ctive amLODIPine (Norvasc) 5 mg tablet Indications:Essential hypertensionTake 1 tablet (5 mg) by mouth in the morning. 90 tablet ctive Additional Information Patient taking differently: 10 mgoral Daily, Reported on 11/05/2023 losartan (Cozaar) 100 mg tablet Indications:Benign hypertensive heart disease without congestive heart failure TAKE 1 TABLET BY MOUTH EVERY DAY DIRECTED 90 tablet ctive Active Problems ProblemNoted DateDiagnosed DateAbdominal pain11/05/2023Ingrown toenail of right foot with ufklsbnzp45/30/2024rimary hypertension Assessment & Plan (03/02/2023 6:56 PM EST): Hypertension is much improved in office and pt states b/p at home and review of b/p log shows HTN is well controlled at home Continue losartan 100 mg and norvasc 5 mg Repeat renal function after increased losartan dose remained stable Encounters DateTypeDepartmentCare JrhiGirhcxgrnhf07/04/2025Refill [facility] [address] [place] [address] Savanna Ramos MD Benign hypertensive heart disease without congestive heart failurefrom Last 3 Months Family History Medical HistoryRelationNameCommentsCancerDaughterCoronary artery diseaseFather RelationNameStatusCommentsDaughterOtherFather Social History Tobacco UseTypesPacks/DayYears UsedDateSmoking Tobacco: NeverSmokeless Tobacco: Never Tobacco Cessation:Counseling Given: Not Answered Alcohol UseStandard Drinks/WeekCommentsNot Currently0 (1 standard drink = 0.6 oz pure alcohol)UT Safety & EnvironmentAnswerDate RecordedFear of Current or Ex-PartnerNot on file03/30/2023Emotionally AbusedNot on file03/30/2023hysically AbusedNot on file03/30/2023Sexually AbusedNot on file03/30/2023hysically or Sexually AbusedNot on file03/30/2023CommentsUnknownSex and Gender InformationValueDate RecordedSex Assigned at BirthNot on fileLegal SexFemale 10/17/2022 2:58 PM EDTGender IdentityNot on fileSexual OrientationNot on file Last Filed Vital Signs Vital SignReadingTime TakenCommentsBlood Vdvxfosq902/5809 1:51 PM EDT Xhfpv7823/30/2024 1:51 PM EDTTemperature--Respiratory Hxft0710/10/2023 10:06 AM EDTOxygen Ksqufapgqz20%11/05/2023 1:51 PM EDTInhaled Oxygen Concentration-- Valozs17.1 kg (137 lb)11/05/2023 1:51 PM JFELhuzhe768.9 cm (5' 1 )11/05/2023 1:51 PM EDTBody Mass Index25.8911/05/2023 1:51 PM EDT Plan of Treatment Health MaintenanceDue DateLast DoneCommentsMedicare Annual Wellness (AWV) 3Depression Nmogscgfv45/17/1955Adult Gapeule9211/21/1964Fall Risk Gzqoynhaz42/17/2008COVID-19 Vaccine ( season)3, 10/27/2021, 05/18/2021, Additional history existsInfluenza Vaccine (#1) /, 11/16/2021, 11/10/2020, Additional history exists Pneumococcal Vaccine: 50+ TiwooJfvehpleu57/05/2019, 06/07/2017Zoster Vaccines Daqxvxwqj12/10/2024, 05/09/2023HIB VaccinesAged OutNo longer eligible based on patient's age to complete this topicHPV VaccinesAged OutNo longer eligible based on patient's age to complete this topicIPV VaccinesAged OutNo longer eligible based on patient's age to complete this topicMeningococcal B VaccineAged OutNo longer eligible based on patient's age to complete this topicMeningococcal VaccineAged OutNo longer eligible based on patient's age to complete this topic Rotavirus VaccinesAged OutNo longer eligible based on patient's age to complete this topic Insurance Care Teams Team MemberRelationshipSpecialtyStart DateEnd Date Vidya Pérez MD [facility] PCP - General10/26/22
--- OUTSIDE RECORDS SUMMARY | 2024-12-30 08:54 | XMS_ITS | Clinical Summary ---
Author Organization [facility] Address [address] [place] [address] Care Team Providers Care Sports Official Name Role Phone Vidya Pérez MD Primary Care Provider Allergies No known active allergies Medications MedicationSigDispense QuantityRefillsLast FilledStart DateEnd DateStatus losartan (Cozaar) 100 MG tablet Take 100 mg by mouth Daily as directedActive amLODIPine (Norvasc) 5 MG tablet Take 5 mg by mouth in the morning.Active simvastatin (Zocor) 20 MG tablet Take 20 mg by mouth08/14/2023ctive omeprazole (PriLOSEC) [address] capsule Take 20 mg by mouth Daily08/14/2023ctive latanoprost (Xalatan) 0.005 % ophthalmic solution INSTILL 1 DROP INTO EACH EYE AT WHEBPEA8009/26/2023ctive Active Problems No known active problems Encounters DateTypeDepartmentCare IbkpLsnxmksgsqx37/23/2025 11:20 AM EDTProcedure Visit [facility] [address] [place] [address] Ronn Talbot DPM Acquired deformity of left toe (Primary Dx); Pain due to onychomycosis of toenails of both feet11/27/2024amboo flowsheet [facility] [address] [place] [address] Ronn Talbot DPM 11/27/2024Travelfrom Last 3 Months Family History Medical HistoryRelationNameCommentsHeart diseaseFatherHypertensionFather ArthritisMotherRelationNameStatusCommentsFatherDeceasedMotherDeceased Social History Tobacco UseTypesPacks/DayYears UsedDateSmoking Tobacco: Unknown Tobacco Cessation:Counseling Given: Yes Alcohol UseStandard Drinks/WeekCommentsDefer0 (1 standard drink = 0.6 oz pure alcohol)CommentsUnknownSex and Gender InformationValueDate RecordedSex Assigned at BirthNot on fileLegal CqvRrkakg64/15/2023 7:17 PM EDTGender Identity Not on fileSexual OrientationNot on file Last Filed Vital Signs Vital SignReadingTime TakenCommentsBlood Pqejtmjh532/8009 3:20 PM EDT Laexr6214 3:20 PM EDTTemperature--Respiratory Tpdq4550 11:16 AM EDTOxygen Saturation--Inhaled Oxygen Concentration--Lfpeqz02.7 kg (136 lb) 11/27/2024 11:16 AM VOELqofei517.9 cm (5' 1 )11/27/2024 11:16 AM EDTBody Mass Index25.710 11:16 AM EDT Plan of Treatment DateTypeDepartmentCare Team (Latest Contact Info)Gocvmmunhnq33/22/2026 11:40 AM ESTProcedure Visit [facility] [address] [facility] [address] [place] [address] Ronn Talbot, [place] [address] [facility] [address] [place] [address] Insurance Care Teams Team MemberRelationshipSpecialtyStart [place] Vidya Pé[place] [address] [place] [address] [facility] - [facility]10/31/23
--- OUTSIDE RECORDS SUMMARY | 2024-12-30 08:56 | XMS_ITS | CCD ---
Author Organization [facility] Care Team Providers Care Orthophoto Tech/Draftsman Name Role Phone DR VIDYA PEREYRA Primary [...] Unavailable DO Joce Moreno Primary Care Provider [phone] MD Vidya Pereyra Attending Provider [phone] DO Joce Moreno Primary Care Provider [phone] MD Vidya Pereyra Attending Provider EULA NIETO Attending Unavailable SAVANNA RAMOS Attending Unavailable SAVANNA RAMOS Attending Unavailable Vidya Pereyra MD Primary Care Provider [phone] Vidya Pereyra MD Primary Care Provider Vidya Pereyra MD Primary Care Provider [phone] Vidya Pereyra MD Attending Provider Vidya Pereyra Attending Unavailable Vidya Pereyra Primary Care Unavailable Vidya Pereyra Admitting Unavailable Vidya Pereyra MD Primary Care Provider RONN TALBOT Attending Unavailable RONN TALBOT Attending Unavailable RONN TALBOT Attending Unavailable RONN TALBOT Attending Unavailable RONN TALBOT Attending Unavailable Allergies Allergy ClassificationReported Allergen(s)Allergy TypeDate of OnsetReaction(s) Facility (1 source)Sulfonamides (Antibiotic)Drug allergy (disorder)[facility]ository (8 sources)Sulfacetamide / SulfurDrug AllergySaint [facility] GoTable Other (6 sources)Sulfamethoxazole / TrimethoprimDrug Vcbiilj61-79-4282ZfbeqccBktss GoTable Other (1 source)patient allergy list reviewed by nurse or physiciaPropensity to adverse qzeiiuhsk07-01-7068Uhojpni:[facility] GoTable Other (1 source)Allergies ReconciledPropensity to adverse reactionsSaint [facility]'s [facility] GoTable Other (4 sources)SulfacetamideDrug Hbgtbjj70-63-6027SyhjeRizwltmsiParkwood Hospital (5 sources)Sulfamethoxazole; Translations: [sulfamethoxazole]Drug Allergy 11-00-1413VlpakLqzjucfszParkwood Hospital (4 sources)SulfurDrug Kvlvkqo44-42-3033SaymoTqgdjczuvParkwood Hospital (4 sources)TrimethoprimDrug Covhvcy39-64-7025WzqnzZkrtycamyParkwood Hospital (1 source)Sulfamethoxazole / Trimethoprim; Translations: [SULFAMETHOXAZOLE-TRIMETHOPRIM]Drug Jmhpkst28-44-4694CdwunamrjnC[facility] (1 source)Sulfonamides (Antibiotic); Translations: [SULFA (SULFONAMIDE ANTIBIOTICS)]Propensity to adverse reactions to drug (disorder)10-27-2022 [facility] Medications Current Medications MedicationDrug Class(es)DatesSig (Normalized)Sig (Original)amLODIPine 10 mg oral tablet (20 sources)Dihydropyridine Calcium Channel BlockerStart: 12-25-2023 End: 15-87-2784nbgx 1 tablet by mouth once dailyStart: 10-04-2023 End: 21-87-2524wyiq 1 tablet by mouth once dailyAmlodipine 10 mg tablet Discontinued 10 MG PO Daily October 04, 2023 10:38am December 25, 2023 5:31pmStart: 07-23-2023 End: 83-73-9059mtux 1 tablet by mouth once dailyAmlodipine 5 mg tablet Discontinued 1 TAB PO Daily July 23, 2023 12:00am October 04, 2023 10:39am FreeTextSig: TAKE 1 TABLET BY MOUTH EVERY DAY FOR 90 DAYS; Note: Source Status: Taking; Refills: 1; Qty: 90 Tablet; Provider: Hafsa Dasilva Eazithromycin 250 mg oral tablet (1 source)Macrolide AntimicrobialStart: 92-28-0119Bthmwdukqejp 250 MG as directed Orally 2 tabs po today, then 1 tab daily x 4 more days for 5 June, Activeciprofloxacin 250 mg oral tablet (2 sources)Quinolone AntimicrobialStart: 22-63-5174bcnm 1 tablet by mouth every twelve hoursCiprofloxacin HCl 250 MG 1 tablet Orally every 12 hrs for 5 day(s) Nov, Activelatanoprost 0.05 mg/ml ophthalmic solution (10 sources)Prostaglandin AnalogStart: 08-54-6427hule 1 drop(s) into the eye(s) at bedtimelatanoprost (Xalatan) 0.005 % ophthalmic solution INSTILL 1 DROP INTO EACH EYE AT BEDTIME 09/26/2023 Activelisinopril 10 mg oral tablet (4 sources)Angiotensin Converting Enzyme Inhibitortake 1 tablet by mouth every twenty-four hoursLisinopril 10 MG 1 tablet Orally Once a day for 90 days Active losartan potassium 50 mg oral tablet (20 sources)Angiotensin 2 Receptor BlockerStart: 26-09-6106gfce 1 tablet by mouth once dailyStart: 02-23-0225ptzs 1 tablet by mouth once dailyLosartan Active 100 MG PO Daily July 23, 2023 12:00am FreeTextSi tablet once a day; Note: Source Status: Taking; Refills: 2; Qty: 30 Tablet; Provider: Hafsa Dasilva ( )take 1 tablet by mouth once dailylosartan (Cozaar) 100 MG tablet Take 100 mg by mouth Daily as directed Activetake 1 tablet by mouth every twenty-four hoursLosartan Potassium 50 MG 1 tablet once a day for 30 days Active take 1 tablet by mouth every twenty-four hoursLosartan Potassium 25 MG 1 tablet Orally Once a day for 30 days Activemeclizine hydrochloride 12.5 mg oral tablet (2 sources)AntiemeticStart: 85-39-8860qefo 1 tablet by mouth every eight hours Meclizine HCl 12.5 MG 1 tablet as needed Orally every 8 hrs for 10 days Sep, Activemeloxicam 7.5 mg oral tablet (3 sources)Nonsteroidal Anti-inflammatory DrugStart: 97-73-2661vbpk 1 tablet by mouth once dailyomeprazole 20 mg delayed release oral capsule (20 sources)Proton Pump InhibitorStart: 04-27-2023 End: 88-77-3820tqws 1 capsule by mouth once dailyomeprazole (PriLOSEC) [address] capsule Take 20 mg by mouth Daily 08/14/2023 Activetake 1 capsule by mouth once dailyOmeprazole 20 MG Take 1 capsule by mouth once daily for 90 Activetake 1 tablet by mouth once dailyOmeprazole 20 MG 1 tablet 30 minutes before morning meal Orally Once a day Activesimvastatin 20 mg oral tablet (20 sources)HMG-CoA Reductase InhibitorStart: 07-23-2023 End: 74-10-7871nvverllbldp (Zocor) 20 MG tablet Take 20 mg by mouth 08/14/2023 Activetake 1 tablet by mouth every twenty-four hoursSimvastatin 20 MG 1 tablet in the evening Orally Once a day ActivetiZANidine 2 mg oral tablet (3 sources)Central alpha-2 Adrenergic AgonistStart: 40-80-7294xhmb 1 tablet by mouth once daily at bedtime as needed Completed/Discontinued Medications MedicationDrug Class(es)DatesSig (Normalized)Sig (Original)acetaminophen 325 mg / HYDROcodone bitartrate 5 mg oral tablet (1 source)Opioid Agonisttake 1 tablet by mouth every six hoursHYDROcodone- Acetaminophen 5-325 MG 1 tablet as needed Orally every 6 hrs Not-Taking amoxicillin 500 mg / clavulanate 125 mg oral tablet (5 sources)Penicillin-class AntibacterialStart: 10-04-2023 End: 21-54-2036pevt 1 tablet by mouth twice dailyAmoxicillin-Pot Clavulanate (Augmentin) 500-125 mg tablet Discontinued 1 TAB PO Twice daily October 04, 2023 12:00am June 05, 2024 1:58pmcefdinir 300 mg oral capsule (4 sources)Cephalosporin AntibacterialStart: 06-05-2024 End: 85-16-3818odfk 1 capsule by mouth twice dailyCefdinir 300 mg capsule Discontinued 300 MG PO Twice daily June 05, 2024 12:00am July 08, 2024 9 :12amnitrofurantoin, macrocrystals 25 mg / nitrofurantoin, monohydrate 75 mg oral capsule (8 sources)Nitrofuran AntibacterialStart: 07-23-2023 End: 34-17-4935usyq 1 capsule by mouth twice daily at mealtimeNitrofurantoin Monohyd/M-Cryst (Macrobid) 100 mg capsule Discontinued 100 MG PO Twice daily 2023 12:00am June 05, 2024 1:59pm must administer with a meal/food Problems Active Problems Problem ClassificationProblemDateDocumented DateEpisodic/ChronicAbdominal pain (16 sources)Abdominal pain; Translations: [Unspecified abdominal pain]Onset: [id number] foot deformities (6 sources)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; Translations: [Acquired deformities of toe(s), unspecified,left foot]79-67-5784IojlhapnYptmgkm obstructive pulmonary disease and bronchiectasis (1 source)Bronchitis, not specified as acute or chronicEpisodicConditions associated with dizziness or vertigo (6 sources)Benign paroxysmal positional vertigo; Translations: [Benign paroxysmal vertigo, unspecified ear]Onset: 66-28-8677OldqnvgpMoqyvwozg of lipid metabolism (7 sources)Hyperlipidemia, unspecified; Translations: [Hyperlipidemia]Onset: 86-99-7189XqruvovV Codes: Struck by; against (1 source)Striking against or struck by other objects, initial encounter; Translations: [STRIKING AGNST/STRUCK OTH OBJ INIT]Onset: 49-02-9277Kidsyzti Esophageal disorders (3 sources)Gastroesophageal reflux disease without esophagitis; Translations: [Gastro-esophageal reflux disease without esophagitis]ChronicEssential hypertension (18 sources)Essential (primary) hypertension; Translations: [Essential hypertension]Onset: 01-89-3066XcqaprnHqycxbiiyemwd symptoms and ill-defined conditions (4 sources)Dysuria; Translations: [Dysuria]Onset: 78-31-0583UdrqgworNfwohrwj; including migraine (4 sources)Headache; including migraine; Translations: [HEADACHE UNSPECIFIED] Onset: 45-09-4617Cermofuayndyp and screening for infectious disease (3 sources)Vaccination given; Translations: [Encounter for immunization]Episodic Mycoses (6 sources)Onychomycosis; Translations: [Tinea unguium]84-76-7991Sktxyqhx Neoplasms of unspecified nature or uncertain behavior (1 source)Neoplasm of uncertain behavior of skin; Translations: [Neoplasm of uncertain behavior of skin]06-52-5018SsspgzapRqystlnoouoclf (3 sources)Osteoarthritis; Translations: [Polyosteoarthritis, unspecified]Onset: 13-36-0701DakolvtEotdw acquired deformities (2 sources)Deformity of metatarsal; Translations: [Unspecified acquired deformity of left lower leg]72-43-1084LdmgvjgyTizqi aftercare (1 source)Other penitentiary (current) drug therapy; Translations: [OTH SPOUT TENDER CURRENT DRUG THERAPY]Onset: 50-00-8612JnafelglJxsge connective tissue disease (2 sources)Pain of toes of bilateral feet; Translations: [Pain in right toe(s)] 57-77-2662YmgvsztrWubla connective tissue disease (2 sources)Pain in left foot; Translations: [Pain in left foot]01-31-2024 EpisodicOther injuries and conditions due to external causes (3 sources)History of fall; Translations: [History of falling]EpisodicOther nervous system disorders (4 sources)Right-sided piriformis syndrome; Translations: [Lesion of sciatic nerve, right lower limb]44-45-5671MngzmgqNxbzp screening for suspected conditions (not mental disorders or infectious disease) (1 source)Encounter for screening mammogram for malignant neoplasm of breast; Translations: [ENC SCR MAMMO MALIG NEOPLASM BREAST]Onset: 19-26-9378Dlhejbin Other skin disorders (5 sources)Infection of toenail; Translations: [Ingrowing nail]10-04-2023 EpisodicOther skin disorders (1 source)Ingrowing nail; Translations: [Ingrowing nail]41-01-9171QahxctlnQfxgd upper respiratory infections (4 sources)Acute maxillary sinusitis; Translations: [Acute maxillary sinusitis, unspecified]89-87-3237AalyjfhhCwukg infection (2 sources)Verruca plantaris; Translations: [Plantar wart]04-78-1744Vixytmai Past or Other Problems Problem ClassificationProblemDateDocumented DateEpisodic/ChronicAcute bronchitis (3 sources)Acute bronchitis; Translations: [Acute bronchitis, unspecified]Onset: 63-47-6709IfxlqsyeDgsdhwti; including migraine (1 source)Headache; Translations: [Headache]Onset: 25-76-6178Yfbxlrmn Inflammatory diseases of female pelvic organs (3 sources)Acute vaginitis; Translations: [Acute vaginitis]Onset: 09-14-2014 EpisodicNonspecific chest pain (7 sources)Chest pain; Translations: [Chest pain, unspecified]Onset: 04-20-2014 EpisodicOther gastrointestinal disorders (3 sources)Heartburn; Translations: [Heartburn]Onset: 51-68-7356RcyplehqOuziu injuries and conditions due to external causes (1 source)Closed fracture; Translations: [Closed fracture of unspecified bone] Onset: 84-07-0234AvhezhksUkbcjajlizn; intervertebral disc disorders; other back problems (2 sources)Low back pain; Translations: [Lumbago]Onset: 13-40-5751Dexyhxzv Results Test NameValueInterpretationReference RangeFacilityClara [facility]ass Medical Center Cultureon 09-08-2024 Bacteria identified Cx Nom (U)ORGANISM: Escherichia coli (O:ESCCOL) Spring Count >100,000 ORGANISM: Citrobacter koseri (O:CITKOJaydon) Spring Count 20,000 Aerobic ОЛЕГ Charge (NMIC56) SUSCEPTIBILITY ORGANISM: O:ESCCOL ANTIBIOTIC INTERPRETATION ОЛЕГ Amikacin S <16 Amoxacillin/K Clavulanate S <8 Ampicillin R >16 Ampicillin/Sulbactam S 88/4 Aztreonam S <4 Cefazolin S <2 Cefepime S <2 Ceftazidime S <1 Ceftazidime/Avibactam S <4 Ceftolozane/Tazobactam S <2 Ceftriaxone S <1 Cefuroxime S <4 Ciprofloxacin S <0.25 Ertapenem S <0.5 Gentamicin S <2 Levofloxacin S <0.5 Meropenem S <1 Meropenem/Vaborbactam S <2 Nitrofurantoin S <32 Piperacillin/Tazobactam S <8 Tetracycline S <4 Tigecycline S <2 Tobramycin S <2 Trimethoprim/Sulfamethoxazole S <0.5 Aerobic ОЛЕГ Charge (NMIC56) SUSCEPTIBILITY ORGANISM: O:CITKOS ANTIBIOTIC INTERPRETATION ОЛЕГ Amikacin S <16 Amoxacillin/K Clavulanate S <8 Ampicillin/Sulbactam S <4 Aztreonam S <4 Cefazolin S <2 Cefepime S <2 Ceftazidime S <1 Ceftazidime/Avibactam S <4 Ceftolozane/Tazobactam S <2 Ceftriaxone S <1 Cefuroxime S <4 Ciprofloxacin S <0.25 Ertapenem S <0.5 Gentamicin S <2 Levofloxacin S <0.5 Meropenem S <1 Meropenem/Vaborbactam S <2 Nitrofurantoin S <32 Piperacillin/Tazobactam S <8 Tetracycline S <4 Tigecycline S <2 Tobramycin S <2 Trimethoprim/Sulfamethoxazole S <0.5 S = SUSCEPTIBLE I = INTERMEDIATE R = RESISTANT BLANK = DATA NOT AVAILABLE, OR DRUG NOT ADVISABLE OR TESTED R* = RESISTANCE DUE TO EXTENDED SPECTRUM BETA-LACTAMASES ESBL = EXTENDED SPECTRUM BETA-LACTAMASE TFG = THYMIDINE-DEPENDENT STRAIN GERARDO = BETA-LACTAMASE POSITIVE IB = INDUCIBLE BETA-LACTAMASE. APPEARS IN PLACE OF 'S' WITH SPECIES KNOWN TO POSSESS INDUCIBLE BETA-LACTAMASES. POTENTIALLY THEY MAY BECOME RESISTANT TO ALL B-LACTAM DRUGS. PERFORMED BY: [place] [address] PATHOLOGIST TANNING SOLUTION MAKER DAVID BRO M.D.[facility] Physician GroupComment on above: Performed By: #### CUU #### [place] [address] USAOffice Visiton [id number]-up [id number] Ana Mays 1940 F Date Provider Department [facility] Family History Problem Relation Age of Onset Coronary artery disease Father Cancer Daughter Family Status - Relation Status Age at Father Daughter Other Level of Service:09309 SC OFFICE/OUTPATIENT ESTABLISHED LOW MDM 20 [facility] HospitalEstim[facility] glomerular filtration rate (GFR) non- Americanon 35-51-7812OLE/1.73 sq M.predicted among non-blacks MDRD (S/P/Bld) [Vol rate/Area]mL/min/{1.73_m2}>=60[facility] - Chemistry and Chemistry - challengeon 56-60-0498Ryiokahzgi [Mass/Vol]0.81 mg/dL0.55-1.02[facility] HospitalGFR/1.73 sq M.predicted MDRD (S/P/Bld) [Vol rate/Area]mL/min/{1.73_m2}>=60[facility] - Chemistry and Chemistry - challengeon 07-23-2023 Bilirubin Ql (U)NegativeSt. Elizabeth HospitalGlucose (U) [Mass/Vol] NegativeSt. Elizabeth HospitalKetones Ql (U)[facility] HospitalpH (U)5 [pH][facility] Westpecific gravity (U) [Rel density]1.000St. Elizabeth HospitalUrobilinogen (U) [Mass/Vol]0.2 mg/dLSt. Elizabeth HospitalLaboratory - Specimen informationon 70-29-5239Rullzhajcz (U)clearSt. [facility] Hospital Color (U)yellowSt. Elizabeth HospitalLaboratory - Urinalysison 04-17-7100Hlgkkucto esterase Test strip Ql (U)NegativeSt. Elizabeth HospitalNitrite Ql (U)NegativeSt. Elizabeth HospitalProtein Ql (U) NegativeSt. Elizabeth HospitalNo Panel Informationon 81-22-8880Ikxaf Occult BloodNegativeSt. Elizabeth HospitalUrine culture routine Ordered By: Vidya Pereyra on 96-45-8962Jqemwoij identified Cx Nom (U)[address] [facility] HospitalOffice Visiton 83-32-7140Dujlhg-up visit [id number] Ana Mays 1940 F Date Provider Department Center 05/15/2023 3848-SAVANNA RAMOS [facility] Family History Problem Relation Age of Onset Coronary artery disease Father Cancer Daughter Family Status - Relation Status Age at Father Daughter Other Level of Service:82391 SC OFFICE/OUTPATIENT ESTABLISHED LOW MDM 20 MIN Reason for Visit and Comments: Follow-up [096639] - [facility] Visiton 74-94-6395Evmgtr-up [id number] Ana Mays 1940 Date Provider Department Center 03/02/2023 EULA MILES [facility]DA [facility] Family History Problem Relation Age of Onset Coronary artery disease Father Cancer Daughter Family Status - Relation Status Age at Father Daughter Other Level of Service:69267 SC OFFICE/OUTPATIENT ESTABLISHED LOW MDM 20 MINNoal [facility] HospitalCARDIAC CRIS ADMITon 51-50-8636UL [Catalytic activity/Vol]58 U/OKlfnnb55-097AkjBarney Children'S Medical CenterComment on above:Performed By: #### CMADM #### [facility] [address] [place] [address] Dr. Lamberto Schmidt.MB [Mass/Vol]1.23 ng/mLNormal<=3.60[facility] Comment on above:Performed By: #### CMADM #### [facility] [address] [place] [address] Dr. Lamberto HammHSTROP10.2 pg/mLNormal4.0-51.3The [facility] HospitalComment on above:Result Comment: CUT-OFF POINTS HAVE BEEN ESTABLISHED BASED ON THE FOURTH UNIVERSAL DEFINITIONS OF MYOCARDIAL INFARCTION. THE UPPER REFERENCE LIMIT (URL) OF TROPONIN, DEFINED THE 99TH PERCENTILE OF cTnI DISTRIBUTION IN A REFERENCE POPULATION, HAS BEEN CONFIRMED THE DECISION THRESHOLD FOR MD DIAGNOSIS.Performed By: #### CMADM #### [facility] [address] [place] [address] Dr. Lamberto SolanoO59 ng/mLNormal9-82[facility]'S Medical CenterComment on above: Performed By: #### CMADM #### [facility] [address] [place] [address] Dr. Lamberto Jasso AUTO DIFFon 81-44-2434NLBL #0.0 103/ulNormal0.0-0.1The [facility]igh HospitalComment on above:Performed By: #### CBC #### [facility] [address] [place] [address] Dr. Lamberto HammBasophils/100 WBC (Bld)0.5 %Normal0.2-2.0[facility] Comment on above:Performed By: #### CBC #### [facility] [address] [place] [address] Dr. Lamberto Healy #0.2 103/ulNormal0.0-0.7The [facility] HospitalComment on above: Performed By: #### CBC #### [facility] [address] [place] [address] Dr. Lamberto Delgadoosinophils/100 WBC (Bld)3.2 %Normal0.9-7.0[facility] Comment on above:Performed By: #### CBC #### [facility] [address] [place] [address] Dr. Lamberto Delgadorythrocyte distribution width (RBC) [Ratio]12.4 %Qtcpsm43.0-15.0 The [facility]igh HospitalComment on above:Performed By: #### CBC #### [facility] [address] [place] [address] Dr. Lamberto HammHematocrit (Bld) [Volume fraction]40.3 %Vkilav55.0-48.0The [facility] HospitalComment on above:Performed By: #### CBC #### [facility] [address] [place] [address] Dr. Lamberto HammHemoglobin (Bld) [Mass/Vol]13.9 g/zPJqjxyq53.0-16.0The [facility] HospitalComment on above:Performed By: #### CBC #### [facility] [address] [place] [address] Dr. Lamberto Nguyen #0.01 10e3/ulNormal0.00-0.03The [facility] HospitalComment on above:Performed By: #### CBC #### [facility] [address] [address] [address] Lamberto Nguyen %0.2 %Normal0.0-0.5The [facility] HospitalComment on above: Performed By: #### CBC #### [facility] [address] [address] [address] Lamberto Rendon #1.0 103/ulCritically low1.2-3.8[facility] Comment on above:Performed By: #### CBC #### [facility] [address] [address] [address] Lamberto Mcmullenhocytes/100 WBC (Bld)17.4 %Critically low20.5-60.0The [facility] HospitalComment on above:Performed By: #### CBC #### [facility] [address] [place] [address] Dr. Lamberto Hu DIFF REQNONormalThe [facility]igh HospitalComment on above: Performed By: #### CBC #### [facility] [address] [address] [address] Lamberto Vogt (RBC) [Entitic mass]30.8 soKuxdnz37.7-34.0The [facility] HospitalComment on above:Performed By: #### CBC #### [facility] [address] [place] [address] Dr. Lamberto Vogt (RBC) [Mass/Vol]34.5 g/sAMheeqo69.9-35.2The [facility] HospitalComment on above:Performed By: #### CBC #### [facility] [address] [place] [address] Dr. Lamberto Vogt (RBC) [Entitic vol]89.2 sACamygc66.0-99.0The [facility] HospitalComment on above:Performed By: #### CBC #### [facility] [address] [place] [address] Dr. Lamberto Hernandez #0.5 103/ulNormal0.3-0.8The Jo HospitalComment on above:Performed By: #### CBC #### [facility] [address] [address] [address] Lamberto Sappocytes/100 WBC (Bld)7.7 %Normal1.7-12.0[facility] Comment on above:Performed By: #### CBC #### [facility] [address] [place] [address] Dr. Lamberto VillaseñorUT #4.2 103/ulNormal1.4-6.5The [facility] HospitalComment on above:Performed By: #### CBC #### [facility] [address] [place] [address] Dr. Lamberto Villaseñorutrophils/100 WBC (Bld)71.0 %Dhxjtc14.0-75.0The [facility] HospitalComment on above:Performed By: #### CBC #### [facility] [address] [place] [address] Dr. Lamberto HammPlatelet mean volume (Bld) [Entitic vol]9.5 fLNormal9.5-13.5The [facility] HospitalComment on above:Performed By: #### CBC #### [facility] [address] [place] [address] Dr. Lamberto HammPLT284 103/akYxzfdk859-648Gis [facility] HospitalComment on above: Performed By: #### CBC #### [facility] [address] [place] [address] Dr. Lamberto HammRBC4.52 106/ulNormal4.20-5.40The [facility] HospitalComment on above:Performed By: #### CBC #### [facility] [address] [place] [address] Dr. Lamberto HammWBC5.9 103/ulNormal4.0-11.0The [facility] on above: Performed By: #### CBC #### [facility] [address] [place] [address] Dr. 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 No mass lesion or mass effect. No hydrocephalus. Intracranial atherosclerosis. IMPRESSION: 1. No CT evidence for acute intracranial process. 2. Mild senescent changes detailed above. Electronically authenticated by: ALINA MATOS Date: 2022-01-28 09:32 NormalThe [facility]beigh HospitalPROF 14(COMP METB)on 33-21-4373Baufbze [Mass/Vol]3.6 g/dLNormal3.4-5.0The [facility] HospitalComment on above:Performed By: #### CMP #### [facility] [address] [place] [address] Dr. Lamberto HammAlbumin/Globulin [Mass ratio]1.0 {ratio}NormalThe [facility] Jacksonment on above:Performed By: #### CMP #### [facility] [address] [place] [address] Dr. Lamberto Zambrano [Catalytic activity/Vol]84 U/TRkcmss70-848Rvl [facility]ment on above:Performed By: #### CMP #### [facility] [address] [place] [address] Dr. Lamberto Chiu [Catalytic activity/Vol]23 U/WFttewi71-00Uee [facility]ment on above:Performed By: #### CMP #### [facility] [address] [place] [address] Dr. Lamberto Higgins gap [Moles/Vol]15.1 mmol/LNormalThe [facility] Comment on above:Performed By: #### CMP #### [facility] [address] [address] [address] Lamberto HammAST [Catalytic activity/Vol]20 U/HSktxau94-42Hja [facility] HospitalComment on above:Performed By: #### CMP #### [facility] [address] [address] [address] Lamberto HammBilirubin [Mass/Vol]0.5 mg/dLNormal0.2-1.0[facility] Comment on above:Performed By: #### CMP #### [facility] [address] [address] [address] Lamberto HammCalcium [Mass/Vol]9.0 mg/dLNormal8.5-10.1[facility] Comment on above:Performed By: #### CMP #### [facility] [address] [address] [address] Lamberto HammChloride [Moles/Vol]102 mmol/COhbiob83-578Bzg [facility] Comment on above:Performed By: #### CMP #### [facility] [address] [address] [address] Lamberto HammCO2 [Moles/Vol]26.8 mmol/RZgvmlf25.0-32.0[facility] Comment on above:Performed By: #### CMP #### [facility] [address] [address] [address] Lamberto HammCreatinine [Mass/Vol]0.66 mg/dLNormal0.55-1.02The [facility] HospitalComment on above:Performed By: #### CMP #### [facility] [address] [address] [address] Orantes ChangEGFR-AF FIJIAN>60Normal>=60[facility] HospitalComment on above:Performed By: #### CMP #### [facility] [address] [address] [address] Lamberto DelgadoGFR-NON AF FIJIAN>60Normal>=60The [facility] HospitalComment on above:Performed By: #### CMP #### [facility] [address] [address] [address] Lamberto HammGlobulin (S) [Mass/Vol]3.6 g/dLNormalThMercy Health St. Joseph Warren HospitalComment on above:Performed By: #### CMP #### [facility] [address] [address] [address] Lamberto HammGlucose [Mass/Vol]103 mg/lQSqtsgl53-023JyaBarney Children'S [facility] Comment on above:Performed By: #### CMP #### [facility] [address] [address] [address] Lamberto HammPotassium [Moles/Vol]3.9 mmol/LNormal3.5-5.1[facility] Comment on above:Performed By: #### CMP #### [facility] [address] [place] [address] Dr. Lamberto HammProtein [Mass/Vol]7.2 g/dLNormal6.4-8.2[facility] Comment on above:Performed By: #### CMP #### [facility] [address] [place] [address] Dr. Lamberto HammSodium [Moles/Vol]140 mmol/CQomsdl381-269DyyBarney Children'S Medical Center Comment on above:Performed By: #### CMP #### [facility] [address] [place] [address] Dr. Lamberto HammUrea nitrogen [Mass/Vol]8.0 mg/dLNormal7.0-18.0[facility] Medical CenterComment on above:Performed By: #### CMP #### [facility] [address] [place] [address] Dr. Lamberto HammUrea nitrogen/Creatinine [Mass ratio]12.1 mg/mgNormalThMercy Health St. Joseph Warren HospitalComment on above:Performed By: #### CMP #### [facility] [address] [place] [address] Dr. Lamberto HammXR CHEST 1 Von [id number] CHEST 1 VEXAM: XR CHEST 1 V INDICATION: Dizziness. COMPARISON: None. TECHNIQUE: Single frontal view of the chest FINDINGS: Normal cardiomediastinal contours. Mild biapical pleural parenchymal scarring. No consolidative process. Probable subcentimeter calcified granuloma in the right lower lung field. No pleural effusion or pneumothorax. No acute osseous abnormality. IMPRESSION: No acute cardiopulmonary process. Electronically authenticated by: [employer] Date: 2022-01-28 09:27[facility] AUTO DIFFon [id number] #0.0 103/ulNormal0.0-0.1[facility]S Medical CenterComment on above:Performed By: #### CBC #### [facility] [address] [address] [address] Lamberto HammBasophils/100 WBC (Bld)0.5 %Normal0.2-2.0[facility] Comment on above:Performed By: #### CBC #### [facility] [address] [place] [address] Dr. Lamberto Healy #0.1 103/ulNormal0.0-0.7The [facility] HospitalComment on above: Performed By: #### CBC #### [facility] [address] [place] [address] Dr. Lamberto Delgadoosinophils/100 WBC (Bld)1.3 %Normal0.9-7.0[facility] Comment on above:Performed By: #### CBC #### [facility] [address] [place] [address] Dr. Lamberto Delgadorythrocyte distribution width (RBC) [Ratio]12.0 %Potgsy10.0-15.0 The [facility] HospitalComment on above:Performed By: #### CBC #### [facility] [address] [place] [address] Dr. Lamberto HammHematocrit (Bld) [Volume fraction]41.9 %Nniyhb05.0-48.0The [facility] HospitalComment on above:Performed By: #### CBC #### [facility] [address] [place] [address] Dr. Lamberto HammHemoglobin (Bld) [Mass/Vol]13.9 g/cNJjjruj66.0-16.0The [facility] HospitalComment on above:Performed By: #### CBC #### [facility] [address] [place] [address] Dr. Lamberto Nguyen #0.02 10e3/ulNormal0.00-0.03The [facility] on above:Performed By: #### CBC #### [facility] [address] [place] [address] Dr. Lamberto Nguyen %0.3 %Normal0.0-0.5The [facility] HospitalComchelsea hospital on above: Performed By: #### CBC #### [facility] [address] [place] [address] Dr. Lamberto Rendon #1.7 103/ulNormal1.2-3.8The [facility] HospitalComchelsea hospital on above:Performed By: #### CBC #### [facility] [address] [place] [address] Dr. Lamberto Mcmullenhocytes/100 WBC (Bld)27.0 %Nfzqet22.5-60.0The [facility] on above:Performed By: #### CBC #### [facility] [address] [place] [address] Dr. Lamberto BartonUAL DIFF REQNONormalThe [facility] HospitalComchelsea hospital on above: Performed By: #### CBC #### [facility] [address] [place] [address] Dr. Lamberto Vogt (RBC) [Entitic mass]30.5 zsTpuxxx79.7-34.0The [facility] on above:Performed By: #### CBC #### [facility] [address] [place] [address] Dr. Lamberto Vogt (RBC) [Mass/Vol]33.2 g/hJQhophm58.9-35.2The [facility] on above:Performed By: #### CBC #### [facility] [address] [place] [address] Dr. Lamberto Vogt (RBC) [Entitic vol]91.9 tULmyryh03.0-99.0The [facility] on above:Performed By: #### CBC #### [facility] [address] [address] [address] Lamberto Hernandez #0.5 103/ulNormal0.3-0.8The [facility] HospitalComment on above:Performed By: #### CBC #### [facility] [address] [address] [address] Lamberto Sappocytes/100 WBC (Bld)7.9 %Normal1.7-12.0[facility] Comment on above:Performed By: #### CBC #### [facility] [address] [place] [address] Dr. Lamberto Hough #4.0 103/ulNormal1.4-6.5The [facility] HospitalComment on above:Performed By: #### CBC #### [facility] [address] [place] [address] Dr. Lamberto Villaseñorutrophils/100 WBC (Bld)63.0 %Dpvsft56.0-75.0The [facility] HospitalComment on above:Performed By: #### CBC #### [facility] [address] [place] [address] Dr. Lamberto Lee mean volume (Bld) [Entitic vol]9.6 fLNormal9.5-13.5The [facility] on above:Performed By: #### CBC #### [facility] [address] [place] [address] Dr. Lamberto HammPLT308 103/qqBjihpt526-736Gtu [facility] HospitalComment on above: Performed By: #### CBC #### [facility] [address] [place] [address] Dr. Lamberto HammRBC4.56 106/ulNormal4.20-5.40The [facility] on above:Performed By: #### CBC #### [facility] [address] [place] [address] Dr. Lamberto HammWBC6.4 103/ulNormal4.0-11.0The [facility] HospitalComment on above: Performed By: #### CBC #### [facility] [address] [address] [address] Lamberto ZendejasID PROFILEon [id number]-HDL RATIO NORMSDayton VA Medical CenterComchelsea hospital on above:Result Comment: 3.3 - 4.4 LOW RISK 4.4 - 7.1 AVERAGE RISK 7.1 - 11.0 MODERATE RISK >11.0 HIGH RISKPerformed By: #### CMP, LIPID #### [facility] [address] [address] [address] Lamberto HammCholesterol [Mass/Vol]218 mg/dLCritically high<=200The [facility] on above:Performed By: #### CMP, LIPID #### [facility] [address] [place] [address] Dr. Lamberto HammCholesterol in HDL [Mass/Vol]77 mg/dLCritically nxhq39-88ZpzBarney Children'S Medical CenterComchelsea hospital on above:Performed By: #### CMP, LIPID #### [facility] [address] [place] [address] Dr. Lamberto HammCholesterol in LDL [Mass/Vol]121.6 mg/dLAultman Orrville HospitalComchelsea hospital on above:Performed By: #### CMP, LIPID #### [facility] [address] [place] [address] Dr. Lamberto Freemanestertoby.total/Cholesterol in HDL [Mass ratio]2.8 {ratio} NormalSelect [facility] [place] on above:Performed By: #### CMP, LIPID #### [facility] [address] [place] [address] Dr. Lamberto HammHDL NORMAL> or = 60 mg/dl - LOW CARDIOVASCULAR RISK <40 mg/dl - HIGH CARDIOVASCULAR RISKAultman Orrville HospitalComchelsea hospital on above:Performed By: #### CMP, LIPID #### [facility] [address] [place] [address] Dr. Lamberto HammLDL CALC NORMALSEE [facility] HospitalComchelsea hospital on above:Result Comment: <100 mg/dl OPTIMAL 100 - 129 mg/dl NEAR OR ABOVE OPTIMAL 130 - 159 mg/dl BORDERLINE HIGH 160 - 189 mg/dl HIGH >190 mg/dl VERY HIGH Performed By: #### CMP, LIPID #### [facility] [address] [address] [address] Lamberto HammTriglyceride [Mass/Vol]97 mg/dLNormal<=150[facility] Comment on above:Performed By: #### CMP, LIPID #### [facility] [address] [address] [address] Lamberto HammVLDL CALC19.4 mg/dLNoWilson Memorial HospitalComment on above: Performed By: #### CMP, LIPID #### [facility] [address], [place] [address] Dr. Lamberto HammMG MAMM SCREEN 3D CHRIS CADon [id number] MAMM SCREEN 3D CHRIS CAD Patient: ANA MAYS Exam Date: 12/07/2021 : 1940 Gender:F Ordering : DR VIDYA PEREYRA M.D. Admission #: [id number] Family : Order #: [id number] CLICK HERE TO VIEW EXAM RADIOLOGY REPORT [...] Treatments None Family Cancers None LOCATION: [facility] BREAST COMPOSITION: Heterogeneously dense,which may obscure [...] by: Vinicius Hernandez MD on 12/07/2021 at 13:05[facility] PROF 14(COMP METB)on 29-09-3096Lxgncxz [Mass/Vol]3.8 g/dLNormal3.4-5.0The [facility] HospitalComment on above:Performed By: #### CMP, LIPID #### [facility] [address] [place] [address] Dr. Lamberto HammAlbumin/Globulin [Mass ratio]1.0 {ratio}NormalThe [facility] HospitalComment on above:Performed By: #### CMP, LIPID #### [facility] [address] [address] [address] Lamberto Zambrano [Catalytic activity/Vol]92 U/SKtdkqk71-740Nlg [facility] HospitalComment on above:Performed By: #### CMP, LIPID #### [facility] [address] [place] [address] Dr. Lamberto Chiu [Catalytic activity/Vol]22 U/ZHctqqm22-61Rpa [facility] HospitalComment on above:Performed By: #### CMP, LIPID #### [facility] [address] [place] [address] Dr. Lamberto Higgins gap [Moles/Vol]11.0 mmol/LNormalThe [facility] Comment on above:Performed By: #### CMP, LIPID #### [facility] [address] [place] [address] Dr. Lamberto Martinez [Catalytic activity/Vol]17 U/QGinvzd23-82Czf [facility] HospitalComment on above:Performed By: #### CMP, LIPID #### [facility] [address] [place] [address] Dr. Lamberto HammBilirubin [Mass/Vol]0.6 mg/dLNormal0.2-1.0[facility] Comment on above:Performed By: #### CMP, LIPID #### [facility] [address] [place] [address] Dr. Lamberto HammCalcium [Mass/Vol]9.4 mg/dLNormal8.5-10.1[facility] Comment on above:Performed By: #### CMP, LIPID #### [facility] [address] [place] [address] Dr. Lamberto HammChloride [Moles/Vol]101 mmol/RKqrwgv82-431Eym [facility] Comment on above:Performed By: #### CMP, LIPID #### [facility] [address] [address] [address] Lamberto HammCO2 [Moles/Vol]30.0 mmol/UQhuakr93.0-32.0[facility] Comment on above:Performed By: #### CMP, LIPID #### [facility] [address] [place] [address] Dr. Lamberto HammCreatinine [Mass/Vol]0.72 mg/dLNormal0.55-1.02The [facility] HospitalComment on above:Performed By: #### CMP, LIPID #### [facility] [address] [place] [address] Dr. Lamberto DelgadoGFR-AF FIJIAN>60Normal>=60The [facility] HospitalComment on above:Performed By: #### CMP, LIPID #### [facility] [address] [place] [address] Dr. Lamberto DelgadoGFR-NON AF FIJIAN>60Normal>=60The [facility] HospitalComment on above:Performed By: #### CMP, LIPID #### [facility] [address] [place] [address] Dr. Lamberto HammGlobulin (S) [Mass/Vol]3.8 g/dLNormalThe [facility] HospitalComment on above:Performed By: #### CMP, LIPID #### [facility] [address] [place] [address] Dr. Lamberto HammGlucose [Mass/Vol]100 mg/iAGnuusb27-875Dwp [facility] Comment on above:Performed By: #### CMP, LIPID #### [facility] [address] [place] [address] Dr. Lamberto HammPotassium [Moles/Vol]4.0 mmol/LNormal3.5-5.1[facility] Comment on above:Performed By: #### CMP, LIPID #### [facility] [address] [place] [address] Dr. Lamberto HammProtein [Mass/Vol]7.6 g/dLNormal6.4-8.2[facility] Comment on above:Performed By: #### CMP, LIPID #### [facility] [address] [address] [address] Lamberto HammSodium [Moles/Vol]138 mmol/RGcwokl882-920Wod [facility] Comment on above:Performed By: #### CMP, LIPID #### [facility] [address] [address] [address] Lamberto HammUrea nitrogen [Mass/Vol]14.0 mg/dLNormal7.0-18.0The [facility] HospitalComment on above:Performed By: #### CMP, LIPID #### [facility] [address] [place] [address] Dr. Lamberto Elise nitrogen/Creatinine [Mass ratio]19.4 mg/mgNormalThe [facility] HospitalComment on above:Performed By: #### CMP, LIPID #### [facility] [address] [place] [address] Dr. Lamberto Hamm Vital Signs Date TimeVital SignValuePerforming EnuzndzlkDsprsadj21-57-1657 11:16-0400Body caeagh767.9 cmRonn Brown DPM Work Phone: [phone] [place], [place] [address]Ccxusjvhab67-81-5892 11:16-0400Body mass index (BMI) [Ratio]25.7 kg/z4Hlmwznua Brown DPM Work Phone: [phone] [place], [place] 3346010-23-2025 11:16-0400Body xaypuo25.69 kgNicda Brown DPM Work Phone: [phone] [place], [place] 3346010-23-2025 11:16-0400Respiratory rate18 /minNicda Brown DPM Work Phone: [phone] [place], [place] 3346007-31-2025 11:25-0400Body gryaaz093.9 cmNicda Brown DPM Work Phone: [facility] HospitalVylzyxjxwx92-64-3042 11:25-0400Body mass index (BMI) [Ratio]25.7 kg/x4LroammhjRonn Talbot DPM Work Phone: [facility] HospitalXbmiajklow15-05-0629 11:25-0400Body .69 kgRonn Talbot DPM Work Phone: [facility] HospitalWsqgzouzrz67-34-3959 11:25-0400Respiratory rate18 /minRonn Talbot DPM Work Phone: [facility] HospitalJxcnohpnbs78-62-5070 08:54-0400Body hgnzis823.4 cmSt[facility]06-[facility]-2025 08:54-0400Body mass index (BMI) [Ratio]26.6 kg/r1HqvowfwkwSt. Elizabeth Hospital06-03-2025 08:54-0400Body rzmabw01.8 kgSt. [facility] Hospital06-03-2025 08:54-0400Diastolic blood zdlbilmc21 mm[Hg][facility]06-03-2025 08:54-0400 Heart rate61 /[facility]06-03-2025 08:54-0400Systolic blood auxkqitk088 mm[Hg][facility]05-01-2025 13:52-0400 Body jvsbtqsdyrq52.7 [degF][facility]05-01-2025 13:52-0400Diastolic blood yctkgstr45 mm[Hg][facility] 06-05-2024 13:52-0400Heart rate81 /[facility] 06-05-2024 13:52-8939ZkA9% (BldA) [Mass fraction]98 %[facility]05-01-2025 13:52-0400Systolic blood bsuqigsa051 mm[Hg][facility]03-06-2025 11:01-0500Body .9 cmRonn Talbot DPM Work Phone: [facility] HospitalHtggefbznm13-70-0901 11:01-0500Body mass index (BMI) [Ratio]25.7 kg/c8UhliftpqRonn Talbot DPM Work Phone: [facility] HospitalWuufcyjumg72-62-5207 11:01-0500Body ykxbju99.69 kgNicholdonovan Talbot DPM Work Phone: [phone] [place], [place] [address]Zlouwjecgm40-71-0490 11:01-0500Respiratory rate16 /minRonn Brown DPM Work Phone: [phone] [place], [place] [address]Ebkdmjpkij00-74-5352 11:41-0500Body adebva218.9 cmNicholdonovan Brown DPM Work Phone: [phone] [place], [place] [address]Qfdzfrcxxg77-53-0704 11:41-0500Body mass index (BMI) [Ratio]25.7 kg/y2Qepfuzic Brown DPM Work Phone: [phone] [place], [place] [address]Ennzgbkgwz18-04-3469 11:41-0500Body sgzmqy41.69 kgRaúlholas Brown DPM Work Phone: [phone] [place], [place] [address]Dzolarwdvr96-24-3356 11:41-0500Respiratory rate18 /minRonn Brown DPM Work Phone: [phone] [address] [place], [place] [address]Yavkukwwvm16-87-7386 15:20-0400Body rkmafs824.9 cmNicgonzalodonovan Brown DPM Work Phone: [phone] [place], [place] [address]Uiofaapymk37-50-3154 15:20-0400Body mass index (BMI) [Ratio]25.7 kg/h4Marfraqf Brown DPM Work Phone: [phone] [place], [place] [address]Osjrlbaaly21-42-3984 15:20-0400Body .69 kgRaúlholdonovan Talbot DPM Work Phone: [phone])[facility] [address] [place], [place] [address]Nyeuqeenay08-84-2386 15:20-0400Diastolic blood mm[Hg]Ronn Talbot DPM Work Phone: [phone] [address] [place], [place] [address]Slwaxkowez19-68-8756 15:20-0400Heart rate74 /min Ronn Talbot DPM Work Phone: [phone] [place], [place] [address]Qqnzxdscwu88-63-8232 15:20-0400Respiratory rate18 /minRonn Brown DPM Work Phone: [phone] [place], [place] [address]Yellpuaivo40-35-9116 15:20-0400Systolic blood vamteeun138 mm[Hg]Ronn Talbot DPM Work Phone: [facility] HospitalCemkukhzmu11-24-9775 10:24-0400Body .4 cmDO Joce Ball Work Phone: [phone]08-29-2024 10:24-0400 Body mass index (BMI) [Ratio]26.5 kg/m2DO Joce Ball Work Phone: [phone]08-29-2024 10:24-0400 Body ednozq36.68 kgDO Joce Ball Work Phone: [phone] [place], [place] 5621508-29-2024 10:24-0400 Diastolic blood mm[Hg]DO Joce Ball Work Phone: [phone]08-29-2024 10:24-0400 Heart rate55 /minDO Joce Ball Work Phone: [phone] [place], [place] 5621508-29-2024 10:24-0400 Systolic blood jwxiwjxs022 mm[Hg]DO Joce Ball Work Phone: [phone]07-09-2024 10:42-0400 Body ecfrhh291.4 cmDO Joce Ball Work Phone: [phone]07-09-2024 10:42-0400 Body mass index (BMI) [Ratio]26.9 kg/m2DO Joce Ball Work Phone: [phone] [place], [place] 5621507-09-2024 10:42-0400 Body .59 kgDO Joce Ball Work Phone: [phone] [place], [place] 5621507-09-2024 10:42-0400 Diastolic blood zqqnxkxo61 mm[Hg]DO Joce Ball Work Phone: [phone] [place], [place] 5621507-09-2024 10:42-0400 Heart rate56 /minDO Joce Ball Work Phone: [phone] [place], [place] 5621507-09-2024 10:42-0400 Systolic blood mm[Hg]DO Joce Ball Work Phone: [phone] [place], [place] 5621506-17-2024 15:47-0400 Body ijltdr010.4 cmDO Joce Moreno Work Phone: [facility]06-17-2024 10:08-0400 Body aurgvp993.4 cmSt. [facility] Hospital06-17-2024 10:08-0400Body mass index (BMI) [Ratio]27.1 kg/h5GbrfbdpenSt. [facility] Hospital06-17-2024 10:08-0400Body .04 kgSt. [facility] Hospital06-17-2024 10:08-0400Diastolic blood icwwcyvo48 mm[Hg][facility] 07-23-2023 10:08-0400Heart rate55 /minSt. [facility] Hospital 07-23-2023 10:08-0400Systolic blood tcmoziee103 mm[Hg][facility]10-31-2023 09:30-0400Body .4 cmVdiya Pereyra Other [employer] Other 10-31-2023 09:30-0400Body mass index (BMI) [Ratio] 27.77 kg/x7NirmzyVidya Pereyra Other [employer] Other 10-31-2023 09:30-0400Body meoqfi11.5 kgVidya Pereyra Other [employer] Other 10-31-2023 09:30-0400Diastolic blood javiuoaw99 mm[Hg] Vidya Pereyra Other [employer] Other 10-31-2023 09:30-0400Systolic blood mm[Hg] Vidya Pereyra Other [employer] Other 09-11-2023 10:30-0400Body suayoc671.4 cmVidya Pereyra Other [employer] Other 09-11-2023 10:30-0400Body mass index (BMI) [Ratio] 27.85 kg/q9BucobfVidya Pereyra Other [employer] Other 09-11-2023 10:30-0400Body ehmody89.68 kgVidya Hafsa Other [employer] Other 09-11-2023 10:30-0400Diastolic blood mm[Hg] Vidya Pereyra Other [employer] Other 09-11-2023 10:30-0400Respiratory rate12 /minVidya Pereyra Other [employer] Other 09-11-2023 10:30-0400Systolic blood jtqzaeah389 mm[Hg] Vidya Pereyra Other [employer] Other 08-11-2023 12:00-0400Body zlzaip734.4 cmVickichasemaryam Pereyra Other [employer] Other 08-11-2023 12:00-0400Body mass index (BMI) [Ratio] 28.51 kg/h0DwpszbVidya Pereyra Other [employer] Other 08-11-2023 12:00-0400Body vbofla16.23 kgVickikojo Hafsa Other [employer] Other 08-11-2023 12:00-0400Diastolic blood fvtxvleo84 mm[Hg] Vidya Pereyra Other [employer] Other 08-11-2023 12:00-0400Systolic blood qmoyrefy713 mm[Hg] Vidya Pereyra Other [employer] Other 08-02-2023 13:30-0400Body onfnbs244.4 cmSneha Jaramillo Other [employer] Other 08-02-2023 13:30-0400Body mass index (BMI) [Ratio] 28.12 kg/d0TusftqptSneha Jaramillo Other [employer] Other 08-02-2023 13:30-0400Body lgaynt31.32 kgSneha Jaramillo Other [employer] Other 08-02-2023 13:30-0400Diastolic blood advsmfog11 mm[Hg] Sneha Jaramillo Other [employer] Other 08-02-2023 13:30-0400Systolic blood awirffxj348 mm[Hg] Sneha Jaramillo Other [employer] Other 05-11-2023 10:45-0400Body luvfns193.4 cmVidya Pereyra Other [employer] Other 05-11-2023 10:45-0400Body mass index (BMI) [Ratio] 27.92 kg/j9PsftmzVidya Pereyra Other [employer] Other 05-11-2023 10:45-0400Body nsipvqkhnfh83.9 [degF]Vidya Pereyra Other [employer] Other 05-11-2023 10:45-0400Body .86 kgVidya Pereyra Other [employer] Other 05-11-2023 10:45-0400Diastolic blood hlqovmid42 mm[Hg] Vidya Pereyra Other [employer] Other 05-11-2023 10:45-4598LwC5% (BldA) [Mass fraction]96 % Vidya Pereyra Other [employer] Other 05-11-2023 10:45-0400Systolic blood ytohetuu068 mm[Hg] Vidya Pereyra Other [employer] Other 03-06-2023 11:00-0500Body exaihd673.4 cmVidya Pereyra Other [employer] Other 03-06-2023 11:00-0500Body mass index (BMI) [Ratio] 27.53 kg/f2XxsovwVidya Pereyra Other [employer] Other 03-06-2023 11:00-0500Body gmihvo67.96 kgVidya Pereyra Other [employer] Other 03-06-2023 11:00-0500Diastolic blood duxbnyim70 mm[Hg] Vidya Pereyra Other [employer] Other 03-06-2023 11:00-6034OqO9% (BldA) [Mass fraction]96 % Vidya Pereyra Other [employer] Other 03-06-2023 11:00-0500Systolic blood fyehruke060 mm[Hg] Vidya Pereyra Other [employer] Other Encounters Encounter DateEncounter TypeCare ProviderFacilityStart: 11-27-2024 End: 32-93-5072Tbbocq flowsJia Talbot DPM Work Phone: [facility] PODIATRYStart: 11-27-2024 End: 13-40-1269Eywbfd flowsJia Talbot DPM Work Phone: [facility] PODIATRYStart: 11-27-2024 End: 55-16-8587Sskuvs outpatient visit 10 minutesRonn Talbot DPM Work Phone: [facility] CI PODIATRYComment on above:Acquired deformity of left toe (Primary Dx); Pain due to onychomycosis of toenails of both feetStart: 11-27-2024 End: 46-48-9111jjyjmtsaurTCCIOKMJ A BROWNNot AvailableStart: 09-08-2024 End: 77-31-8861Izjewkpr Emory Pereyra MD-[facility] Work Phone: Start: 09-08-2024 End: 03-98-3888jmgdchdvfrCnlson E Braun MD Work Phone: [facility] Work Phone: Start: 09-08-2024 End: 63-31-6403Lyercoj encounter procedureVidya Pereyra MD-[facility] Work Phone: Start: 09-04-2024 End: 58-43-6901Guajgk Crystal Talbot DPM Work Phone: [facility] PODIATRYStart: 09-04-2024 End: 62-97-8292Mdsckg Crystal Talbot DPM Work Phone: [facility] PODIATRYStart: 09-04-2024 End: 10-84-3260Wgzinkq encounter procedureRonn Talbot DPM Work Phone: [facility] CI PODIATRYComment on above:Acquired deformity of left toe (Primary Dx); Pain due to onychomycosis of toenails of both feetStart: 09-04-2024 End: 53-95-9089hyjffeezwxOQHCPHJJ A BROWNNot AvailableStart: 07-08-2024 End: 36-68-6773ssilwrudmmCljgghauoFirelands Regional Medical Center Work Phone: Start: 07-08-2024 End: 56-95-9076Fxnntnu encounter procedureFirsthealth Physician GroupKettering Health [facility] Work Phone: Start: 06-26-2024 End: 84-67-0969jzalhaizchEGDFEDOJ A BROWNNot AvailableStart: 06-05-2024 End: 31-77-4741doiffvkzdnUlzjzrbstFirelands Regional Medical Center Work Phone: Start: 06-05-2024 End: 19-16-3219Ajlmusp encounter procedureFirsthealth Physician [facility] Work Phone: Start: 04-10-2024 End: 65-43-7709Pqelxd Crystal Talbot DPM Work Phone: [facility] PODIATRYStart: 04-10-2024 End: [id number] Crystal Talbot DPM Work Phone: [facility] PODIATRYStart: 04-10-2024 End: 93-46-4308Uxytaul encounter procedureRonn Talbot DPM Work Phone: [facility] PODIATRYComment on above:Acquired deformity of left toe (Primary Dx); Verruca plantaris; Foot pain, left; Pain due to onychomycosis of toenails of both feetStart: 04-10-2024 End: 82-43-1028cultzolyfiGFNVYDNA A BROWNNot AvailableStart: 01-31-2024 End: 72-86-6987Kroakc flowsJia Talbot DPM Work Phone: [facility] PODIATRYStart: 01-31-2024 End: 09-99-9390Uyucuf flowsdorothyNicda Talbot DPM Work Phone: [facility] PODIATRYStart: 01-31-2024 End: 28-37-6786Nrgsro outpatient visit 15 minutesRonn Talbot DPM Work Phone: noms PODIATRYComment on above:Neoplasm of uncertain behavior of skin (Primary Dx); Acquired deformity of left toe; Pain due to onychomycosis of toenails of both feet; Verruca plantaris; Foot pain, leftStart: 01-31-2024 End: 77-30-6389nbobihlosaBGNWIEIO A BROWNNot AvailableStart: 11-05-2023 End: 43-02-8906nojccqrvaeGKCSWFL [facility] Start: 10-31-2023 End: 60-87-0141Xbdksj outpatient new 30 minutesNicda Talbot DPM Work Phone: [facility] [place] PODComment on above:Metatarsal deformity, left (Primary Dx); Acquired deformity of left toe; Onychomycosis; Toe pain, bilateralStart: 10-31-2023 End: 44-66-2632Stigdb Crystal Talbot DPM Work Phone: [facility] [place] PODStart: 10-31-2023 End: 78-98-3953Oospxvshahzad Talbot DPM Work Phone: [facility] [place] PODStart: 10-04-2023 End: 37-22-6843xrmokmkwdpBE Joce Moreno Work Phone: [facility] Work Phone: Start: 10-04-2023 End: 27-55-1482Rzjidjr encounter procedureDO Joce Moreno Work Phone: [facility] Work Phone: Start: 78-58-1335Gyl-patient / Non-visitDO Joce Moreno Work Phone: [facility] [employer] Work Phone: Start: 08-14-2023 End: 48-94-9185cduwrrdyjvDH [facility] Work Phone: [facility] Work Phone: Start: 08-14-2023 End: 59-97-1098Pwgfyxq encounter procedureDO Joce Moreno Work Phone: [facility] Work Phone: Start: 07-23-2023 End: 05-66-3780Qucenakb ReferredDO Joce Moreno Work Phone: [facility] [place] Work Phone: Start: 07-23-2023 End: 48-25-4598ywtxvbajaeAF Joce Moreno Work Phone: [facility] Work Phone: Start: 07-23-2023 End: 12-38-0528Ilgwjgb encounter procedureFirsthealth [facility] Work Phone: Start: 05-15-2023 End: 90-01-3099nlplzjpazhVKCAVRIGalion Community Hospital Start: 39-78-8627Nfo-patient / Non-visitFircarilion clinic [facility] [employer] Work Phone: Start: 03-02-2023 End: 91-31-3494ebtrgjlhqfDTEYVFBGreene Memorial Hospitaltart: 12-11-2022 End: 04-71-6236ddtrephtopJtbkey Braun Other [facility] [employer] Other Start: 95-11-4976Wcaunhebn encounterMarcia Hermes Moreno [facility]tart: 90-27-9151Itplqx outpatient visit 15 minutesMarcia Hermes Moreno Medical ClinicStart: 12-05-2022 End: 42-43-7023razgikpkdwTI Joce Moreno Work Phone: [facility] Work Phone: Start: 12-05-2022 End: 07-35-8798Wvncfeps ReferredDO Joce Moreno Work Phone: [facility] [place] Work Phone: Start: 10-16-2022 End: 62-23-9833ovcvosftnrSkfkwu Pereyra Other [employer]atomi Other Start: 39-73-8782Rfqrma outpatient visit 15 minutes Vidya Moreno [facility] ClinicStart: 09-15-2022 End: 14-10-1543htnkhbasvqKhpzlv Pereyra Other [employer] Other Start: 85-99-3643Wrtdds outpatient visit 15 minutes Vidya Moreno [facility] ClinicStart: 09-12-2022 End: 35-13-8487knmykjkqdkPiijtb Pereyra Other [employer] Other Start: 39-45-3864Tnlgadtns encounterMarkojo Moreno Medical ClinicStart: 09-06-2022 End: 56-31-7492nunfrejhgfQzmvuqvz Rohrbacher Other [employer]atomi Other Start: 51-24-0463Xpgwcz outpatient visit 15 minutes Sneha [facility]ves [facility] ClinicStart: 06-15-2022 End: 52-58-0215ehvkbbnynuQmkoav Pereyra Other [employer]atom[employer] Other Start: 41-66-3007Nzdklr outpatient visit 15 minutes Vidya Moreno [facility] ClinicStart: 04-10-2022 End: 27-47-0341qcqvbcqucdAzkubc Pereyra Other [employer]atomi Other Start: 34-52-3190Zmtrwt outpatient visit 15 minutes Vidya Moreno Medical ClinicStart: 66-21-3578Xyfql health examination Sneha Jaramillo Other [employer] Other Start: 01-28-2022 End: 76-03-3420shdwdqdgptHY MARCIA E BRAUNFacility:H5Mvkdc: 12-07-2021 End: 85-41-5963hculaebhurXVKennedy PEREYRAFacility:H1 Procedures DateProcedureProcedure DetailPerforming ClinicianStart: 23-47-7167Ncdre adam CORONEL Joce Moreno Work Phone: Start: 26-89-8170Zbkwyk-up visitFollow-upMOHAMAD ALGHOTHANIStart: 15-80-6854Flgtqqkth mammographySneha Jaramillo Other Start: 15-36-1619Spgqvrk examination of patient Sneha Jaramillo Other Screening for malignant neoplasm of breastLoriifer Ella Other Plan of Treatment DateCare ActivityDetailAuthorStart: 11-27-2024 End: 64-59-0345Keonsum encounter pylkopwlu59/23/2025 11:20 AM EDT Procedure Visit [facility] [address] [place] [address] Ronn Talbot, ORALIA [address] [address] Acquired deformity of left toe (Primary Dx); Pain due to onychomycosis of toenails of both feetNOMS CI PODIATRYComment on above:Acquired deformity of left toe (Primary Dx); Pain due to onychomycosis of toenails of both feetStart: 64-08-9520Reolgkhh identified in Urine by CultureUrine [facility] Start: 41-61-6598Dshrg [facility] Hospitaltart: 09-04-2024 End: 15-23-6826Ogluadt encounter sleteozxg43/31/2025 11:30 AM EDT Procedure Visit [facility] [address] [place] [address] Ronn Talbot DPM [address] [address] Acquired deformity of left toe (Primary Dx); Pain due to onychomycosis of toenails of both feetNOMS CI PODIATRYComment on above:Acquired deformity of left toe (Primary Dx); Pain due to onychomycosis of toenails of both feetStart: 06-26-2024 End: 05-22-0263Ltmmrky encounter /22/2025 11:00 AM EDT Procedure Visit [facility] [address] [facility] [address] [place] [address] Ronn Talbot, DPM [address] [address] [facility] CI PODIATRYStart: 04-10-2024 End: 11-25-4537Xjpusfr encounter procedureNOMS CI PODIATRYComment on above: Acquired deformity of left toe (Primary Dx); Verruca plantaris; Foot pain, left; Pain due to onychomycosis of toenails of both feetStart: 01-31-2024 End: 23-37-7133Tnuyrse encounter /26/2024 11:10 AM EST Procedure Visit [facility] [address] [address] Ronn Talbot, DPM [address] [address] Acquired deformity of left toe (Primary Dx); Pain due to onychomycosis of toenails of both feetNOMS CI PODIATRYComment on above:Acquired deformity of left toe (Primary Dx); Pain due to onychomycosis of toenails of both feetStart: 01-10-2024 End: 77-36-6201Nednxsc encounter /05/2024 10:30 AM EST Office Visit [facility] [address] [facility] [address] [place] [address] Ronn Talbot, DPM [address] [address] [facility] CI PODIATRYStart: 19-26-2803Buyxhhp [facility] Work Phone: Start: 00-30-7581Xaimros [facility] Work Phone: Start: 63-17-1443Fiujdckz identified in Urine by [facility] Centertart: 44-81-1596Yscpkvbc identified in Urine by [facility] Centertart: 75-71-8496Axqkgkqf identified in Urine by [facility] CenterCT Abdomen and Pelvis W contrast [facility] Medical CenterPatient EducationExercises for sciatic painDoctors Hospital Work Phone: Patient referralDoctors Hospital Work Phone: Immunizations Immunization DateImmunizationNotesCare WzqkgoshValhbuep70-91-1364razalzkyr virus vaccine, split virus (incl. purified surface antigen)Sneha Jaramillo Other [employer] Other [id number] virus vaccine, unspecified formulationSt. [facility]10-30-2019influenza virus vaccine, split virus (incl. purified surface antigen)Sneha Jaramillo Other [employer] Other [id number] virus vaccine, unspecified formulationSt. [facility] Hospital09-05-2019pneumococcal Conjugate, unspecified formulation; Translations: [Need for prophylactic vaccination ag ainst Streptococcus pneumoniae (pneumococcus)]Sneha Jaramillo Other [employer] Other [id number] polysaccharide vaccine, [address] [facility]10-18-2018influenza virus vaccine, split virus (incl. purified surface antigen)Sneha Agrawalleidy Other noSatomi Other [id number] virus vaccine, unspecified formulationSt. [facility]05-03-2018pneumococcal conjugate vaccine, [address] [facility]11-07-2017influenza virus vaccine, split virus (incl. purified surface antigen)Sneha Agrawalleidy Other no[employer]atomi Other [id number] virus vaccine, unspecified formulationSt. [facility] Payers DatePayer CategoryPayerPolicy [id number]-[id number] [id number] Health InsuranceAARP .[id number] [facility] [id number] 2023-Present [address] [place] [address] [id number] 2008Medicare [id number] [id number] 1960 [id number] [id number] [id number] [id number] [id number] [id number] 2..840.1.300344.3.57[id number] 2.16.840.1.371186.3.57[id number] 2..840.1.821660.3.579.2.1259MedicareMedicare [id number] 2..[id number] Social History DateTypeDetailFacilitySex Assigned At [facility] [employer] Other Start: 92-37-9062Dgd Assigned At BirthFeUniversity Hospitals Geneva Medical Centertart: 46-33-2436Sxaonyk smoking status NHISTobacco smoking consumption unknownNOMO HealthcareStart: 10-31-2023 End: 62-36-0962Vqohrcrwy beverage intakeDeferNOMO HealthcareStart: 81-79-6784Kfb assigned at birthNot on fileSEVIER VALLEY HOSPITAL HealthcareStart: 06-05-2024 End: 15-18-6672Fgjjbct smoking status NHISNever smoked tobacco (finding) [facility]tart: 06-05-2024 End: 45-94-6791FvbCxvnum (finding)[facility] Westtart: 26-07-8169GzcBtedatIRZOPrisma [facility] Clinical Notes 04-10-2022 to 11-27-2024 Note Date & PlzhRnijEppgiact32-01-6988 History of Present illness Narrative* Ronn Talbot, DPM - 11/27/2024 11:20 AM EDT Patient: Ana Mays : 1940 PCP: Vidya Pereyra MD SUBJECTIVE This is a 83 y.o. female that presents today with a CC of elongated, thick nails. Pt states nails have been elongated and thick for many years and cause pain with ambulation in shoegear. Pt has tried previous treatment with minimal relief. Pt presents today for nail care and treatment. Patient also has issue with left 4th 5th digits with rubbing and uses toe spacers daily and some irritation with discussion of sx In the past and use of spacers with positive improvement. Allergies: No Known Allergies Past Medical History: No past medical history on file. Medications: Current Outpatient Medications: amLODIPine (Norvasc) 5 MG tablet, Take 5 mg by mouth in the morning., Disp: , Rfl: latanoprost (Xalatan) 0.005 % ophthalmic solution, INSTILL 1 DROP INTO EACH EYE AT BEDTIME, Disp: ,Rfl: losartan (Cozaar) 100 MG tablet, Take 100 mg by mouth Daily as directed, Disp: , Rfl: omeprazole (PriLOSEC) [address] capsule, Take 20 mg by mouth Daily, Disp: , Rfl: simvastatin (Zocor) 20 MG tablet, Take 20 mg by mouth, Disp: , Rfl: Social History: Social History Socioeconomic History Marital status: Spouse name: Not on file Number of children: Not on file Years of education: Not on file Highest education level: Not on file Occupational History Not on file Tobacco Use Smoking status: Unknown Smokeless tobacco: Not on file Substance and Sexual Activity Alcohol use: Defer Drug use: Defer Sexual activity: Not on file Other Topics Concern Not on file Social History Narrative Not on file Social Drivers of Health Financial Resource Strain: Not on file Food Insecurity: Not on file Transportation Needs: Not on file Physical Activity: Not on file Stress: Not on file Social Connections: Not on file Intimate Partner Violence: Unknown (03/30/2023) [facility] Safety & Environment Fear of Current or Ex-Partner: Not on file Emotionally Abused: Not on file Physically Abused: Not on file Sexually Abused: Not on file Physically or Sexually Abused: Not on file Housing Stability: Not on file ROS: General: denies fever, chills, fatigue, malaise Gastrointestinal: denies abdominal pain, ulcers, or changes in appetite or bowel habits Musculoskeletal: denies arthritis, denies loss of strength, pain to hip, knees, back Cardiovascular: denies CP, palpitations, irregular rhythms OBJECTIVE LE EXAM: DERM: Elongated thick yellow crumbly nails digits 1 through 10. Diminished hair growth b/l feet. Rubor to lateral aspect of the left 5th metatarsal region and notable hyperkeratotic lesions between left 4th and 5th digits PIPJ regions VASC: Negative palpable pedal pulses bilaterally NEURO: Gross sensation intact to bilateral feet ORTHO: Positive pain on palpation to toenails of the left 1,2,3,4,5 toes and right 1,2,3,4,5 toes Adductovarus left 5th digit with flexion of left 4th toe ASSESSMENT 1. Acquired deformity of left toe 2. Pain due to onychomycosis of toenails of both feet PLAN Discussed proper foot care with patient today. Debride nails in length and thickness digits 1 through 10 Continue with toe spacers to the left foot and discussed possible surgery but patient does not wantas toe spacers or working for and discussed a 2 week postoperative time. Patient like to continue with toe spacers Ronn Talbot DPM documented in this encounterResearch Belton HospitalJegcqbtskz31-49-7885 History of Present illness Narrative* Ronn Talbot DPM - 09/04/2024 11:30 AM EDT Patient: Ana Mays : 1940 PCP: Vidya Pereyra MD SUBJECTIVE This is a 83 y.o. female that presents today with a CC of elongated, thick nails. Pt states nails have been elongated and thick for many years and cause pain with ambulation in shoegear. Pt has tried previous treatment with minimal relief. Pt presents today for nail care and treatment. Patient also has issue with left 4th 5th digits with rubbing and uses toe spacers daily and some irritation with discussion of sx In the past and use of spacers. Allergies: No Known Allergies Past Medical History: No past medical history on file. Medications: Current Outpatient Medications: amLODIPine (Norvasc) 5 MG tablet, Take 5 mg by mouth in the morning., Disp: , Rfl: latanoprost (Xalatan) 0.005 % ophthalmic solution, INSTILL 1 DROP INTO EACH EYE AT BEDTIME, Disp: ,Rfl: losartan (Cozaar) 100 MG tablet, Take 100 mg by mouth Daily as directed, Disp: , Rfl: omeprazole (PriLOSEC) [address] capsule, Take 20 mg by mouth Daily, Disp: , Rfl: simvastatin (Zocor) 20 MG tablet, Take 20 mg by mouth, Disp: , Rfl: Social History: Social History Socioeconomic History Marital status: Spouse name: Not on file Number of children: Not on file Years of education: Not on file Highest education level: Not on file Occupational History Not on file Tobacco Use Smoking status: Unknown Smokeless tobacco: Not on file Substance and Sexual Activity Alcohol use: Defer Drug use: Defer Sexual activity: Not on file Other Topics Concern Not on file Social History Narrative Not on file Social Drivers of Health Financial Resource Strain: Not on file Food Insecurity: Not on file Transportation Needs: Not on file Physical Activity: Not on file Stress: Not on file Social Connections: Not on file Intimate Partner Violence: Unknown (03/30/2023) Re[facility] from [facility] [place] Safety & Environment Fear of Current or Ex-Partner: Not on file Emotionally Abused: Not on file Physically Abused: Not on file Sexually Abused: Not on file Physically or Sexually Abused: Not on file Housing Stability: Not on file ROS: General: denies fever, chills, fatigue, malaise Gastrointestinal: denies abdominal pain, ulcers, or changes in appetite or bowel habits Musculoskeletal: denies arthritis, denies loss of strength, pain to hip, knees, back Cardiovascular: denies CP, palpitations, irregular rhythms OBJECTIVE LE EXAM: DERM: Elongated thick yellow crumbly nails digits 1 through 10. Diminished hair growth b/l feet. Rubor to lateral aspect of the left 5th metatarsal region and notable hyperkeratotic lesions between left 4th and 5th digits PIPJ regions VASC: Negative palpable pedal pulses bilaterally NEURO: Gross sensation intact to bilateral feet ORTHO: Positive pain on palpation to toenails of the left 1,2,3,4,5 toes and right 1,2,3,4,5 toes Adductovarus left 5th digit with flexion of left 4th toe ASSESSMENT 1. Verruca plantaris 2. Foot pain, left 3. Acquired deformity of left toe 4. Pain due to onychomycosis of toenails of both feet PLAN Discussed proper foot care with patient today. Debride nails in length and thickness digits 1 through 10 Continue with toe spacers to the left foot Ronn Talbot DPM documented in this encounterResearch Belton HospitalWzzsmjokrw68-45-6596 Evaluation note* Diagnosis Onset Date Resolution Status Admit Date Piriformis syndrome of right side acuteJune 2024 8:53am [facility] Work Phone: 1(155) 911-932806-03-2025 Evaluation note* Diagnosis Onset Date Resolution Status Admit Date Piriformis syndrome of right side acuteJune 2024 8:53amAbdominal painacuteAugust 2024 10:33am [facility] Work Phone: 1(678) 994-545805-01-2025 Evaluation note* Diagnosis Onset Date Resolution Status Admit Date Sinusitis, acute maxillary acuteMay 2024 1:51pm [facility] Work Phone: 1(236) 519-649403-06-2025 History of Present illness Narrative* Ronn Talbot DPM - 04/10/2024 11:00 AM EST Patient: Ana Mays : 1940 PCP: Vidya Pereyra MD SUBJECTIVE This is a 83 y.o. female that presents today with a CC of elongated, thick nails. Pt states nails have been elongated and thick for many years and cause pain with ambulation in shoegear. Pt has tried previous treatment with minimal relief. Pt presents today for nail care and treatment. Patient also has issue with left 4th 5th digits with rubbing and uses toe spacers daily and some irritation with discussion of sx In the past and use of spacers. PT presents today for follow up of skin lesion/neoplasm of unknown origin to the left foot Pt states that previous treatment of acid tx with some improvement Pt rates pain the pain on a 1-10 scale an intensity of 4 Pt presents today for followup. Allergies: No Known Allergies Past Medical History: No past medical history on file. Medications: Current Outpatient Medications: amLODIPine (Norvasc) 5 MG tablet, Take 5 mg by mouth in the morning., Disp: , Rfl: latanoprost (Xalatan) 0.005 % ophthalmic solution, INSTILL 1 DROP INTO EACH EYE AT BEDTIME, Disp: ,Rfl: losartan (Cozaar) 100 MG tablet, Take 100 mg by mouth Daily as directed, Disp: , Rfl: omeprazole (PriLOSEC) [address] capsule, Take 20 mg by mouth Daily, Disp: , Rfl: simvastatin (Zocor) 20 MG tablet, Take 20 mg by mouth, Disp: , Rfl: Social History: Social History Socioeconomic History Marital status: Spouse name: Not on file Number of children: Not on file Years of education: Not on file Highest education level: Not on file Occupational History Not on file Tobacco Use Smoking status: Unknown Smokeless tobacco: Not on file Substance and Sexual Activity Alcohol use: Defer Drug use: Defer Sexual activity: Not on file Other Topics Concern Not on file Social History Narrative Not on file Social Drivers of Health Financial Resource Strain: Not on file Food Insecurity: Not on file Transportation Needs: Not on file Physical Activity: Not on file Stress: Not on file Social Connections: Not on file Intimate Partner Violence: Unknown (03/30/2023) [facility] [place] Safety & Environment Fear of Current or Ex-Partner: Not on file Emotionally Abused: Not on file Physically Abused: Not on file Sexually Abused: Not on file Physically or Sexually Abused: Not on file Housing Stability: Not on file ROS: General: denies fever, chills, fatigue, malaise Gastrointestinal: denies abdominal pain, ulcers, or changes in appetite or bowel habits Musculoskeletal: denies arthritis, denies loss of strength, pain to hip, knees, back Cardiovascular: denies CP, palpitations, irregular rhythms OBJECTIVE LE EXAM: DERM: Elongated thick yellow crumbly nails digits 1 through 10. Diminished hair growth b/l feet. Rubor to lateral aspect of the left 5th metatarsal region and notable hyperkeratotic lesions between left 4th and 5th digits PIPJ regions Nummular lesion measuring at the left sub 5th metatarsal measuring 0.1 cm x 0.1 cm. VASC: Negative palpable pedal pulses bilaterally NEURO: Gross sensation intact to bilateral feet ORTHO: Positive pain on palpation to toenails of the left 1,2,3,4,5 toes and right 1,2,3,4,5 toes Adductovarus left 5th digit with flexion of left 4th toe ASSESSMENT 1. Acquired deformity of left toe 2. Verruca plantaris 3. Foot pain, left 4. Pain due to onychomycosis of toenails of both feet PLAN Discussed proper foot care with patient today. Debride nails in length and thickness digits 1 through 10 Application of salinocaine acid medication to lesion/lesions located at left foot Informed pt of risks and benefits of procedure including high reoccurence rate, infection, pain andconsent given. Application of DSD post procedure. Ronn Talbot DPM documented in this [facility]12-26-2024 History of Present illness Narrative* Ronn Talbot DPM - 01/31/2024 11:10 AM EST Patient: Ana Mays : 1940 PCP: Vidya Pereyra MD SUBJECTIVE This is a 83 y.o. female that presents today with a CC of elongated, thick nails. Pt states nails have been elongated and thick for many years and cause pain with ambulation in shoegear. Pt has tried previous treatment with minimal relief. Pt presents today for nail care and treatment. Patient also has issue with left 4th 5th digits with rubbing and uses toe spacers daily and some irritation with discussion of sx In the past and use of spacers. Patient also has complaints of pain to the plantar aspect of the left foot with sharp painful sensations from time to time has tried to trim lesion to the bottom of her foot with some improvement butstill has sharp pains with ambulation Allergies: No Known Allergies Past Medical History: No past medical history on file. Medications: Current Outpatient Medications: amLODIPine (Norvasc) 5 MG tablet, Take 5 mg by mouth in the morning., Disp: , Rfl: latanoprost (Xalatan) 0.005 % ophthalmic solution, INSTILL 1 DROP INTO EACH EYE AT BEDTIME, Disp: ,Rfl: losartan (Cozaar) 100 MG tablet, Take 100 mg by mouth Daily as directed, Disp: , Rfl: omeprazole (PriLOSEC) [address] capsule, Take 20 mg by mouth Daily, Disp: , Rfl: simvastatin (Zocor) 20 MG tablet, Take 20 mg by mouth, Disp: , Rfl: Social History: Social History Socioeconomic History Marital status: Spouse name: Not on file Number of children: Not on file Years of education: Not on file Highest education level: Not on file Occupational History Not on file Tobacco Use Smoking status: Unknown Smokeless tobacco: Not on file Substance and Sexual Activity Alcohol use: Defer Drug use: Defer Sexual activity: Not on file Other Topics Concern Not on file Social History Narrative Not on file Social Drivers of Health Financial Resource Strain: Not on file Food Insecurity: Not on file Transportation Needs: Not on file Physical Activity: Not on file Stress: Not on file Social Connections: Not on file Intimate Partner Violence: Unknown (03/30/2023) Re[facility] from [facility] Safety & Environment Fear of Current or Ex-Partner: Not on file Emotionally Abused: Not on file Physically Abused: Not on file Sexually Abused: Not on file Physically or Sexually Abused: Not on file Housing Stability: Not on file ROS: General: denies fever, chills, fatigue, malaise Gastrointestinal: denies abdominal pain, ulcers, or changes in appetite or bowel habits Musculoskeletal: denies arthritis, denies loss of strength, pain to hip, knees, back Cardiovascular: denies CP, palpitations, irregular rhythms OBJECTIVE LE EXAM: DERM: Elongated thick yellow crumbly nails digits 1 through 10. Diminished hair growth b/l feet. Rubor to lateral aspect of the left 5th metatarsal region and notable hyperkeratotic lesions between left 4th and 5th digits PIPJ regions Nummular lesion measuring at the left sub 5th metatarsal measuring 0.1 cm x 0.1 cm. VASC: Negative palpable pedal pulses bilaterally NEURO: Gross sensation intact to bilateral feet ORTHO: Positive pain on palpation to nails 1 through 10 Adductovarus left 5th digit with flexion of left 4th toe ASSESSMENT 1. Acquired deformity of left toe 2. Pain due to onychomycosis of toenails of both feet 3. Neoplasm of uncertain behavior of skin 4. Verruca plantaris 5. Foot pain, left PLAN Discussed proper foot care with patient today. Debride nails in length and thickness digits 1 through 10 Patient continue with toe spacers between left 4th and 5th digits and discuss possible treatment options if worsens including surgical correction in future if no improvement Discussed condition in detail with patient today and discussed conservative treatments and possibleexcisional biopsy of lesion in the future for pathological diagnosis of specimen. Patient may take [id number] NSAID p.r.n. for pain Application of salinocaine acid medication to lesion/lesions located at left foot Informed pt of risks and benefits of procedure including high reoccurence rate, infection, pain andconsent given. Application of DSD post procedure. Ronn Talbot DPM documented in this encounterResearch Belton [id number] NoteUTP CARDIOLOGY PROGRESS NOTE HPI: Ana Mays is a 83 y.o. female here for HTN re-evaluation HPI Patient here for 3 mo follow up atypical chest pain, hypertension. She is doing well. No complains. Patient denies any chest pain or shortness of breath. Patient denies any lower extremity edema, orthopnea, or proximal nocturnal dyspnea. No near-syncope or syncope. No dizziness or lightheadedness. Cardiology ROS: 10 point ROS is performed and is negative unless otherwise specified in HPI. Visit Vitals BP 135/58 Pulse 53 Ht 1.549 m (5' 1 ) Wt 62.1 kg (137 lb) SpO2 99% BMI 25.89 kg/m??? Smoking Status Never BSA 1.63 m??? Allergies Allergen Reactions Bactrim [Sulfamethoxazole-Trimethoprim] Sulfa (Sulfonamide Antibiotics) Medications: Current Outpatient Medications on File Prior to Visit Medication Sig Dispense Refill amLODIPine (Norvasc) 5 mg tablet Take 1 tablet (5 mg) by mouth in the morning. (Patient taking differently: Take 10 mg by mouth in the morning.) 90 tablet 3 simvastatin (Zocor) 20 mg tablet Take 20 mg by mouth at bedtime. omeprazole (PriLOSEC) [address] capsule Take 20 mg by mouth in the morning. No current facility-administered medications on file prior [...] A/P: Primary hypertension Hypertension is well controlled at home Continue losartan [...] months, or sooner as needed Savanna Ramos MDUnSelect [facility]09-[facility] History of Present illness Narrative* Ronn Talbot DPM - 10/31/2023 3:00 PM EDT Patient: Ana Mays : 1940 PCP: Vidya Pereyra MD SUBJECTIVE This is a 82 y.o. female that presents today with a CC of elongated, thick nails. Pt states nails have been elongated and thick for many years and cause pain with ambulation in shoegear. Pt has tried previous treatment with minimal relief. Pt presents today for nail care and treatment. Patient also has issue with left 4th 5th digits with rubbing and uses toe spacers daily and some irritation to the outer aspect of the left foot noted she says mostly in wider shoes with minimal issues today Allergies: No Known Allergies Past Medical History: History reviewed. No pertinent past medical history. Medications: Current Outpatient Medications: latanoprost (Xalatan) 0.005 % ophthalmic solution, INSTILL 1 DROP INTO EACH EYE AT BEDTIME, Disp: ,Rfl: omeprazole (PriLOSEC) [address] capsule, Take 20 mg by mouth Daily, Disp: , Rfl: simvastatin (Zocor) 20 MG tablet, Take 20 mg by mouth, Disp: , Rfl: amLODIPine (Norvasc) 5 MG tablet, Take 5 mg by mouth in the morning., Disp: , Rfl: losartan (Cozaar) 100 MG tablet, Take 100 mg by mouth Daily as directed, Disp: , Rfl: Social History: Social History Socioeconomic History Marital status: Spouse name: Not on file Number of children: Not on file Years of education: Not on file Highest education level: Not on file Occupational History Not on file Tobacco Use Smoking status: Unknown Smokeless tobacco: Not on file Substance and Sexual Activity Alcohol use: Defer Drug use: Defer Sexual activity: Not on file Other Topics Concern Not on file Social History Narrative Not on file Social Determinants of Health Financial Resource Strain: Not on file Food Insecurity: Not on file Transportation Needs: Not on file Physical Activity: Not on file Stress: Not on file Social Connections: Not on file Intimate Partner Violence: Unknown (03/30/2023) Received from [facility] [place] [employer] Environment Fear of Current or Ex-Partner: Not on file Emotionally Abused: Not on file Physically Abused: Not on file Sexually Abused: Not on file Physically or Sexually Abused: Not on file Housing Stability: Not on file ROS: General: denies fever, chills, fatigue, malaise Gastrointestinal: denies abdominal pain, ulcers, or changes in appetite or bowel habits Musculoskeletal: denies arthritis, denies loss of strength, pain to hip, knees, back Cardiovascular: denies CP, palpitations, irregular rhythms OBJECTIVE LE EXAM: DERM: Elongated thick yellow crumbly nails digits 1 through 10. Diminished hair growth b/l feet. Rubor to lateral aspect of the left 5th metatarsal region and notable hyperkeratotic lesions between left 4th and 5th digits PIPJ regions VASC: Negative palpable pedal pulses bilaterally NEURO: Gross sensation intact to bilateral feet ORTHO: Positive pain on palpation to nails 1 through 10 Adductovarus left 5th digit with flexion of left 4th toe ASSESSMENT 1. Metatarsal deformity, left 2. Acquired deformity of left toe 3. Onychomycosis 4. Toe pain, bilateral PLAN Discussed proper foot care with patient today. Debride nails in length and thickness digits 1 through 10 Patient continue with toe spacers between left 4th and 5th digits and discuss possible treatment options if worsens including surgical correction in future if no improvement Ronn Talbot DPM documented in this encounterResearch Belton [id number] NoteUTP CARDIOLOGY PROGRESS NOTE HPI: Ana Mays is a 82 [...] months, or sooner as needed Savanna Ramos MDUnSelect Medical Special[facility] [place]01-26-2024 Note Hypertension is much improved in office and pt states b/p at home and review of b/p log shows HTN is well controlled at home Continue losartan 100 mg and norvasc 5 mg Repeat renal function after increased losartan dose remained stableUnSelect Medical Specialty Hospital [facility] [place]01-26-2024 NotePatient here for 3 mo follow up atypical chest pain, DEJESUS, hypertension, and valve disorder. Losartan was increased to 100mg daily at last apt in Dec [address] Ramos. She is doing well with medication increase. Still denies chest pain, SOB, and palpitations. Review of Systems Musculoskeletal: Positive for muscle weakness. Neurological: Positive for headaches. All other systems reviewed and are negative.[facility] 03-02-2023 NoteUTP CARDIOLOGY PROGRESS NOTE HPI: Ana Mays is a 82 [...] stable Continue meds as prescribed, [facility] Evaluation note* Encounter Date Diagnosis Assessment Notes Treatment Notes Treatment Clinical Notes Nov, Dysuria (ICD-10 - R30.0) Culture pending. Treat empirically in meantime. Improve hydration. [facility] Other 09-11-2023 Evaluation note* Encounter Date Diagnosis Assessment Notes Treatment Notes Treatment Clinical Notes Oct, Essential (primary) hypertension (ICD-10 - I10) 158/64 on recheck. est w Dr. Garcia. She agrees to referral as her bps are labile. She declines stress test that was ordered in September - denies further chest pain from the 09/12 ER visit. Oct,Lightheaded (ICD-10 - R42)Discussed differential - notes visual issues (cataracts, glaucoma, MD) and labile bps at home and at office. Will proceed with the referral to Cardiology. [facility] Other 08-11-2023 Evaluation note* Encounter Date Diagnosis Assessment Notes Treatment Notes Treatment Clinical Notes Sep, Essential (primary) hypertension (ICD-10 - I10) Add losartan to the Norvasc for improved BP control. Limit salt and walk daily as able. Apr,Chest pain, unspecified (ICD-10 - R07.9)Chest painDiscussed symptoms. Pt agrees to stress test. Will arrange at the hospital to r/o CAD. [facility] Other 08-02-2023 Evaluation note* Encounter Date Diagnosis Assessment Notes Treatment Notes Treatment Clinical Notes Sep, Vertigo (ICD-10 - R42) Discussed diagnosis with patient and instructed to take medications as prescribed. Antivert 12.5 mgpo Q8 hours prn. Do not lie flat [...] and call next week with updated numbers [facility] Other 05-11-2023 Evaluation note* Encounter Date Diagnosis Assessment Notes Treatment Notes Treatment Clinical Notes June, Bronchitis (ICD-10 - J40) Encouraged her to continue mucinex, rest, fluids. Call or ER if not improving. [facility] Other 03-06-2023 Evaluation note* Encounter Date Diagnosis [...] symptoms. Any developing patterns. Stay well hydrated. [facility] Other Evaluation noteNo InformationNort GoTable Other Evaluation noteNo assessment information available [facility] Work Phone: Evaluation note* Diagnosis Onset Date Resolution Status Abdominal pain acute [facility] Work Phone: Evaluation note* Diagnosis Onset Date Resolution Status Abdominal pain acuteAbdominal painacute [facility] Work Phone: Evaluation note* Diagnosis Onset Date Resolution Status Abdominal pain acuteAbdominal painacuteEssential (primary) hypertensionacuteIngrown toenail of right foot with infectionacute [facility] Work Phone: Evaluation note* Diagnosis Metatarsal deformity, left- Primary Acquired deformity of left toe Onychomycosis Dermatophytosis of nail Toe pain, bilateral documented [facility] encounter [facility]* Diagnosis Neoplasm of uncertain behavior of skin- Primary Acquired deformity of left toe Pain due to onychomycosis of toenails of both feet Verruca plantaris Plantar wart Foot pain, left Pain in soft tissues of limb documented [facility] this encounter [facility]* Diagnosis Acquired deformity of left toe- Primary Verruca plantaris Plantar wart Foot pain, left Pain in soft tissues of limb Pain due to onychomycosis of toenails of both feet documented [facility] this encounter [facility]* Diagnosis Acquired deformity of left toe- Primary Pain due to onychomycosis of toenails of both feet documented in this encounter [facility] HealthcareHistory general Narrative - Reported* Type Description Date Medical History Esophageal reflux Medical Historyhigh cholesterolSurgical Historytubal ligationHospitalization Historysee above [facility] Other Hospital Discharge instructionsAmbulatory Orders* Referral to Gastroenterology Time Frame: 08/14/23, Location: None [facility] Work Phone: Hospital Discharge instructionsAmbulatory Orders* Referral to Podiatry Time Frame: 10/04/23, Location: None [facility] Work Phone: Reason for referral (narrative)No reason for referral information availableDoctors Hospital Work Phone: Summary Purpose Family History No Family History Records Found Relationship Condition Age at Onset Recorded Date/T collin brother Unknown daughterMalignant neoplasmUnknownfatherHeart diseaseUnknownDeceasedUnknownfamily memberDeceasedUnknownNot SpecifiedDeceasedUnknown Relationship Condition Age at Onset Recorded Date/T collin brother Unknown daughterMalignant neoplasmUnknownfatherHeart diseaseUnknownDeceasedUnknownfamily memberDeceasedUnknownmotherDeceasedUnknown Advance Directives No Advanced Directives Records Found Advance Directive Response Recorded Date/ Time Advance Directives No January 8:55pm Advance Directive Response Recorded Date/ Time Advance Directives No September 08 025 10:31am Reason for Referral Reason * 10/23 Dr. Janki jerez at [facility]. - Last OV and today, [place] ER on 09/12 - lightheadedness, uncontrolled HTN Diagnosis 1 Essential (primary) hypertension (I10) Referral Organization [facility] Referring Provider First Name Vidya Referring Provider Last Name Hafsa Referring Provider Specialty [facility] Referred Organization [facility] Referred Provider Alcon Cormier V Referred Address [address],[place] Referred Provider Specialty Cardiovascul ar Disease Referral Priority Routine General Notes Veronica Mahan 11:39:32 AM >received today, attachments made, notes locked, referral faxed Clinical Notes P: [id number] F: [id number] Chief Complaint and Reason for Visit Chief Complaint Amb Documentation possible UTIReason for VisitAbdominal pain Chief Complaint possible UTI r10.9 follow up testingReason for VisitAbdominal pain Abdominal pain Chief Complaint possible UTI r10.9 follow up testing ingrown toenailReason for VisitAbdominal pain Abdominal pain Essential (primary) hypertension Ingrown toenail of right foot with infection Chief Complaint Admit Date cough, sinus infection June 05, 2024 1:5 1pm Chief Complaint Admit Date cough, sinus infection June 05, 2024 1:5 1pm lower back/right hip pain July 08, 2024 8:53am Reason for Visit Admit Date Sinusitis, acute maxillary June 05, 2024 1:51pm Chief Complaint Admit Date lower back/right hip pain July 08, 2024 8:53am UA, frequency, stomach/back pain September 08, 2024 10:33am Reason for Visit Admit Date Piriformis syndrome of right side July 082024 8:53am Reason for Visit Admit Date Piriformis syndrome of right side July 082024 8:53am Abdominal pain September 08, 2024 10: 33am Additional Source Comments INFORMATION SOURCE (unrecogn ized section and content) DATE CREATED AUTHOR 02/01/2022 [facility] DATE CREATED AUTHOR AUTHOR'S ORGANIZ ATION 12/24/2023 [facility] DATE CREATED AUTHOR AUTHOR'S ORGANIZ ATION 09/11/2024 [facility] DATE CREATED AUTHOR AUTHOR'S ORGANIZ ATION 11/29/2024 [facility] EPIC REASON FOR VISIT (unrecogniz ed section and content) ReasonCommentsToenail CareNon dm nail careReasonCommentsToenail Care Care Teams (unrecognized sec tion and content) Team Status: Active Member Role Status Dates Joce Moreno DO Primary Care Provider Active Team Status: Active Member Role Status Dates Joce Moreno DO Primary Care Provider Active Start: April 27, 2023 Cathy Larson ProviderActiveStart: April 27, 2023 Team Status: Inactive Member Role Status Dates Joce Moreno DO Primary Care Provider Active Start: July 23, 2023 End: July 23, 2023Ofe Stiles ProviderActiveStart: July 23, 2023 End: July 23, 2023 Team Status: Inactive Member Role Status Dates Joce Moreno DO Primary Care Provider Active Vidya Pereyra MDAttending ProviderActive Team Status: Active Member Role Status Dates Vidya Pereyra MD Primary Care Provider Active Team Status: Inactive Member Role Status Dates iVdya Pereyra MD Primary Care Provide r, Attending Provider Active Start: August 14, 2023 End: August 14, 2023 Team Status: Active Member Role Status Dates Vidya Pereyra MD Primary Care Provide r, Attending Provider Active Start: August 29, 2023 Team Status: Inactive Member Role Status Dates Vidya Pereyra MD Primary Care Provide r, Attending Provider Active Start: October 04, 2023 End: October 04, 2023Team MemberRelationshipSpecialtyStart DateEnd Date Vidya Pereyra MD [address] [place] [facility] [place] [id number] PCP - GeneralFamily Medicine10/31/23Team MemberRelationshipSpecialtyStart DateEnd Date Vidya Pereyra MD [address] [place] [facility] [place] [phone] PCP - GeneralFamily Medicine10/31/23Team MemberRelationshipSpecialtyStart DateEnd Date Viday Pereyra MD [address] [place] [facility] [place] [phone] PCP - GeneralFamily Medicine10/31/23Team MemberRelationshipSpecialtyStart DateEnd Date Vidya Pereyra MD [address] [place] [facility] [place] [address] PCP - GeneralFamily Medicine10/31/23Team MemberRelationshipSpecialtyStart DateEnd Date Vidya Pereyra MD [address] [place] [facility] [place] [address] PCP - [facility]10/31/23 Team Status: Inactive Member Role Status Dates Vidya Pereyra MD Primary Care Provide r, Attending Provider Active Start: June 05, 2024 End: June 05, 2024 Team Status: Inactive Member Role Status Dates Vidya Pereyra MD Primary Care Provide r, Attending Provider Active Start: July 08, 2024 End: July 08, 2024Team MemberRelationshipSpecialtyStart DateEnd Date Vidya Pereyra MD [address] [place] [phone] [facility]10/31/23Team MemberRelationshipSpecialtyStart DateEnd Date Vidya Pereyra MD [address] [place] [facility] [place] [phone] [facility]10/31/23 Team Status: Inactive Member Role Status Dates Vidya Pereyra MD Primary Care Provider Active Start: July 08, 2024 End: July 08, 2024Ofe Stiles ProviderActiveStart: July 08, 2024 End: July 08, 2024 Team Status: Inactive Member Role Status Dates Vidya Pereyra MD Primary Care Provider Active Start: September 08, 2024 End: September 08, 2024Ofe Stiles ProviderActiveStart: September 08, 2024 End: September 08, 2024 Team Status: Inactive Member Role Status Dates Vidya Pereyra MD Attending Provider Active St art: September 08, 2024 End: September 08, 2024 Goals (unrecognized section and content) Goals may [...] BE BASED ON THE PRIMARY CLINICAL RECORDS. [facility] [employer] [facility]. provides no warranty or guarantee of the accuracy or completeness of information in this document.
[2024-12-30 09:13] LABS: Hematocrit 40.9 % (36.0-48.0); Hemoglobin 13.6 g/dL (12.0-16.0); Immature Granulocytes Abs Auto 0.02 10^3/uL (0.00-0.03); Immature Granulocytes Pct Auto 0.3 % (0.0-0.5); Lymphocytes Absolute Auto 1.5 10^3/uL (1.2-3.8); Mean Corpuscular HGB Conc 33.3 g/dL (29.9-35.2); Mean Corpuscular Hemoglobin 31.0 pg (26.7-34.0); Mean Corpuscular Volume 93.2 fL (81.0-99.0); Platelet Count 258 10^3/uL (150-450); Red Blood Count 4.39 10^6/uL (4.20-5.40); White Blood Count 6.1 10^3/uL (4.0-11.0)
[2024-12-30 09:33] LABS: Alanine Aminotransferase 20 U/L (14-59); Albumin Globulin Ratio 0.9; Albumin Level 3.7 g/dL (3.4-5.0); Alkaline Phosphatase 104 U/L (46-116); Anion Gap 13.2; Aspartate Amino Transferase 19 U/L (15-37); Blood Urea Nitrogen 20.0 mg/dL (7.0-18.0); Calcium 9.3 mg/dL (8.5-10.1); Carbon Dioxide 26.9 mmol/L (21.0-32.0); Chloride 106 mmol/L (98-107); Cholesterol 210 mg/dL (<=200); Estimated GFR (African America >60 (>=60 mL/min/1.73m^2); Estimated GFR (Non-African Ame >60 (>=60 mL/min/1.73m^2); Globulin 3.9 g/dL; Glucose 93 mg/dL (74-106); HDL Cholesterol 70 mg/dL (40-60); Potassium 4.1 mmol/L (3.5-5.1); Sodium 142 mmol/L (136-145); Total Protein 7.6 g/dL (6.4-8.2); Triglycerides 105 mg/dL (<=150); VLDL CHOLESTEROL 21.0 mg/dL
== END 2024-12-30 08:48 | disposition home or self-care (01) ==
LOC: LAB 08:52
PROVIDERS: PCP Family Medicine; Visit Provider Family Medicine
DX: E78.00 Pure hypercholesterolemia, unspecified (principal); I10 Essential (primary) hypertension
CPT/HCPCS: 36415; 80053; 80061; 82043; 82570; 85025